=== PATIENT | female | born 1985 | race Caucasian/White ===

== ENCOUNTER 2017-01-10 02:43 | Inpatient (IN) | payer MEDICAID, OTHER ==
[2017-01-10] MEDS ORDERED: ZOFRAN PO ONE (02:59)
[2017-01-10] MEDS ORDERED: ZOFRAN ODT ONE (03:05)
[2017-01-10 03:25] LABS: Hematocrit 37.2 % (30.3-42.9); Mean Corpuscular HGB Conc 35 % (30-34); Mean Corpuscular Hemoglobin 29 pg (28-32); Mean Corpuscular Volume 83 fl (79-97); Platelet Count 305 K/mm3 (140-440); Red Cell Distribution Width 14.3 % (13.2-15.2)
[2017-01-10 03:50] LABS: Alanine Aminotransferase 125 units/L (7-56); Albumin/Globulin Ratio 1.3 %; Alkaline Phosphatase 143 units/L (35-129); Anion Gap 19 mmol/L; BUN/Creatinine Ratio 12; Blood Urea Nitrogen 11 mg/dL (7-17); Calcium 10.3 mg/dL (8.4-10.2); Carbon Dioxide 22 mmol/L (22-30); Chloride 100.6 mmol/L (98-107); Glucose 103 mg/dL (65-100); Lipase 30 units/L (13-60); Potassium 3.7 mmol/L (3.6-5.0); Sodium 138 mmol/L (137-145); Total Protein 7.2 g/dL (6.3-8.2)
[2017-01-10] MEDS ORDERED: ZOFRAN ODT PO ONE (04:00)
[2017-01-10 04:18] LABS: Basophils % (Manual) 0 % (0.0-1.8); Blastocytes % (Manual) 0 %; Diff Status Complete; Eosinophils % (Manual) 0 % (0.0-4.3); Platelet Estimate Consistent w Auto
[2017-01-10 06:02] LABS: Bilirubin,Urine NEG (Negative); Blood,Urine SM (Negative); Ketones,Urine NEG (Negative); Leukocyte Esterase,Urine SM (Negative); Nitrite,Urine NEG (Negative); Protein,Urine <15 mg/dL mg/dL (Negative); Urobilinogen,Urine < 2.0 mg/dL (<2.0)
--- NOTE | 2017-01-10 07:44 | Emergency Department Report ---
Addendum entered and electronically signed by LAURA YOUNG PA 01/10/17 14:16 : Blank Doc - Documentation Documentation: Patient with Temp > 101 and pulse 140. Decision to admit. I collaborated with DR. Torres on patient presentation, labs, and changing status. Decision was made to admit via hospitalist and consult [facility]. [facility] called to inform of plans. Addendum entered and electronically signed by LAURA YOUNG PA 01/10/17 14:07 : Blank Doc - Documentation Documentation: Patient Pulse 140 prior to d/c. IVF x 1 liter and observe Original Note: <LAURA YOUNG - Last Filed: 01/10/17 14:12> ED Abdominal Pain HPI - General Chief Complaint: Abdominal Pain Stated Complaint: LOWER ABD PAIN Time Seen by Provider: 01/10/17 07:20 Source: patient, family Mode of arrival: Ambulatory Limitations: No Limitations - History of Present Illness Initial Comments: Patient airport right lower quadrant abdominal pain since 6:00 yesterday. She reports nausea and vomiting denies any fever or chills. Says the pain is crampy and sharp and radiated into her right back. Patient reports pain is at its 10 out of 10 and constant. She reports nausea and vomiting but denies any fever or chills. Denies any urinary burning frequency or urgency. Patient had a history of kidney stone in the past with previous . MD Complaint: abdominal pain -: Last night Location: RLQ Radiation: R flank Migration to: no migration Severity: severe Severity scale (0 -10): 10 Quality: cramping, stabbing Consistency: constant Improves With: nothing Worsens With: nothing Context: other (unknown) Associated Symptoms: nausea, vomiting. denies: diarrhea, fever, chills, constipation, dysuria, hematemesis, hematochezia, melena, hematuria, anorexia, syncope Treatments Prior to Arrival: other (none) - Related Data Allergies Allergy/AdvReac Type Severity Reaction Status Date / Time No Known Allergies Allergy Verified 08/10/14 08:56 ED Review of Systems ROS: Stated complaint: LOWER ABD PAIN Other details as noted in HPI Comment: All other systems reviewed and negative Constitutional: no symptoms reported Respiratory: no symptoms reported Cardiovascular: denies: chest pain, palpitations, edema, syncope Gastrointestinal: abdominal pain, nausea, vomiting. denies: diarrhea, constipation, hematemesis, melena, hematochezia Genitourinary: denies: urgency, dysuria, frequency, hematuria, discharge Musculoskeletal: back pain. denies: joint swelling, arthralgia, myalgia Skin: denies: rash Neurological: denies: headache, weakness, numbness, paresthesias, confusion, abnormal gait, vertigo ED Past Medical Hx - Past Medical History Previous Medical History?: Yes Hx Hypertension: No Hx Congestive Heart Failure: No Hx Diabetes: No Hx Deep Vein Thrombosis: No Hx Renal Disease: No Hx Sickle Cell Disease: No Hx Seizures: No Hx Asthma: No Hx COPD: No Hx HIV: No - Surgical History Past Surgical History?: Yes Hx Cholecystectomy: Yes ("visicula") Additional Surgical History: x2 - Family History Family history: no significant - Social History Smoking Status: Never Smoker Substance Use Type: None ED Physical Exam - General Limitations: No Limitations General appearance: alert, in no apparent distress - Head Head exam: Present: atraumatic, normocephalic, normal inspection - Eye Eye exam: Present: normal appearance, PERRL, EOMI. Absent: scleral icterus, conjunctival injection, nystagmus, periorbital swelling, periorbital tenderness Pupils: Present: normal accommodation - ENT ENT exam: Present: normal exam, normal orophraynx, mucous membranes moist, TM's normal bilaterally, normal external ear exam - Neck Neck exam: Present: normal inspection, full ROM. Absent: tenderness, meningismus, lymphadenopathy - Respiratory Respiratory exam: Present: normal lung sounds bilaterally. Absent: respiratory distress, wheezes, rales, rhonchi, stridor, chest wall tenderness, accessory muscle use, decreased breath sounds, prolonged expiratory - Cardiovascular Cardiovascular Exam: Present: normal rhythm, tachycardia, normal heart sounds. Absent: systolic murmur, diastolic murmur - GI/Abdominal GI/Abdominal exam: Present: soft, tenderness (generalized tenderness), normal bowel sounds. Absent: distended, guarding, rebound, rigid, organomegaly, mass, bruit, pulsatile mass, hernia - Extremities Exam Extremities exam: Present: normal inspection, full ROM, normal capillary refill , other (No clubbing, cyanosis or edema. +2 pulses in all extremities. No neurovascular compromise). Absent: tenderness, pedal edema, joint swelling, calf tenderness - Back Exam Back exam: Present: normal inspection, full ROM, CVA tenderness (R). Absent: tenderness, CVA tenderness (L), muscle spasm, paraspinal tenderness, vertebral tenderness, rash noted - Neurological Exam Neurological exam: Present: alert, oriented X3, normal gait, reflexes normal. Absent: motor sensory deficit - Psychiatric Psychiatric exam: Present: normal affect, normal mood - Skin Skin exam: Present: warm, dry, intact, normal color. Absent: rash ED Course Vital Signs 01/10/17 01/10/17 01/10/17 02:47 02:53 08:05 Temperature 97.8 F 97.8 F 98.9 F Pulse Rate 122 H 100 H Respiratory 18 16 Rate Blood Pressure 113/74 113/74 Blood Pressure [Left] O2 Sat by Pulse 98 98 Oximetry 01/10/17 01/10/17 01/10/17 08:10 08:15 10:34 Temperature Pulse Rate 115 H Respiratory 20 20 18 Rate Blood Pressure 105/69 Blood Pressure [Left] O2 Sat by Pulse 100 98 Oximetry 01/10/17 01/10/17 01/10/17 12:08 12:55 14:07 Temperature 101.8 F H Pulse Rate 140 H 135 H Respiratory 20 20 16 Rate Blood Pressure 109/58 Blood Pressure 105/57 [Left] O2 Sat by Pulse 94 100 Oximetry - Reevaluation(s) Reevaluation #1: 01/10/17 08:30 Patient given morphine 4 mg IV and Zofran 4 mg IV 2 doses.. she was given 1 L for IV fluids and she is awaiting CT scan with IV contrast. Reevaluation #2: 01/10/17 10:38 reevaluation, patient still with abdominal pain and no change in assessment. Patient's CT scan showed that she has 4 millimeter calculus to the distal ureter , 4 cm proximal to UVJ, with hydronephrosis proximally with perirenal stranding. Patient has no gallbladder due to cholecystectomy. Normal appendix. No evidence of diverticulitis. No bowel distention. Stool in colon. Normal liver, spleen, pancreas. Common bile duct diameter 1.1 cm. No intrahepatic bile rotation. I called [facility] and awaiting call back. She was given additional pain medication. She is given Dilaudid 1 mg IV with Reglan 10 mg IV and to receive ceftriaxone 1 g IV. Reevaluation #3: 01/10/17 12:05 Patient and orally challenged in progress. I spoke with urologist who will see patient in his office tomorrow at 8 AM 01/10/17 12:07 Reevaluation #4: 01/10/17 13:40 I communicated with patient via cobbler apprentice regarding diagnosis, treatment plan and follow-up. I also gave her discharge instruction and Armenian and also information from up-to-date about kidney stones and Armenian. ED Medical Decision Making - Lab Data Result diagrams: 01/10/17 03:11 01/10/17 03:11 Lab Results 01/10/17 01/10/17 01/10/17 Range/Units 03:11 03:11 05:00 WBC 7.0 (4.5-11.0) K/mm3 RBC 4.50 (3.65-5.03) M/mm3 Hgb 13.0 (10.1-14.3) gm/dl Hct 37.2 (30.3-42.9) % MCV 83 (79-97) fl MCH 29 (28-32) pg MCHC 35 H (30-34) % RDW 14.3 (13.2-15.2) % Plt Count 305 (140-440) K/mm3 Add Manual Diff Complete Total Counted 100 Seg Neutrophils % Senior Drafter Seg Neuts % (Manual) 75.0 H (40.0-70.0) % Band Neutrophils % 18.0 % Lymphocytes % (Manual) 5.0 L (13.4-35.0) % Reactive Lymphs % (Man) 0 % Monocytes % (Manual) 1.0 (0.0-7.3) % Eosinophils % (Manual) 0 (0.0-4.3) % Basophils % (Manual) 0 (0.0-1.8) % Metamyelocytes % 0 % Myelocytes % 1.0 % Promyelocytes % 0 % Blast Cells % 0 % Nucleated RBC % Not Reportable Seg Neutrophils # Man 5.3 (1.8-7.7) K/mm3 Band Neutrophils # 1.3 K/mm3 Lymphocytes # (Manual) 0.4 L (1.2-5.4) K/mm3 Abs React Lymphs (Man) 0.0 K/mm3 Monocytes # (Manual) 0.1 (0.0-0.8) K/mm3 Eosinophils # (Manual) 0.0 (0.0-0.4) K/mm3 Basophils # (Manual) 0.0 (0.0-0.1) K/mm3 Metamyelocytes # 0.0 K/mm3 Myelocytes # 0.1 K/mm3 Promyelocytes # 0.0 K/mm3 Blast Cells # 0.0 K/mm3 WBC Morphology Not Reportable Hypersegmented Neuts Not Reportable Hyposegmented Neuts Not Reportable Hypogranular Neuts Not Reportable Smudge Cells Not Reportable Toxic Granulation Not Reportable Toxic Vacuolation Not Reportable Dohle Bodies Not Reportable Pelger-Huet Anomaly Not Reportable Shavon Rods Not Reportable Platelet Estimate Consistent w auto Clumped Platelets Not Reportable Plt Clumps, EDTA Not Reportable Large Platelets Not Reportable Giant Platelets Not Reportable Platelet Satelliting Not Reportable Plt Morphology Comment Not Reportable RBC Morphology Not Reportable Dimorphic RBCs Not Reportable Polychromasia Not Reportable Hypochromasia Not Reportable Poikilocytosis Not Reportable Anisocytosis Not Reportable Microcytosis Not Reportable Macrocytosis Not Reportable Spherocytes Not Reportable Pappenheimer Bodies Not Reportable Sickle Cells Not Reportable Target Cells Not Reportable Tear Drop Cells Not Reportable Ovalocytes Not Reportable Helmet Cells Not Reportable Miller-Kendrick Bodies Not Reportable [place] Rings Not Reportable [place] Cells Not Reportable Bite Cells Not Reportable Crenated Cell Not Reportable Elliptocytes Not Reportable Acanthocytes (Spur) Not Reportable Rouleaux Not Reportable Hemoglobin C Crystals Not Reportable Schistocytes Not Reportable Malaria parasites Not Reportable Donald Bodies Not Reportable Hem Pathologist Commnt No Sodium 138 (137-145) mmol/L Potassium 3.7 (3.6-5.0) mmol/L Chloride 100.6 (98-107) mmol/L Carbon Dioxide 22 (22-30) mmol/L Anion Gap 19 mmol/L BUN 11 (7-17) mg/dL Creatinine 0.9 (0.7-1.2) mg/dL Estimated GFR > 60 ml/min BUN/Creatinine Ratio 12 % Glucose 103 H (65-100) mg/dL Calcium 10.3 H (8.4-10.2) mg/dL Total Bilirubin 0.80 (0.1-1.2) mg/dL AST 161 H (5-40) units/L ALT 125 H (7-56) units/L Alkaline Phosphatase 143 H (35-129) units/L Total Protein 7.2 (6.3-8.2) g/dL Albumin 4.0 (3.9-5) g/dL Albumin/Globulin Ratio 1.3 % Lipase 30 (13-60) units/L Urine Color Yellow (Yellow) Urine Turbidity Clear (Clear) Urine pH 7.0 (5.0-7.0) Ur Specific [place] 1.015 (1.003-1.030) Urine Protein <15 mg/dl (Negative) mg/dL Urine Glucose (UA) Neg (Negative) mg/dL Urine Ketones Neg (Negative) mg/dL Urine Blood Sm (Negative) Urine Nitrite Neg (Negative) Urine Bilirubin Neg (Negative) Urine Urobilinogen < 2.0 (<2.0) mg/dL Ur Leukocyte Esterase Sm (Negative) Urine WBC (Auto) 81.0 H (0.0-6.0) /HPF Urine RBC (Auto) 7.0 (0.0-6.0) /HPF U Epithel Cells (Auto) 2.0 (0-13.0) /HPF Urine HCG, Qual (Negative) 01/10/17 Range/Units 05:00 WBC (4.5-11.0) K/mm3 RBC (3.65-5.03) M/mm3 Hgb (10.1-14.3) gm/dl Hct (30.3-42.9) % MCV (79-97) fl MCH (28-32) pg MCHC (30-34) % RDW (13.2-15.2) % Plt Count (140-440) K/mm3 Add Manual Diff Total Counted Seg Neutrophils % Seg Neuts % (Manual) (40.0-70.0) % Band Neutrophils % % Lymphocytes % (Manual) (13.4-35.0) % Reactive Lymphs % (Man) % Monocytes % (Manual) (0.0-7.3) % Eosinophils % (Manual) (0.0-4.3) % Basophils % (Manual) (0.0-1.8) % Metamyelocytes % % Myelocytes % % Promyelocytes % % Blast Cells % % Nucleated RBC % Seg Neutrophils # Man (1.8-7.7) K/mm3 Band Neutrophils # K/mm3 Lymphocytes # (Manual) (1.2-5.4) K/mm3 Abs React Lymphs (Man) K/mm3 Monocytes # (Manual) (0.0-0.8) K/mm3 Eosinophils # (Manual) (0.0-0.4) K/mm3 Basophils # (Manual) (0.0-0.1) K/mm3 Metamyelocytes # K/mm3 Myelocytes # K/mm3 Promyelocytes # K/mm3 Blast Cells # K/mm3 WBC Morphology Hypersegmented Neuts Hyposegmented Neuts Hypogranular Neuts Smudge Cells Toxic Granulation Toxic Vacuolation Dohle Bodies Pelger-Huet Anomaly Shavon Rods Platelet Estimate Clumped Platelets Plt Clumps, EDTA Large Platelets Giant Platelets Platelet Satelliting Plt Morphology Comment RBC Morphology Dimorphic RBCs Polychromasia Hypochromasia Poikilocytosis Anisocytosis Microcytosis Macrocytosis Spherocytes Pappenheimer Bodies Sickle Cells Target Cells Tear Drop Cells Ovalocytes Helmet Cells Miller-Kendrick Bodies [place] Rings Jamia Cells Bite Cells Crenated Cell Elliptocytes Acanthocytes (Spur) Rouleaux Hemoglobin C Crystals Schistocytes Malaria parasites Donald Bodies Hem Pathologist Commnt Sodium (137-145) mmol/L Potassium (3.6-5.0) mmol/L Chloride (98-107) mmol/L Carbon Dioxide (22-30) mmol/L Anion Gap mmol/L BUN (7-17) mg/dL Creatinine (0.7-1.2) mg/dL Estimated GFR ml/min BUN/Creatinine Ratio % Glucose (65-100) mg/dL Calcium (8.4-10.2) mg/dL Total Bilirubin (0.1-1.2) mg/dL AST (5-40) units/L ALT (7-56) units/L Alkaline Phosphatase (35-129) units/L Total Protein (6.3-8.2) g/dL Albumin (3.9-5) g/dL Albumin/Globulin Ratio % Lipase (13-60) units/L Urine Color (Yellow) Urine Turbidity (Clear) Urine pH (5.0-7.0) Ur Specific [place] (1.003-1.030) Urine Protein (Negative) mg/dL Urine Glucose (UA) (Negative) mg/dL Urine Ketones (Negative) mg/dL Urine Blood (Negative) Urine Nitrite (Negative) Urine Bilirubin (Negative) Urine Urobilinogen (<2.0) mg/dL Ur Leukocyte Esterase (Negative) Urine WBC (Auto) (0.0-6.0) /HPF Urine RBC (Auto) (0.0-6.0) /HPF U Epithel Cells (Auto) (0-13.0) /HPF Urine HCG, Qual Negative (Negative) Urine culture pending - Radiology Data Radiology results: report reviewed CT scan of the abdomen and pelvis with contrast revealed patient with 4 mm kidney stone and right ureter, distally. Stone is 4 cm proximal to UVJ with hydronephrosis and perirenal stranding. Negative for appendicitis, diverticulitis or bowel distention. No abnormality noted in liver, spleen, pancreas. Patient had gallbladder removed in the past. - Medical Decision Making ED course: Patient and presented to the emergency room with her family complaining of right lower quadrant abdominal pain radiating to her right flank. CBC shows she has normal white count without any significant abnormality. CMP reveals patient with mild elevation in calcium normal total bilirubin AST and ALT elevated alkaline phosphate elevated. Urinalysis revealed patient with white blood cell in her urine small amount of leukocyte Estrace is small amount of blood. Urine culture sent and pending. I discussed results with patient via cobbler apprentice. Her family is present. She voiced understanding of discharge instructions and treatment plan and need to follow up tomorrow at [facility] for 8 AM appointment. She was given discharge instruction on kidney stone in Armenian and also given an up-to-date patient education on kidney stone in Armenian. Patient received normal saline 1 L in the emergency room and she was given Zofran 8 mg in 4 mg increments. She was also given morphine 4 mg IV which did not help her pain so she was given Dilaudid 1 mg IV along with Reglan 10 mg IV and she says she has very little pain at present. Patient was orally challenged she is able tolerate fluids without any difficulties. Patient was also given Rocephin 1 g IV in the emergency room without any adverse reaction Patient vital signs remained stable in emergency room. She was discharged home in stable condition with her family with prescription for Percocet, Phenergan and Levaquin. Critical care attestation.: If time is entered above; I have spent that time in minutes in the direct care of this critically ill patient, excluding procedure time. ED Disposition Disposition: [id number] OP ADMIT IP TO THIS HOSP Is pt being admited?: No Does the pt Need Aspirin: No Condition: Stable Additional Instructions: Please follow-up with urology office in the morning at 8 AM These drink 2-3 L of water per day Please read discharge instruction on kidney stone and causes of kidney stone today includes food that causes kidney stones. Take Percocet for pain and Phenergan for nausea but please do not drive or operate heavy machinery while taking these medications as they cause drowsiness Take Levaquin for urinary tract infection. If you developed, increased nausea and vomiting in, increase in pain, fever or chills please return to the emergency room FINA Print Language: BURKINAN <ROSA TORRES - Last Filed: 01/10/17 16:17> ED Medical Decision Making - Lab Data Result diagrams: 01/10/17 03:11 01/10/17 03:11 - Medical Decision Making I have seen and examined this patient myself. I agree with the PA or SEAPORT PLANNING MANAGER plan as discussed. Sky Torres
[2017-01-10] MEDS ORDERED: NACL 0.9% 1000 ML 1,000 ML IV ONE ×2 (07:50→14:11)
[2017-01-10] MEDS ORDERED: MORPHINE IV ONE (07:51)
[2017-01-10] MEDS ORDERED: NACL ONE (08:05)
[2017-01-10] MEDS ORDERED: MORPHINE ONE (08:09)
--- NOTE | 2017-01-10 08:52 | Cat Scan Report ---
CT scan of abdomen and pelvis with IV contrast: History: Abdominal pain. Findings: Normal lung bases. No pleural or pericardial effusion. Normal liver spleen pancreas. Gallbladder not visualized. Common bile duct diameter 1.1 cm. No intrahepatic duct dilatation. Normal adrenals. 5mm calculus distal right ureter with hydronephrosis proximally. Normal bladder. Normal left kidney and collecting system. Normal appendix. No evidence of diverticulitis. No bowel distention. Stool in colon. Impression: Calculus distal right ureter, 4 cm proximal to uv junction, with hydronephrosis proximally with perirenal stranding.
[2017-01-10] MEDS ORDERED: ROCEPHIN/NS 1 GM/50 ML 1 GM/50 ML BAG IV ONE (11:18)
[2017-01-10] MEDS ORDERED: REGLAN IV ONE (11:18)
[2017-01-10] MEDS ORDERED: DILAUDID IM ONE (11:18)
[2017-01-10] MEDS ORDERED: ROCEPHIN ONE (11:20)
[2017-01-10] MEDS ORDERED: MOTRIN PO ONE (14:11)
[2017-01-10] MEDS ORDERED: NACL 0.9% 1000 ML 1,000 ML ONE (14:11)
[2017-01-10] MEDS ORDERED: MOTRIN ONE (14:14)
[2017-01-10] MEDS ORDERED: ZOFRAN IV PRN ×2 (14:29→16:44)
[2017-01-10] MEDS ORDERED: DULCOLAX PR PRN (14:29)
[2017-01-10] MEDS ORDERED: NACL 0.9% 1000 ML IV ONE (14:29)
[2017-01-10] MEDS ORDERED: DILAUDID IV PRN ×2 (14:29→16:44)
[2017-01-10] MEDS ORDERED: PROVENTIL IH PRN ×2 (14:29→20:00)
[2017-01-10] MEDS ORDERED: MILK OF MAGNESIA PO PRN (14:29)
[2017-01-10] MEDS ORDERED: VANCOMYCIN VIAL IV ONE (14:29)
[2017-01-10] MEDS ORDERED: PERCOCET 5/325 PO PRN ×2 (14:29→16:44)
--- NOTE | 2017-01-10 14:34 | History and Physical Report ---
Medications and Allergies Allergies Allergy/AdvReac Type Severity Reaction Status Date / Time No Known Allergies Allergy Verified 08/10/14 08:56 Active Meds: Active Medications Sodium Chloride (Nacl 0.9% 1000 Ml) 1,000 mls @ 999 mls/hr IV BOLUS ONE Stop: 01/10/17 15:11 Last Admin: 01/10/17 14:21 Dose: 999 mls/hr Exam - Constitutional Vitals: Temp Pulse Resp BP Pulse Ox 101.8 F H 135 H 16 105/57 100 01/10/17 14:07 01/10/17 14:07 01/10/17 14:07 01/10/17 14:07 01/10/17 14:07 Results - Labs CBC & Chem 7: 01/10/17 03:11 01/10/17 03:11 Labs: Abnormal lab results 01/10/17 01/10/17 01/10/17 Range/Units 03:11 03:11 05:00 MCHC 35 H (30-34) % Seg Neuts % (Manual) 75.0 H (40.0-70.0) % Lymphocytes % (Manual) 5.0 L (13.4-35.0) % Lymphocytes # (Manual) 0.4 L (1.2-5.4) K/mm3 Glucose 103 H (65-100) mg/dL Calcium 10.3 H (8.4-10.2) mg/dL AST 161 H (5-40) units/L ALT 125 H (7-56) units/L Alkaline Phosphatase 143 H (35-129) units/L Urine WBC (Auto) 81.0 H (0.0-6.0) /HPF
[2017-01-10] MEDS ORDERED: VANCOMYCIN 1,500 MG in NACL 0.9% 500 ML 500 ML IV NR (15:00)
[2017-01-10] MEDS ORDERED: VANCOMYCIN PHARMACY TO DOSE IV SCH (15:00)
[2017-01-10] MEDS ORDERED: NEO SYNEPHRINE/NS Syringe(OR USE) IV ONE (16:00)
[2017-01-10] MEDS ORDERED: AMIDATE IV ONE (16:00)
[2017-01-10] MEDS ORDERED: QUELICIN ONE (16:00)
[2017-01-10] MEDS ORDERED: SUBLIMAZE ONE (16:23)
[2017-01-10] MEDS ORDERED: DIPRIVAN 10 MG/ML IV ONE (16:23)
[2017-01-10] MEDS ORDERED: XYLOCAINE MPF 2% ONE (16:23)
--- NOTE | 2017-01-10 16:39 | Anesthesia Consultation ---
Anesthesia Consult and Med Hx Date of service: 01/10/17 - Airway Anesthetic Teeth Evaluation: Good ROM Head & Neck: Adequate Mental/Hyoid Distance: Adequate Mallampati Class: Class II Intubation Access Assessment: Probably Good - Pulmonary Exam CTA: Yes - Cardiac Exam Cardiac Exam: RRR - Pre-Operative Health Status ASA Pre-Surgery Classification: ASA2 Proposed Anesthetic Plan: General - Pulmonary Hx Asthma: No COPD: No Hx Pneumonia: No - Cardiovascular System Hx Hypertension: No - Central Nervous System Hx Seizures: No Hx Psychiatric Problems: No - Endocrine Hx Renal Disease: No Hx End Stage Renal Disease: No Hx Hypothyroidism: No Hx Hyperthyroidism: No - Hematic Hx Anemia: No Hx Sickle Cell Disease: No - Other Systems Hx Alcohol Use: Yes
--- NOTE | 2017-01-10 16:40 | Anesthesia Day of Surgery ---
Anesthesia Day of Surgery - Day of Surgery Patient Examined: Yes Patient H&P Reviewed: Yes Patient is NPO: No (small amount of water)
[2017-01-10] MEDS ORDERED: PEPCID IV NR (17:00)
[2017-01-10] MEDS ORDERED: ZOSYN/NS 4.5GM/100ML 4.5 GM/100 ML VIAL IV ONE (17:08)
[2017-01-10] MEDS: LACTATED RINGERS 1,000 ML IV SCH (17:10)
[2017-01-10] MEDS ORDERED: OMNIPAQUE 300 MG/50 ML (CATH LAB) IV ONE (17:45)
--- NOTE | 2017-01-10 17:52 | Post Operative Note ---
Date of procedure: 01/10/17 Pre-op diagnosis: urosepsis ureteral stone Post-op diagnosis: same Findings: sever obs pus in ureter Procedure: cysto rpg stent Anesthesia: GETA Surgeon: DERICK ESTEBAN Estimated blood loss: none Pathology: list (culture) Specimen disposition: to lab Condition: stable Disposition: PACU
[2017-01-10] MEDS ORDERED: DECADRON ONE (18:24)
[2017-01-10] MEDS ORDERED: ZOFRAN ONE (18:24)
--- NOTE | 2017-01-10 18:50 | Post Anesthesia Evaluation ---
- Post Anesthesia Evaluation Patient Participated: Yes Airway Patent: Yes Stable Respiratory Function: Yes Temp > 96.8F: Yes Pain Manageable: Yes Adequeate Hydration: Yes Anesthesia Complications: No
[2017-01-10] MEDS ORDERED: ePHEDrine SULFATE IM ONE (18:52)
--- NOTE | 2017-01-10 18:57 | Operative Report ---
PREOPERATIVE DIAGNOSES: Severe right ureteral obstruction, urosepsis, fever and chills. POSTOPERATIVE DIAGNOSES: Severe right ureteral obstruction, urosepsis, fever and chills. PROCEDURE: Cystoscopy, right retrograde with minimal injection, right double-J stent. SURGEON: Felipe Garcia M.D. ANESTHESIA: General. FINDINGS: This is a woman with severe right flank pain, fevers and chills. She was going to go home. She spiked a temperature. White count was 7000. She now presents for treatment. DESCRIPTION OF PROCEDURE: The patient was brought to the operating room and placed on the operating table. Following induction of anesthesia, placed in lithotomy position, prepped and draped in usual sterile fashion. Cystourethroscopy was carried out and showed minimal edema around the right orifice. Cultures were taken. A Glidewire coiled in the kidney and cultures of the bladder, urine and purulent material was obtained. At this point, a double J 26/24 was coiled in the lower pole. The patient tolerated the procedure well. Minimal injection was done in the ureter, approximately 2 mL just to better opacify the kidney. She was brought to recovery in stable condition. JOB# [id number] ASUNCION/WILLEM
--- NOTE | 2017-01-10 19:35 | History and Physical Report ---
History of Present Illness Chief complaint: My stomach hurts History of present illness: 31 YO Female with Nephrolithiasis presents to ED for evaluation. Pt states that she has experienced pain in her lower abdomen for the past 1 day, with worsening symptoms since that time. Pain is 10/10, Radiates to her back, constant, crampy, worse with movement, and relived slightly with non movement. Pt also acknowledges nausea and vomiting and inability to tolerate oral intake , but denies fever or chills. Pt seen and evaluated in ED and underwent CT abdomen which revealed an obstructing Right UPJ stone with hydronephrosis. Pt also found to have Sepsis secondary to cystitis. Pt initiated on sepsis protocol. Urology consulted in ED and the patient was taken urgently to the OR for intervention. Past History Past Medical History: other (Nephrolithiasis) Past Surgical History: cholecystectomy, Social history: single. denies: smoking, alcohol abuse, prescription drug abuse Family history: no significant family history (reviewed) Medications and Allergies Allergies Allergy/AdvReac Type Severity Reaction Status Date / Time No Known Allergies Allergy Verified 08/10/14 08:56 Active Meds: Active Medications Famotidine (Pepcid) 20 mg IV PREOP NR Stop: 01/10/17 23:59 Last Admin: 01/10/17 17:11 Dose: 20 mg Hydromorphone HCl (Dilaudid) 0.5 mg IV Q10MIN PRN PRN Reason: Severe Pain Stop: 01/13/17 16:45 Lactated Ringer's (Lactated Ringers) 1,000 mls @ 100 mls/hr IV DIRECT PHANI Last Admin: 01/10/17 17:10 Dose: 100 mls/hr Review of Systems Constitutional: no weight loss, no weight gain, no fever, no chills Ears, nose, mouth and throat: no ear pain, no ear discharge, no tinnitis, no decreased hearing, no nose pain, no nasal congestion, no nasal discharge Breasts: no change in shape, no swelling, no mass Cardiovascular: no chest pain, no orthopnea, no palpitations, no rapid/ irregular heart beat, no edema, no syncope Respiratory: no cough, no cough with sputum, no excessive sputum, no hemoptysis , no shortness of breath Gastrointestinal: abdominal pain, nausea, vomiting, no diarrhea, no constipation , no change in bowel habits, no hematemesis, no BRBPR Genitourinary Female: flank pain, no pelvic pain, no menorrhagia Rectal: no pain, no incontinence, no bleeding Musculoskeletal: no neck stiffness, no neck pain, no shooting arm pain, no arm numbness/tingling, no low back pain Integumentary: no rash, no pruritis, no redness, no sores, no wounds, no jaundice Neurological: no head injury, no transient paralysis, no paralysis, no weakness , no parathesias, no numbness, no tingling, no seizures Psychiatric: no anxiety, no memory loss, no change in sleep habits, no sleep disturbances, no insomnia, no hypersomnia, no change in appetite Endocrine: no cold intolerance, no heat intolerance, no polyphagia, no excessive thirst, no polydipsia, no polyuria, no nocturia Hematologic/Lymphatic: no easy bruising, no easy bleeding Allergic/Immunologic: no urticaria, no allergic rhinitis, no wheezing Exam - Constitutional Vitals: Temp Pulse Resp BP Pulse Ox 100.8 F H 128 H 26 H 101/60 96 01/10/17 17:15 01/10/17 17:15 01/10/17 17:15 01/10/17 17:15 01/10/17 17:15 General appearance: Present: severe distress - EENT Eyes: Present: PERRL ENT: hearing intact, clear oral mucosa - Neck Neck: Present: supple, normal ROM - Respiratory Respiratory effort: normal Respiratory: bilateral: CTA - Cardiovascular Heart Sounds: Present: S1 & S2. Absent: rub, click - Extremities Extremities: pulses symmetrical, No edema Peripheral Pulses: within normal limits - Abdominal General gastrointestinal: Present: soft, tender Female genitourinary: Present: normal - Integumentary Integumentary: Present: clear, warm, dry - Musculoskeletal Musculoskeletal: gait normal, strength equal bilaterally - Psychiatric Psychiatric: appropriate mood/affect, intact judgment & insight - Neurologic Neurologic: CNII-XII intact, moves all extremities Results - Labs CBC & Chem 7: 01/10/17 03:11 01/10/17 03:11 Labs: Abnormal lab results 01/10/17 01/10/17 01/10/17 Range/Units 03:11 03:11 05:00 MCHC 35 H (30-34) % Seg Neuts % (Manual) 75.0 H (40.0-70.0) % Lymphocytes % (Manual) 5.0 L (13.4-35.0) % Lymphocytes # (Manual) 0.4 L (1.2-5.4) K/mm3 Glucose 103 H (65-100) mg/dL Lactic Acid (0.7-2.0) mmol/L Calcium 10.3 H (8.4-10.2) mg/dL AST 161 H (5-40) units/L ALT 125 H (7-56) units/L Alkaline Phosphatase 143 H (35-129) units/L Urine WBC (Auto) 81.0 H (0.0-6.0) /HPF 01/10/ Range/Units 15:00 MCHC (30-34) % Seg Neuts % (Manual) (40.0-70.0) % Lymphocytes % (Manual) (13.4-35.0) % Lymphocytes # (Manual) (1.2-5.4) K/mm3 Glucose (65-100) mg/dL Lactic Acid 2.90 H* (0.7-2.0) mmol/L Calcium (8.4-10.2) mg/dL AST (5-40) units/L ALT (7-56) units/L Alkaline Phosphatase (35-129) units/L Urine WBC (Auto) (0.0-6.0) /HPF Assessment and Plan - Patient Problems (1) Sepsis Current Visit: Yes Status: Acute Qualifiers: Sepsis type: S Plan to address problem: IV abx, IVF, monitor uop q shift, blood cultures, urinalysis and culture, serial lactic acid, am BMP. 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 (5) Nausea & vomiting Current Visit: Yes Status: Acute Qualifiers: Vomiting type: unspecified Vomiting Intractability: non-intractable Qualified Code(s): R11.2 - Nausea with vomiting, unspecified Plan to address problem: Anti emetic therapy, IVF resuscitation, supportive care. (6) Nephrolithiasis Current Visit: Yes Status: Acute Plan to address problem: Urology consulted, IVF, supportive care, Pain control. (7) DVT prophylaxis Current Visit: Yes Status: Acute
[2017-01-10] MEDS ORDERED: TYLENOL PO PRN (19:36)
[2017-01-10] MEDS ORDERED: ZOSYN/NS 4.5GM/100ML 4.5 GM/100 ML VIAL IV SCH (22:00)
[2017-01-11] MEDS: LACTATED RINGERS 1,000 ML IV SCH (01:27)
[2017-01-11] MEDS: PERCOCET 5/325 PO PRN ×3 (01:40→18:14)
--- NOTE | 2017-01-11 02:30 | Consultation ---
HISTORY OF PRESENT ILLNESS: The patient is a 31-year-old woman who presented to the Emergency Room with unremitting right flank pain and nausea. She was about to be discharged. She spiked a temperature to 102. Her white count is 7000, but she has shaking chills. She has a distal ureteral stone and she now presents for stenting. All risks and complications were discussed. She was supposed to see me tomorrow, but the pain became severe and she spiked a temperature. PAST MEDICAL HISTORY: Gallstones. PAST SURGICAL HISTORY: Cholecystectomy. ALLERGIES: Negative. MEDICATIONS: None regularly. SOCIAL HISTORY: Negative. FAMILY HISTORY: Noncontributory. REVIEW OF SYSTEMS: Severe pain, fevers and chills. PHYSICAL EXAMINATION: GENERAL: She is awake, alert. She looks sick. She is in moderate discomfort. She is tachycardic. HEENT: Normocephalic, nontraumatic. NECK: Supple. RESPIRATORY: Respirations unlabored. ABDOMEN: Soft, nondistended. Moderate right CVA tenderness. IMPRESSION: Right distal ureteral stone. I explained that we will not go after the stone. We will drain the kidney with stent. She may need percutaneous nephrostomy if the stent is not successful. We will go after the stone at a later date after the infection is treated. Thank you very much. JOB# [id number] ASUNCION/WILLEM
[2017-01-11] MEDS ORDERED: NACL 0.9% IV ONE (09:25)
[2017-01-11] MEDS ORDERED: NACL 0.9% 500 ML 500 ML ONE (09:49)
[2017-01-11] MEDS ORDERED: FLOMAX PO SCH (10:00)
--- NOTE | 2017-01-11 10:06 | Fluoroscopy Report ---
Right retrograde pyelogram. Findings: There is a prominent stone in the distal right ureter with mild to moderate dilatation of the ureter proximal to this point and mild hydronephrosis. On the final image, a double-J ureteral stent is demonstrated in satisfactory position. The stone is unchanged in position. Impression: Distal right ureteral stone with mild obstructive uropathy.
[2017-01-11] MEDS ORDERED: NACL 0.9% 500 ML 500 ML IV SCH (10:30)
[2017-01-11] MEDS: ROCEPHIN/NS 2 GM/100 ML 2 GM/100 ML BAG IV SCH (12:03)
[2017-01-11] MEDS: ZOFRAN IV PRN (14:00)
--- NOTE | 2017-01-11 16:29 | Progress Note ---
Assessment and Plan post stent r ureteral stone iv abs for sepsis cultures pending needs f/u stone extraction Subjective Date of service: 01/11/17 Principal diagnosis: urosepsis Objective - Constitutional Vitals: Vital Signs - 12hr 01/11/17 01/11/17 01/11/17 05:23 05:26 08:15 Temperature 97.5 F L 98.0 F Pulse Rate 99 H 107 H Respiratory 16 18 Rate Blood Pressure 87/58 96/62 O2 Sat by Pulse 100 93 100 Oximetry 01/11/17 01/11/17 01/11/17 09:39 09:40 11:42 Temperature 99.7 F H Pulse Rate 118 H Respiratory 18 Rate Blood Pressure 111/76 O2 Sat by Pulse 93 98 100 Oximetry 01/11/17 11:52 Temperature 98.1 F Pulse Rate 68 Respiratory 18 Rate Blood Pressure 117/75 O2 Sat by Pulse 97 Oximetry General appearance: Present: no acute distress - Neck Neck: supple - Respiratory Respiratory effort: normal - Labs CBC & Chem 7: 01/10/17 03:11 01/10/17 03:11 Labs: Abnormal lab results 01/10/17 01/11/17 Range/Units 23:59 01:15 Lactic Acid 2.50 H* 2.60 H* (0.7-2.0) mmol/L
--- NOTE | 2017-01-11 17:47 | Progress Note ---
Assessment and Plan Assessment and plan: 31 years old obese female presented for severe right flank pain associated with fever and chills; found to have nephrolithiasis (stone in right distal ureter with obstructive uropathy) and underwent cystography and right retrograde pyelogram with stent placement 1. Sepsis Secondary to UTI/pyelonephritis Elevated lactic acid Cultures obtained Started on IV antibiotics, IV fluids 2. Nephrolithiasis Right distal ureter stone with obstructive uropathy Urology consulted and underwent cystoscopy/RPG with stent placement Pain control medications, IV hydration, antibiotics 3. Nausea and vomiting Secondary to #1, 2 Antiemetics, IV fluids 4. Hyperglycemia Likely stress reaction Accu-Cheks and SSI 5. Elevated LFTs Trending down 6. DVT prophylaxis History Interval history: Nauseated, throwing up, c/o abd pain Multiple family members present, translating Hospitalist Physical - Constitutional Vitals: Temp Pulse Resp BP Pulse Ox 99.9 F H 114 H 18 107/70 100 01/11/17 17:08 01/11/17 17:08 01/11/17 17:08 01/11/17 17:08 01/11/17 17:08 General appearance: Present: no acute distress, obese - EENT Eyes: Present: PERRL, EOM intact. Absent: scleral icterus, conjunctival injection - Neck Neck: Present: supple. Absent: enlarged thyroid, masses or JVD - Respiratory Respiratory effort: normal Respiratory: bilateral: diminished (bibasilar), negative: rhonchi, wheezing - Cardiovascular Rhythm: other (tachycardia) Heart Sounds: Present: S1 & S2. Absent: systolic murmur - Extremities Extremities: no ischemia - Abdominal General gastrointestinal: soft, tender, non-distended, normal bowel sounds - Integumentary Integumentary: Present: warm, dry. Absent: jaundice, rash - Psychiatric Psychiatric: cooperative - Neurologic Neurologic: CNII-XII intact, no focal deficits Results - Labs CBC & Chem 7: 01/12/17 09:59 01/12/17 09:59 Labs: Laboratory Last Values WBC 7.0 K/mm3 (4.5-11.0) 01/10/17 03:11 RBC 4.50 M/mm3 (3.65-5.03) 01/10/17 03:11 Hgb 13.0 gm/dl (10.1-14.3) 01/10/17 03:11 Hct 37.2 % (30.3-42.9) 01/10/17 03:11 MCV 83 fl (79-97) 01/10/17 03:11 MCH 29 pg (28-32) 01/10/17 03:11 MCHC 35 % (30-34) H 01/10/17 03:11 RDW 14.3 % (13.2-15.2) 01/10/17 03:11 Plt Count 305 K/mm3 (140-440) 01/10/17 03:11 Add Manual Diff Complete 01/10/17 03:11 Total Counted 100 01/10/17 03:11 Seg Neutrophils % Drop Forger 01/10/17 03:11 Seg Neuts % (Manual) 75.0 % (40.0-70.0) H 01/10/17 03:11 Band Neutrophils % 18.0 % 01/10/17 03:11 Lymphocytes % (Manual) 5.0 % (13.4-35.0) L 01/10/17 03:11 Reactive Lymphs % (Man) 0 % 01/10/17 03:11 Monocytes % (Manual) 1.0 % (0.0-7.3) 01/10/17 03:11 Eosinophils % (Manual) 0 % (0.0-4.3) 01/10/17 03:11 Basophils % (Manual) 0 % (0.0-1.8) 01/10/17 03:11 Metamyelocytes % 0 % 01/10/17 03:11 Myelocytes % 1.0 % 01/10/17 03:11 Promyelocytes % 0 % 01/10/17 03:11 Blast Cells % 0 % 01/10/17 03:11 Nucleated RBC % Not Reportable 01/10/17 03:11 Seg Neutrophils # Man 5.3 K/mm3 (1.8-7.7) 01/10/17 03:11 Band Neutrophils # 1.3 K/mm3 01/10/17 03:11 Lymphocytes # (Manual) 0.4 K/mm3 (1.2-5.4) L 01/10/17 03:11 Abs React Lymphs (Man) 0.0 K/mm3 01/10/17 03:11 Monocytes # (Manual) 0.1 K/mm3 (0.0-0.8) 01/10/17 03:11 Eosinophils # (Manual) 0.0 K/mm3 (0.0-0.4) 01/10/17 03:11 Basophils # (Manual) 0.0 K/mm3 (0.0-0.1) 01/10/17 03:11 Metamyelocytes # 0.0 K/mm3 01/10/17 03:11 Myelocytes # 0.1 K/mm3 01/10/17 03:11 Promyelocytes # 0.0 K/mm3 01/10/17 03:11 Blast Cells # 0.0 K/mm3 01/10/17 03:11 WBC Morphology Not Reportable 01/10/17 03:11 Hypersegmented Neuts Not Reportable 01/10/17 03:11 Hyposegmented Neuts Not Reportable 01/10/17 03:11 Hypogranular Neuts Not Reportable 01/10/17 03:11 Smudge Cells Not Reportable 01/10/17 03:11 Toxic Granulation Not Reportable 01/10/17 03:11 Toxic Vacuolation Not Reportable 01/10/17 03:11 Dohle Bodies Not Reportable 01/10/17 03:11 Pelger-Huet Anomaly Not Reportable 01/10/17 03:11 Shavon Rods Not Reportable 01/10/17 03:11 Platelet Estimate Consistent w auto 01/10/17 03:11 Clumped Platelets Not Reportable 01/10/17 03:11 Plt Clumps, EDTA Not Reportable 01/10/17 03:11 Large Platelets Not Reportable 01/10/17 03:11 Giant Platelets Not Reportable 01/10/17 03:11 Platelet Satelliting Not Reportable 01/10/17 03:11 Plt Morphology Comment Not Reportable 01/10/17 03:11 RBC Morphology Not Reportable 01/10/17 03:11 Dimorphic RBCs Not Reportable 01/10/17 03:11 Polychromasia Not Reportable 01/10/17 03:11 Hypochromasia Not Reportable 01/10/17 03:11 Poikilocytosis Not Reportable 01/10/17 03:11 Anisocytosis Not Reportable 01/10/17 03:11 Microcytosis Not Reportable 01/10/17 03:11 Macrocytosis Not Reportable 01/10/17 03:11 Spherocytes Not Reportable 01/10/17 03:11 Pappenheimer Bodies Not Reportable 01/10/17 03:11 Sickle Cells Not Reportable 01/10/17 03:11 Target Cells Not Reportable 01/10/17 03:11 Tear Drop Cells Not Reportable 01/10/17 03:11 Ovalocytes Not Reportable 01/10/17 03:11 Helmet Cells Not Reportable 01/10/17 03:11 Miller-Laplace Bodies Not Reportable 01/10/17 03:11 Weiner Rings Not Reportable 01/10/17 03:11 Monroe Cells Not Reportable 01/10/17 03:11 Bite Cells Not Reportable 01/10/17 03:11 Crenated Cell Not Reportable 01/10/17 03:11 Elliptocytes Not Reportable 01/10/17 03:11 Acanthocytes (Spur) Not Reportable 01/10/17 03:11 Rouleaux Not Reportable 01/10/17 03:11 Hemoglobin C Crystals Not Reportable 01/10/17 03:11 Schistocytes Not Reportable 01/10/17 03:11 Malaria parasites Not Reportable 01/10/17 03:11 Donald Bodies Not Reportable 01/10/17 03:11 Hem Pathologist Commnt No 01/10/17 03:11 Sodium 138 mmol/L (137-145) 01/10/17 03:11 Potassium 3.7 mmol/L (3.6-5.0) 01/10/17 03:11 Chloride 100.6 mmol/L (98-107) 01/10/17 03:11 Carbon Dioxide 22 mmol/L (22-30) 01/10/17 03:11 Anion Gap 19 mmol/L 01/10/17 03:11 BUN 11 mg/dL (7-17) 01/10/17 03:11 Creatinine 0.9 mg/dL (0.7-1.2) 01/10/17 03:11 Estimated GFR > 60 ml/min 01/10/17 03:11 BUN/Creatinine Ratio 12 % 01/10/17 03:11 Glucose 103 mg/dL (65-100) H 01/10/17 03:11 POC Glucose 97 (70-105) 01/10/17 08:17 Lactic Acid 2.60 mmol/L (0.7-2.0) H* 01/11/17 01:15 Calcium 10.3 mg/dL (8.4-10.2) H 01/10/17 03:11 Total Bilirubin 0.80 mg/dL (0.1-1.2) 01/10/17 03:11 AST 161 units/L (5-40) H 01/10/17 03:11 ALT 125 units/L (7-56) H 01/10/17 03:11 Alkaline Phosphatase 143 units/L (35-129) H 01/10/17 03:11 Total Protein 7.2 g/dL (6.3-8.2) 01/10/17 03:11 Albumin 4.0 g/dL (3.9-5) 01/10/17 03:11 Albumin/Globulin Ratio 1.3 % 01/10/17 03:11 Lipase 30 units/L (13-60) 01/10/17 03:11 Urine Color Yellow (Yellow) 01/10/17 05:00 Urine Turbidity Clear (Clear) 01/10/17 05:00 Urine pH 7.0 (5.0-7.0) 01/10/17 05:00 Ur Specific [place] 1.015 (1.003-1.030) 01/10/17 05:00 Urine Protein <15 mg/dl mg/dL (Negative) 01/10/17 05:00 Urine Glucose (UA) Neg mg/dL (Negative) 01/10/17 05:00 Urine Ketones Neg mg/dL (Negative) 01/10/17 05:00 Urine Blood Sm (Negative) 01/10/17 05:00 Urine Nitrite Neg (Negative) 01/10/17 05:00 Urine Bilirubin Neg (Negative) 01/10/17 05:00 Urine Urobilinogen < 2.0 mg/dL (<2.0) 01/10/17 05:00 Ur Leukocyte Esterase Sm (Negative) 01/10/17 05:00 Urine WBC (Auto) 81.0 /HPF (0.0-6.0) H 01/10/17 05:00 Urine RBC (Auto) 7.0 /HPF (0.0-6.0) 01/10/17 05:00 U Epithel Cells (Auto) 2.0 /HPF (0-13.0) 01/10/17 05:00 Urine HCG, Qual Negative (Negative) 01/10/17 05:00
[2017-01-12] MEDS: PERCOCET 5/325 PO PRN ×5 (00:15→21:59)
[2017-01-12] MEDS: LACTATED RINGERS 1,000 ML IV SCH ×3 (00:30→21:59)
[2017-01-12 10:35] LABS: Hematocrit 34.3 % (30.3-42.9); Hemoglobin 11.4 gm/dl (10.1-14.3); Mean Corpuscular HGB Conc 33 % (30-34); Mean Corpuscular Hemoglobin 28 pg (28-32); Mean Corpuscular Volume 85 fl (79-97); Red Blood Count 4.05 M/mm3 (3.65-5.03); Red Cell Distribution Width 15.3 % (13.2-15.2); White Blood Count 12.4 K/mm3 (4.5-11.0)
[2017-01-12 10:45] LABS: Platelet Count 91 K/mm3 (140-440)
[2017-01-12] MEDS: ROCEPHIN/NS 2 GM/100 ML 2 GM/100 ML BAG IV SCH (11:01)
[2017-01-12 11:18] LABS: Alanine Aminotransferase 143 units/L (7-56); Albumin 2.4 g/dL (3.9-5); Albumin/Globulin Ratio 0.7 %; Alkaline Phosphatase 136 units/L (35-129); Anion Gap 17 mmol/L; BUN/Creatinine Ratio 20; Blood Urea Nitrogen 14 mg/dL (7-17); Calcium 10.2 mg/dL (8.4-10.2); Carbon Dioxide 20 mmol/L (22-30); Chloride 105.7 mmol/L (98-107); Glucose 115 mg/dL (65-100); Sodium 139 mmol/L (137-145)
[2017-01-12 11:33] LABS: Anisocytosis 1+; Basophils % (Manual) 0 % (0.0-1.8); Blastocytes % (Manual) 0 %; Dohle Bodies 1+; Eosinophils % (Manual) 0 % (0.0-4.3); Total Cells Counted Percent 0
[2017-01-12 11:35] LABS: Diff Status Complete; Platelet Estimate Consistent w Auto
--- NOTE | 2017-01-12 15:51 | Progress Note ---
Assessment and Plan still c/o pain ok to discharge on percocet and po antibiotics if ok with med and pain improved if no will do cysto and removed stone as in patient or place a perc Subjective Date of service: 01/12/17 Principal diagnosis: urosepsis Objective - Constitutional Vitals: Vital Signs - 12hr 01/12/17 01/12/17 01/12/17 05:00 05:16 07:14 Temperature 99.0 F 98.8 F Pulse Rate 104 H 106 H Respiratory 26 H 18 Rate Blood Pressure 131/86 119/71 O2 Sat by Pulse 93 Oximetry 01/12/17 01/12/17 01/12/17 09:21 11:14 15:04 Temperature 98.8 F 99.7 F H Pulse Rate 113 H 118 H Respiratory 18 18 Rate Blood Pressure 112/82 123/81 O2 Sat by Pulse 92 90 90 Oximetry General appearance: Present: mild distress - Neck Neck: supple - Respiratory Respiratory effort: normal Extremities: no ischemia - Gastrointestinal General gastrointestinal: Present: tender - Labs CBC & Chem 7: 01/12/17 09:59 01/12/17 09:59 Labs: Abnormal lab results 01/12/17 01/12/17 Range/Units 09:59 09:59 WBC 12.4 H (4.5-11.0) K/mm3 RDW 15.3 H (13.2-15.2) % Plt Count 91 L (140-440) K/mm3 Seg Neuts % (Manual) 88.0 H (40.0-70.0) % Lymphocytes % (Manual) 1.0 L (13.4-35.0) % Seg Neutrophils # Man 10.9 H (1.8-7.7) K/mm3 Lymphocytes # (Manual) 0.1 L (1.2-5.4) K/mm3 Carbon Dioxide 20 L (22-30) mmol/L Glucose 115 H (65-100) mg/dL AST 83 H (5-40) units/L ALT 143 H (7-56) units/L Alkaline Phosphatase 136 H (35-129) units/L Total Protein 6.0 L (6.3-8.2) g/dL Albumin 2.4 L (3.9-5) g/dL
--- NOTE | 2017-01-12 20:08 | Progress Note ---
Assessment and Plan Assessment and plan: 31 years old obese female presented for severe right flank pain associated with fever and chills; found to have nephrolithiasis (stone in right distal ureter with obstructive uropathy) and underwent cystography and right retrograde pyelogram with stent placement 1. Sepsis Secondary to UTI/pyelonephritis Elevated lactic acid Cultures obtained Continue IV antibiotics, IV fluids 2. Nephrolithiasis Right distal ureter stone with obstructive uropathy Urology consulted and underwent cystoscopy/RPG with stent placement; plan for possible cystoscopy with stone removal versus percutaneous nephrostomy Continue pain control medications, IV hydration, antibiotics 3. Nausea and vomiting Secondary to #1, 2 Antiemetics, IV fluids 4. Hyperglycemia Likely stress reaction Accu-Cheks and SSI 5. Elevated LFTs Trending down 6. Obesity 7. DVT prophylaxis History Interval history: Still complaining of significant pain; continues to be nauseated Hospitalist Physical - Constitutional Vitals: Temp Pulse Resp BP Pulse Ox 99.7 F H 118 H 18 123/81 90 01/12/17 15:04 01/12/17 15:04 01/12/17 15:04 01/12/17 15:04 01/12/17 15:04 General appearance: Present: no acute distress, obese - EENT Eyes: Present: PERRL, EOM intact - Neck Neck: Present: supple, normal ROM. Absent: masses or JVD - Respiratory Respiratory effort: normal Respiratory: bilateral: CTA, negative: rhonchi, wheezing - Cardiovascular Rhythm: other (tachycardic) Heart Sounds: Present: S1 & S2. Absent: systolic murmur - Extremities Extremities: no ischemia - Abdominal General gastrointestinal: soft, tender, non-distended, normal bowel sounds - Neurologic Neurologic: CNII-XII intact, no focal deficits Results - Labs CBC & Chem 7: 01/12/17 09:59 01/12/17 09:59 Labs: Laboratory Last Values WBC 12.4 K/mm3 (4.5-11.0) H 01/12/17 09:59 RBC 4.05 M/mm3 (3.65-5.03) 01/12/17 09:59 Hgb 11.4 gm/dl (10.1-14.3) 01/12/17 09:59 Hct 34.3 % (30.3-42.9) 01/12/17 09:59 MCV 85 fl (79-97) 01/12/17 09:59 MCH 28 pg (28-32) 01/12/17 09:59 MCHC 33 % (30-34) 01/12/17 09:59 RDW 15.3 % (13.2-15.2) H 01/12/17 09:59 Plt Count 91 K/mm3 (140-440) L 01/12/17 09:59 Add Manual Diff Complete 01/12/17 09:59 Total Counted 100 01/12/17 09:59 Seg Neutrophils % Medical Assistant Ob Gyn 01/10/17 03:11 Seg Neuts % (Manual) 88.0 % (40.0-70.0) H 01/12/17 09:59 Band Neutrophils % 11.0 % 01/12/17 09:59 Lymphocytes % (Manual) 1.0 % (13.4-35.0) L 01/12/17 09:59 Reactive Lymphs % (Man) 0 % 01/12/17 09:59 Monocytes % (Manual) 0 % (0.0-7.3) 01/12/17 09:59 Eosinophils % (Manual) 0 % (0.0-4.3) 01/12/17 09:59 Basophils % (Manual) 0 % (0.0-1.8) 01/12/17 09:59 Metamyelocytes % 0 % 01/12/17 09:59 Myelocytes % 0 % 01/12/17 09:59 Promyelocytes % 0 % 01/12/17 09:59 Blast Cells % 0 % 01/12/17 09:59 Nucleated RBC % Not Reportable 01/12/17 09:59 Seg Neutrophils # Man 10.9 K/mm3 (1.8-7.7) H 01/12/17 09:59 Band Neutrophils # 1.4 K/mm3 01/12/17 09:59 Lymphocytes # (Manual) 0.1 K/mm3 (1.2-5.4) L 01/12/17 09:59 Abs React Lymphs (Man) 0.0 K/mm3 01/12/17 09:59 Monocytes # (Manual) 0.0 K/mm3 (0.0-0.8) 01/12/17 09:59 Eosinophils # (Manual) 0.0 K/mm3 (0.0-0.4) 01/12/17 09:59 Basophils # (Manual) 0.0 K/mm3 (0.0-0.1) 01/12/17 09:59 Metamyelocytes # 0.0 K/mm3 01/12/17 09:59 Myelocytes # 0.0 K/mm3 01/12/17 09:59 Promyelocytes # 0.0 K/mm3 01/12/17 09:59 Blast Cells # 0.0 K/mm3 01/12/17 09:59 WBC Morphology Not Reportable 01/12/17 09:59 Hypersegmented Neuts Not Reportable 01/12/17 09:59 Hyposegmented Neuts Not Reportable 01/12/17 09:59 Hypogranular Neuts Not Reportable 01/12/17 09:59 Smudge Cells Not Reportable 01/12/17 09:59 Toxic Granulation Not Reportable 01/12/17 09:59 Toxic Vacuolation Not Reportable 01/12/17 09:59 Dohle Bodies 1+ 01/12/17 09:59 Pelger-Huet Anomaly Not Reportable 01/12/17 09:59 Shavon Rods Not Reportable 01/12/17 09:59 Platelet Estimate Consistent w auto 01/12/17 09:59 Clumped Platelets Not Reportable 01/12/17 09:59 Plt Clumps, EDTA Not Reportable 01/12/17 09:59 Large Platelets Not Reportable 01/12/17 09:59 Giant Platelets Not Reportable 01/12/17 09:59 Platelet Satelliting Not Reportable 01/12/17 09:59 Plt Morphology Comment Not Reportable 01/12/17 09:59 RBC Morphology Not Reportable 01/12/17 09:59 Dimorphic RBCs Not Reportable 01/12/17 09:59 Polychromasia Not Reportable 01/12/17 09:59 Hypochromasia Not Reportable 01/12/17 09:59 Poikilocytosis Not Reportable 01/12/17 09:59 Anisocytosis 1+ 01/12/17 09:59 Microcytosis Not Reportable 01/12/17 09:59 Macrocytosis Not Reportable 01/12/17 09:59 Spherocytes Not Reportable 01/12/17 09:59 Pappenheimer Bodies Not Reportable 01/12/17 09:59 Sickle Cells Not Reportable 01/12/17 09:59 Target Cells Not Reportable 01/12/17 09:59 Tear Drop Cells Not Reportable 01/12/17 09:59 Ovalocytes Not Reportable 01/12/17 09:59 Helmet Cells Not Reportable 01/12/17 09:59 [place] Bodies Not Reportable 01/12/17 09:59 [place] Rings Not Reportable 01/12/17 09:59 Jamia Cells Not Reportable 01/12/17 09:59 Bite Cells Not Reportable 01/12/17 09:59 Crenated Cell Not Reportable 01/12/17 09:59 Elliptocytes Not Reportable 01/12/17 09:59 Acanthocytes (Spur) Not Reportable 01/12/17 09:59 Rouleaux Not Reportable 01/12/17 09:59 Hemoglobin C Crystals Not Reportable 01/12/17 09:59 Schistocytes Not Reportable 01/12/17 09:59 Malaria parasites Not Reportable 01/12/17 09:59 Donald Bodies Not Reportable 01/12/17 09:59 Hem Pathologist Commnt No 01/12/17 09:59 Sodium 139 mmol/L (137-145) 01/12/17 09:59 Potassium 4.0 mmol/L (3.6-5.0) 01/12/17 09:59 Chloride 105.7 mmol/L (98-107) 01/12/17 09:59 Carbon Dioxide 20 mmol/L (22-30) L 01/12/17 09:59 Anion Gap 17 mmol/L 01/12/17 09:59 BUN 14 mg/dL (7-17) 01/12/17 09:59 Creatinine 0.7 mg/dL (0.7-1.2) 01/12/17 09:59 Estimated GFR > 60 ml/min 01/12/17 09:59 BUN/Creatinine Ratio 20 % 01/12/17 09:59 Glucose 115 mg/dL (65-100) H 01/12/17 09:59 POC Glucose 97 (70-105) 01/10/17 08:17 Lactic Acid 2.60 mmol/L (0.7-2.0) H* 01/11/17 01:15 Calcium 10.2 mg/dL (8.4-10.2) 01/12/17 09:59 Magnesium 1.80 mg/dL (1.7-2.3) 01/12/17 09:59 Total Bilirubin 0.70 mg/dL (0.1-1.2) 01/12/17 09:59 AST 83 units/L (5-40) H 01/12/17 09:59 ALT 143 units/L (7-56) H 01/12/17 09:59 Alkaline Phosphatase 136 units/L (35-129) H 01/12/17 09:59 Total Protein 6.0 g/dL (6.3-8.2) L 01/12/17 09:59 Albumin 2.4 g/dL (3.9-5) L 01/12/17 09:59 Albumin/Globulin Ratio 0.7 % 01/12/17 09:59 Lipase 30 units/L (13-60) 01/10/17 03:11 Urine Color Yellow (Yellow) 01/10/17 05:00 Urine Turbidity Clear (Clear) 01/10/17 05:00 Urine pH 7.0 (5.0-7.0) 01/10/17 05:00 Ur Specific [place] 1.015 (1.003-1.030) 01/10/17 05:00 Urine Protein <15 mg/dl mg/dL (Negative) 01/10/17 05:00 Urine Glucose (UA) Neg mg/dL (Negative) 01/10/17 05:00 Urine Ketones Neg mg/dL (Negative) 01/10/17 05:00 Urine Blood Sm (Negative) 01/10/17 05:00 Urine Nitrite Neg (Negative) 01/10/17 05:00 Urine Bilirubin Neg (Negative) 01/10/17 05:00 Urine Urobilinogen < 2.0 mg/dL (<2.0) 01/10/17 05:00 Ur Leukocyte Esterase Sm (Negative) 01/10/17 05:00 Urine WBC (Auto) 81.0 /HPF (0.0-6.0) H 01/10/17 05:00 Urine RBC (Auto) 7.0 /HPF (0.0-6.0) 01/10/17 05:00 U Epithel Cells (Auto) 2.0 /HPF (0-13.0) 01/10/17 05:00 Urine HCG, Qual Negative (Negative) 01/10/17 05:00
[2017-01-12] MEDS: ZOFRAN IV PRN (21:58)
[2017-01-13] MEDS: PERCOCET 5/325 PO PRN ×2 (01:59→21:39)
[2017-01-13] MEDS: LACTATED RINGERS 1,000 ML IV SCH (08:32)
[2017-01-13] MEDS: ZOFRAN IV PRN (09:15)
[2017-01-13] MEDS: ROCEPHIN/NS 2 GM/100 ML 2 GM/100 ML BAG IV SCH (11:24)
--- NOTE | 2017-01-13 13:46 | Progress Note ---
Assessment and Plan low gradetemp still with temp colic will plan on removing stone sunday npo p mid sunday Subjective Date of service: 01/13/17 Principal diagnosis: urosepsis Objective - Constitutional Vitals: Vital Signs - 12hr 01/13/17 01/13/17 01/13/17 04:50 07:20 07:28 Temperature 99.2 F 100.2 F H Pulse Rate 99 H 111 H 112 H Respiratory 18 22 Rate Blood Pressure 110/68 Blood Pressure 130/85 [Left] O2 Sat by Pulse 89 90 91 Oximetry 01/13/17 01/13/17 08:38 10:00 Temperature 99.3 F Pulse Rate Respiratory Rate Blood Pressure Blood Pressure [Left] O2 Sat by Pulse 95 Oximetry General appearance: Present: mild distress - Respiratory Respiratory effort: normal Extremities: no ischemia - Labs CBC & Chem 7: 01/12/17 09:59 01/12/17 09:59
--- NOTE | 2017-01-13 21:26 | Progress Note ---
Assessment and Plan Assessment and plan: 31 years old obese female presented for severe right flank pain associated with fever and chills; found to have nephrolithiasis (stone in right distal ureter with obstructive uropathy) and underwent cystography and right retrograde pyelogram with stent placement 1. Sepsis Secondary to UTI/pyelonephritis Elevated lactic acid Cultures obtained Continue IV antibiotics, IV fluids 2. Nephrolithiasis Right distal ureter stone with obstructive uropathy Urology consulted and underwent cystoscopy/RPG with stent placement Plan for stone removal on Sunday Continue pain control medications, IV hydration, antibiotics 3. Nausea and vomiting Secondary to #1, 2 Antiemetics, IV fluids 4. Hyperglycemia Likely stress reaction Accu-Cheks and SSI 5. Elevated LFTs Trending down 6. Obesity 7. DVT prophylaxis History Interval history: Still complaining of significant pain; continues to be nauseated; running low- grade fever Hospitalist Physical - Constitutional Vitals: Temp Pulse Resp BP Pulse Ox 100.2 F H 98 H 20 133/83 96 01/13/17 16:28 01/13/17 16:28 01/13/17 16:28 01/13/17 16:28 01/13/17 20:59 General appearance: Present: mild distress, obese - EENT Eyes: Present: PERRL, EOM intact. Absent: scleral icterus, conjunctival injection - Neck Neck: Present: supple, normal ROM. Absent: masses or JVD - Respiratory Respiratory effort: normal Respiratory: bilateral: diminished (bibasilar), negative: rhonchi, wheezing - Cardiovascular Rhythm: other (tachycardic) Heart Sounds: Present: S1 & S2. Absent: systolic murmur - Extremities Extremities: no ischemia - Abdominal General gastrointestinal: soft, tender, distended, normal bowel sounds - Psychiatric Psychiatric: cooperative - Neurologic Neurologic: CNII-XII intact, no focal deficits Results - Labs CBC & Chem 7: 01/12/17 09:59 01/12/17 09:59 Labs: Laboratory Last Values WBC 12.4 K/mm3 (4.5-11.0) H 01/12/17 09:59 RBC 4.05 M/mm3 (3.65-5.03) 01/12/17 09:59 Hgb 11.4 gm/dl (10.1-14.3) 01/12/17 09:59 Hct 34.3 % (30.3-42.9) 01/12/17 09:59 MCV 85 fl (79-97) 01/12/17 09:59 MCH 28 pg (28-32) 01/12/17 09:59 MCHC 33 % (30-34) 01/12/17 09:59 RDW 15.3 % (13.2-15.2) H 01/12/17 09:59 Plt Count 91 K/mm3 (140-440) L 01/12/17 09:59 Add Manual Diff Complete 01/12/17 09:59 Total Counted 100 01/12/17 09:59 Seg Neutrophils % Community Relations Officer 01/10/17 03:11 Seg Neuts % (Manual) 88.0 % (40.0-70.0) H 01/12/17 09:59 Band Neutrophils % 11.0 % 01/12/17 09:59 Lymphocytes % (Manual) 1.0 % (13.4-35.0) L 01/12/17 09:59 Reactive Lymphs % (Man) 0 % 01/12/17 09:59 Monocytes % (Manual) 0 % (0.0-7.3) 01/12/17 09:59 Eosinophils % (Manual) 0 % (0.0-4.3) 01/12/17 09:59 Basophils % (Manual) 0 % (0.0-1.8) 01/12/17 09:59 Metamyelocytes % 0 % 01/12/17 09:59 Myelocytes % 0 % 01/12/17 09:59 Promyelocytes % 0 % 01/12/17 09:59 Blast Cells % 0 % 01/12/17 09:59 Nucleated RBC % Not Reportable 01/12/17 09:59 Seg Neutrophils # Man 10.9 K/mm3 (1.8-7.7) H 01/12/17 09:59 Band Neutrophils # 1.4 K/mm3 01/12/17 09:59 Lymphocytes # (Manual) 0.1 K/mm3 (1.2-5.4) L 01/12/17 09:59 Abs React Lymphs (Man) 0.0 K/mm3 01/12/17 09:59 Monocytes # (Manual) 0.0 K/mm3 (0.0-0.8) 01/12/17 09:59 Eosinophils # (Manual) 0.0 K/mm3 (0.0-0.4) 01/12/17 09:59 Basophils # (Manual) 0.0 K/mm3 (0.0-0.1) 01/12/17 09:59 Metamyelocytes # 0.0 K/mm3 01/12/17 09:59 Myelocytes # 0.0 K/mm3 01/12/17 09:59 Promyelocytes # 0.0 K/mm3 01/12/17 09:59 Blast Cells # 0.0 K/mm3 01/12/17 09:59 WBC Morphology Not Reportable 01/12/17 09:59 Hypersegmented Neuts Not Reportable 01/12/17 09:59 Hyposegmented Neuts Not Reportable 01/12/17 09:59 Hypogranular Neuts Not Reportable 01/12/17 09:59 Smudge Cells Not Reportable 01/12/17 09:59 Toxic Granulation Not Reportable 01/12/17 09:59 Toxic Vacuolation Not Reportable 01/12/17 09:59 Dohle Bodies 1+ 01/12/17 09:59 Pelger-Huet Anomaly Not Reportable 01/12/17 09:59 Shavon Rods Not Reportable 01/12/17 09:59 Platelet Estimate Consistent w auto 01/12/17 09:59 Clumped Platelets Not Reportable 01/12/17 09:59 Plt Clumps, EDTA Not Reportable 01/12/17 09:59 Large Platelets Not Reportable 01/12/17 09:59 Giant Platelets Not Reportable 01/12/17 09:59 Platelet Satelliting Not Reportable 01/12/17 09:59 Plt Morphology Comment Not Reportable 01/12/17 09:59 RBC Morphology Not Reportable 01/12/17 09:59 Dimorphic RBCs Not Reportable 01/12/17 09:59 Polychromasia Not Reportable 01/12/17 09:59 Hypochromasia Not Reportable 01/12/17 09:59 Poikilocytosis Not Reportable 01/12/17 09:59 Anisocytosis 1+ 01/12/17 09:59 Microcytosis Not Reportable 01/12/17 09:59 Macrocytosis Not Reportable 01/12/17 09:59 Spherocytes Not Reportable 01/12/17 09:59 Pappenheimer Bodies Not Reportable 01/12/17 09:59 Sickle Cells Not Reportable 01/12/17 09:59 Target Cells Not Reportable 01/12/17 09:59 Tear Drop Cells Not Reportable 01/12/17 09:59 Ovalocytes Not Reportable 01/12/17 09:59 Helmet Cells Not Reportable 01/12/17 09:59 [place] Bodies Not Reportable 01/12/17 09:59 [place] Rings Not Reportable 01/12/17 09:59 [place] Cells Not Reportable 01/12/17 09:59 Bite Cells Not Reportable 01/12/17 09:59 Crenated Cell Not Reportable 01/12/17 09:59 Elliptocytes Not Reportable 01/12/17 09:59 Acanthocytes (Spur) Not Reportable 01/12/17 09:59 Rouleaux Not Reportable 01/12/17 09:59 Hemoglobin C Crystals Not Reportable 01/12/17 09:59 Schistocytes Not Reportable 01/12/17 09:59 Malaria parasites Not Reportable 01/12/17 09:59 Donald Bodies Not Reportable 01/12/17 09:59 Hem Pathologist Commnt No 01/12/17 09:59 Sodium 139 mmol/L (137-145) 01/12/17 09:59 Potassium 4.0 mmol/L (3.6-5.0) 01/12/17 09:59 Chloride 105.7 mmol/L (98-107) 01/12/17 09:59 Carbon Dioxide 20 mmol/L (22-30) L 01/12/17 09:59 Anion Gap 17 mmol/L 01/12/17 09:59 BUN 14 mg/dL (7-17) 01/12/17 09:59 Creatinine 0.7 mg/dL (0.7-1.2) 01/12/17 09:59 Estimated GFR > 60 ml/min 01/12/17 09:59 BUN/Creatinine Ratio 20 % 01/12/17 09:59 Glucose 115 mg/dL (65-100) H 01/12/17 09:59 POC Glucose 97 (70-105) 01/10/17 08:17 Lactic Acid 2.60 mmol/L (0.7-2.0) H* 01/11/17 01:15 Calcium 10.2 mg/dL (8.4-10.2) 01/12/17 09:59 Magnesium 1.80 mg/dL (1.7-2.3) 01/12/17 09:59 Total Bilirubin 0.70 mg/dL (0.1-1.2) 01/12/17 09:59 AST 83 units/L (5-40) H 01/12/17 09:59 ALT 143 units/L (7-56) H 01/12/17 09:59 Alkaline Phosphatase 136 units/L (35-129) H 01/12/17 09:59 Total Protein 6.0 g/dL (6.3-8.2) L 01/12/17 09:59 Albumin 2.4 g/dL (3.9-5) L 01/12/17 09:59 Albumin/Globulin Ratio 0.7 % 01/12/17 09:59 Lipase 30 units/L (13-60) 01/10/17 03:11 Urine Color Yellow (Yellow) 01/10/17 05:00 Urine Turbidity Clear (Clear) 01/10/17 05:00 Urine pH 7.0 (5.0-7.0) 01/10/17 05:00 Ur Specific [place] 1.015 (1.003-1.030) 01/10/17 05:00 Urine Protein <15 mg/dl mg/dL (Negative) 01/10/17 05:00 Urine Glucose (UA) Neg mg/dL (Negative) 01/10/17 05:00 Urine Ketones Neg mg/dL (Negative) 01/10/17 05:00 Urine Blood Sm (Negative) 01/10/17 05:00 Urine Nitrite Neg (Negative) 01/10/17 05:00 Urine Bilirubin Neg (Negative) 01/10/17 05:00 Urine Urobilinogen < 2.0 mg/dL (<2.0) 01/10/17 05:00 Ur Leukocyte Esterase Sm (Negative) 01/10/17 05:00 Urine WBC (Auto) 81.0 /HPF (0.0-6.0) H 01/10/17 05:00 Urine RBC (Auto) 7.0 /HPF (0.0-6.0) 01/10/17 05:00 U Epithel Cells (Auto) 2.0 /HPF (0-13.0) 01/10/17 05:00 Urine HCG, Qual Negative (Negative) 01/10/17 05:00
[2017-01-14 05:12] LABS: Hematocrit 33.2 % (30.3-42.9); Hemoglobin 10.9 gm/dl (10.1-14.3); Mean Corpuscular HGB Conc 33 % (30-34); Mean Corpuscular Hemoglobin 28 pg (28-32); Mean Corpuscular Volume 84 fl (79-97); Platelet Count 124 K/mm3 (140-440); Red Blood Count 3.96 M/mm3 (3.65-5.03); Red Cell Distribution Width 15.3 % (13.2-15.2); White Blood Count 12.5 K/mm3 (4.5-11.0)
[2017-01-14 05:22] LABS: INR 1.07 (0.87-1.13)
[2017-01-14 05:34] LABS: Alanine Aminotransferase 182 units/L (7-56); Albumin 2.7 g/dL (3.9-5); Albumin/Globulin Ratio 0.9 %; Alkaline Phosphatase 169 units/L (35-129); Anion Gap 16 mmol/L; BUN/Creatinine Ratio 22; Blood Urea Nitrogen 11 mg/dL (7-17); Calcium 9.8 mg/dL (8.4-10.2); Carbon Dioxide 21 mmol/L (22-30); Chloride 100.3 mmol/L (98-107); Glucose 110 mg/dL (65-100); Potassium 3.3 mmol/L (3.6-5.0); Sodium 134 mmol/L (137-145); Total Protein 5.6 g/dL (6.3-8.2)
[2017-01-14 05:58] LABS: Basophils % (Manual) 0 % (0.0-1.8); Blastocytes % (Manual) 0 %
[2017-01-14 05:59] LABS: Anisocytosis 1+; Diff Status Complete; Platelet Estimate Consistent w Auto
--- NOTE | 2017-01-14 10:27 | Progress Note ---
Assessment and Plan Assessment and plan: 31 years old obese female presented for severe right flank pain associated with fever and chills; found to have nephrolithiasis (stone in right distal ureter with obstructive uropathy) and underwent cystography and right retrograde pyelogram with stent placement 1. Sepsis Secondary to UTI/pyelonephritis Elevated lactic acid Cultures obtained - blood cultures negative, urine cultures likely contaminated Still febrile, white count still elevated Continue IV antibiotics, IV fluids 2. Nephrolithiasis Right distal ureter stone with obstructive uropathy Urology consulted and underwent cystoscopy/RPG with stent placement Plan for stone removal on Sunday Continue pain control medications, IV hydration, antibiotics 3. Nausea and vomiting Secondary to #1, 2 Antiemetics, IV fluids 4. Hypokalemia Replete and recheck 5. Hyperglycemia Likely stress reaction Accu-Cheks and SSI 6. Elevated LFTs Slightly trended up Monitor 7. Obesity 8. DVT prophylaxis History Interval history: still c/o abd pain and nausea; low grade fever Hospitalist Physical - Constitutional Vitals: Temp Pulse Resp BP Pulse Ox 98.4 F 89 16 139/91 96 01/14/17 07:00 01/14/17 06:00 01/14/17 06:51 01/14/17 06:00 01/13/17 22:00 General appearance: Present: mild distress, obese - EENT Eyes: Present: PERRL, EOM intact - Neck Neck: Present: supple, normal ROM. Absent: masses or JVD - Respiratory Respiratory effort: normal Respiratory: bilateral: diminished, negative: rhonchi, wheezing - Cardiovascular Rhythm: regular Heart Sounds: Present: S1 & S2. Absent: systolic murmur - Extremities Extremities: no ischemia - Abdominal General gastrointestinal: soft, tender, distended, normal bowel sounds - Psychiatric Psychiatric: cooperative - Neurologic Neurologic: CNII-XII intact, no focal deficits Results - Labs CBC & Chem 7: 01/14/17 04:50 01/14/17 04:50 Labs: Laboratory Last Values WBC 12.5 K/mm3 (4.5-11.0) H 01/14/17 04:50 RBC 3.96 M/mm3 (3.65-5.03) 01/14/17 04:50 Hgb 10.9 gm/dl (10.1-14.3) 01/14/17 04:50 Hct 33.2 % (30.3-42.9) 01/14/17 04:50 MCV 84 fl (79-97) 01/14/17 04:50 MCH 28 pg (28-32) 01/14/17 04:50 MCHC 33 % (30-34) 01/14/17 04:50 RDW 15.3 % (13.2-15.2) H 01/14/17 04:50 Plt Count 124 K/mm3 (140-440) L 01/14/17 04:50 [place] % (Auto) Rope Cutter 01/14/17 04:50 Add Manual Diff Complete 01/14/17 04:50 Total Counted 100 01/14/17 04:50 Seg Neutrophils % Rope Cutter 01/10/17 03:11 Seg Neuts % (Manual) 49.0 % (40.0-70.0) 01/14/17 04:50 Band Neutrophils % 33.0 % 01/14/17 04:50 Lymphocytes % (Manual) 7.0 % (13.4-35.0) L 01/14/17 04:50 Reactive Lymphs % (Man) 0 % 01/14/17 04:50 Monocytes % (Manual) 10.0 % (0.0-7.3) H 01/14/17 04:50 Eosinophils % (Manual) 1.0 % (0.0-4.3) 01/14/17 04:50 Basophils % (Manual) 0 % (0.0-1.8) 01/14/17 04:50 Metamyelocytes % 0 % 01/14/17 04:50 Myelocytes % 0 % 01/14/17 04:50 Promyelocytes % 0 % 01/14/17 04:50 Blast Cells % 0 % 01/14/17 04:50 Nucleated RBC % Not Reportable 01/14/17 04:50 Seg Neutrophils # Man 6.1 K/mm3 (1.8-7.7) 01/14/17 04:50 Band Neutrophils # 4.1 K/mm3 01/14/17 04:50 Lymphocytes # (Manual) 0.9 K/mm3 (1.2-5.4) L 01/14/17 04:50 Abs React Lymphs (Man) 0.0 K/mm3 01/14/17 04:50 Monocytes # (Manual) 1.3 K/mm3 (0.0-0.8) H 01/14/17 04:50 Eosinophils # (Manual) 0.1 K/mm3 (0.0-0.4) 01/14/17 04:50 Basophils # (Manual) 0.0 K/mm3 (0.0-0.1) 01/14/17 04:50 Metamyelocytes # 0.0 K/mm3 01/14/17 04:50 Myelocytes # 0.0 K/mm3 01/14/17 04:50 Promyelocytes # 0.0 K/mm3 01/14/17 04:50 Blast Cells # 0.0 K/mm3 01/14/17 04:50 WBC Morphology Not Reportable 01/14/17 04:50 Hypersegmented Neuts Not Reportable 01/14/17 04:50 Hyposegmented Neuts Not Reportable 01/14/17 04:50 Hypogranular Neuts Not Reportable 01/14/17 04:50 Smudge Cells Not Reportable 01/14/17 04:50 Toxic Granulation Not Reportable 01/14/17 04:50 Toxic Vacuolation Not Reportable 01/14/17 04:50 Dohle Bodies Not Reportable 01/14/17 04:50 Pelger-Huet Anomaly Not Reportable 01/14/17 04:50 Shavon Rods Not Reportable 01/14/17 04:50 Platelet Estimate Consistent w auto 01/14/17 04:50 Clumped Platelets Not Reportable 01/14/17 04:50 Plt Clumps, EDTA Not Reportable 01/14/17 04:50 Large Platelets Not Reportable 01/14/17 04:50 Giant Platelets Not Reportable 01/14/17 04:50 Platelet Satelliting Not Reportable 01/14/17 04:50 Plt Morphology Comment Not Reportable 01/14/17 04:50 RBC Morphology Not Reportable 01/14/17 04:50 Dimorphic RBCs Not Reportable 01/14/17 04:50 Polychromasia Not Reportable 01/14/17 04:50 Hypochromasia Not Reportable 01/14/17 04:50 Poikilocytosis Not Reportable 01/14/17 04:50 Anisocytosis 1+ 01/14/17 04:50 Microcytosis Not Reportable 01/14/17 04:50 Macrocytosis Not Reportable 01/14/17 04:50 Spherocytes Not Reportable 01/14/17 04:50 Pappenheimer Bodies Not Reportable 01/14/17 04:50 Sickle Cells Not Reportable 01/14/17 04:50 Target Cells Not Reportable 01/14/17 04:50 Tear Drop Cells Not Reportable 01/14/17 04:50 Ovalocytes Not Reportable 01/14/17 04:50 Helmet Cells Not Reportable 01/14/17 04:50 Miller-[place] Bodies Not Reportable 01/14/17 04:50 [place] Rings Not Reportable 01/14/17 04:50 Jamia Cells Not Reportable 01/14/17 04:50 Bite Cells Not Reportable 01/14/17 04:50 Crenated Cell Not Reportable 01/14/17 04:50 Elliptocytes Not Reportable 01/14/17 04:50 Acanthocytes (Spur) Not Reportable 01/14/17 04:50 Rouleaux Not Reportable 01/14/17 04:50 Hemoglobin C Crystals Not Reportable 01/14/17 04:50 Schistocytes Not Reportable 01/14/17 04:50 Malaria parasites Not Reportable 01/14/17 04:50 Donald Bodies Not Reportable 01/14/17 04:50 Hem Pathologist Commnt No 01/14/17 04:50 PT 14.4 Sec. (12.2-14.9) 01/14/17 04:50 INR 1.07 (0.87-1.13) 01/14/17 04:50 Sodium 134 mmol/L (137-145) L 01/14/17 04:50 Potassium 3.3 mmol/L (3.6-5.0) L 01/14/17 04:50 Chloride 100.3 mmol/L (98-107) 01/14/17 04:50 Carbon Dioxide 21 mmol/L (22-30) L 01/14/17 04:50 Anion Gap 16 mmol/L 01/14/17 04:50 BUN 11 mg/dL (7-17) 01/14/17 04:50 Creatinine 0.5 mg/dL (0.7-1.2) L 01/14/17 04:50 Estimated GFR > 60 ml/min 01/14/17 04:50 BUN/Creatinine Ratio 22 % 01/14/17 04:50 Glucose 110 mg/dL (65-100) H 01/14/17 04:50 POC Glucose 97 (70-105) 01/10/17 08:17 Lactic Acid 2.60 mmol/L (0.7-2.0) H* 01/11/17 01:15 Calcium 9.8 mg/dL (8.4-10.2) 01/14/17 04:50 Magnesium 1.80 mg/dL (1.7-2.3) 01/12/17 09:59 Total Bilirubin 1.10 mg/dL (0.1-1.2) 01/14/17 04:50 AST 87 units/L (5-40) H 01/14/17 04:50 ALT 182 units/L (7-56) H 01/14/17 04:50 Alkaline Phosphatase 169 units/L (35-129) H 01/14/17 04:50 Total Protein 5.6 g/dL (6.3-8.2) L 01/14/17 04:50 Albumin 2.7 g/dL (3.9-5) L 01/14/17 04:50 Albumin/Globulin Ratio 0.9 % 01/14/17 04:50 Lipase 30 units/L (13-60) 01/10/17 03:11 Urine Color Yellow (Yellow) 01/10/17 05:00 Urine Turbidity Clear (Clear) 01/10/17 05:00 Urine pH 7.0 (5.0-7.0) 01/10/17 05:00 Ur Specific Millen 1.015 (1.003-1.030) 01/10/17 05:00 Urine Protein <15 mg/dl mg/dL (Negative) 01/10/17 05:00 Urine Glucose (UA) Neg mg/dL (Negative) 01/10/17 05:00 Urine Ketones Neg mg/dL (Negative) 01/10/17 05:00 Urine Blood Sm (Negative) 01/10/17 05:00 Urine Nitrite Neg (Negative) 01/10/17 05:00 Urine Bilirubin Neg (Negative) 01/10/17 05:00 Urine Urobilinogen < 2.0 mg/dL (<2.0) 01/10/17 05:00 Ur Leukocyte Esterase Sm (Negative) 01/10/17 05:00 Urine WBC (Auto) 81.0 /HPF (0.0-6.0) H 01/10/17 05:00 Urine RBC (Auto) 7.0 /HPF (0.0-6.0) 01/10/17 05:00 U Epithel Cells (Auto) 2.0 /HPF (0-13.0) 01/10/17 05:00 Urine HCG, Qual Negative (Negative) 01/10/17 05:00
[2017-01-14] MEDS: ROCEPHIN/NS 2 GM/100 ML 2 GM/100 ML BAG IV SCH (12:01)
[2017-01-14] MEDS: ZOFRAN IV PRN (23:30)
[2017-01-15] MEDS: LACTATED RINGERS 1,000 ML IV SCH ×3 (03:21→17:44)
[2017-01-15 04:57] LABS: Hematocrit 31.3 % (30.3-42.9); Hemoglobin 10.6 gm/dl (10.1-14.3); Mean Corpuscular HGB Conc 34 % (30-34); Mean Corpuscular Hemoglobin 28 pg (28-32); Mean Corpuscular Volume 84 fl (79-97); Platelet Count 173 K/mm3 (140-440); Red Blood Count 3.75 M/mm3 (3.65-5.03); Red Cell Distribution Width 15.5 % (13.2-15.2); White Blood Count 15.9 K/mm3 (4.5-11.0)
[2017-01-15 05:07] LABS: INR 1.12 (0.87-1.13)
[2017-01-15 05:19] LABS: Alanine Aminotransferase 127 units/L (7-56); Albumin 2.6 g/dL (3.9-5); Albumin/Globulin Ratio 0.9 %; Alkaline Phosphatase 157 units/L (35-129); Anion Gap 15 mmol/L; BUN/Creatinine Ratio 22; Blood Urea Nitrogen 11 mg/dL (7-17); Carbon Dioxide 23 mmol/L (22-30); Chloride 98.7 mmol/L (98-107); Glucose 98 mg/dL (65-100); Potassium 3.5 mmol/L (3.6-5.0); Sodium 133 mmol/L (137-145); Total Protein 5.6 g/dL (6.3-8.2)
[2017-01-15 05:41] LABS: Basophils % (Manual) 0 % (0.0-1.8); Blastocytes % (Manual) 0 %; Eosinophils % (Manual) 0 % (0.0-4.3)
[2017-01-15 05:42] LABS: Diff Status Complete; Platelet Estimate Consistent w Auto
--- NOTE | 2017-01-15 08:26 | Progress Note ---
Assessment and Plan still with sig pain to remove stone stent exchange Subjective Date of service: 01/15/17 Principal diagnosis: urosepsis Objective - Constitutional Vitals: Vital Signs - 12hr 01/14/17 01/14/17 01/15/17 21:53 21:54 00:15 Temperature 99.1 F Pulse Rate 99 H 102 H 98 H Respiratory 17 Rate Blood Pressure 123/75 Blood Pressure [Right] O2 Sat by Pulse 95 94 92 Oximetry 01/15/17 01/15/17 01/15/17 00:42 04:23 04:27 Temperature 99.2 F 99.0 F 99.0 F Pulse Rate 76 100 H 89 Respiratory 20 17 17 Rate Blood Pressure 120/70 Blood Pressure 115/63 120/70 [Right] O2 Sat by Pulse 94 95 Oximetry 01/15/17 07:32 Temperature 100.5 F H Pulse Rate 99 H Respiratory 16 Rate Blood Pressure Blood Pressure 123/76 [Right] O2 Sat by Pulse 94 Oximetry General appearance: Present: mild distress - Labs CBC & Chem 7: 01/15/17 04:29 01/15/17 04:29 Labs: Abnormal lab results 01/15/17 01/15/17 01/15/17 Range/Units 04:29 04:29 04:29 WBC 15.9 H (4.5-11.0) K/mm3 RDW 15.5 H (13.2-15.2) % Seg Neuts % (Manual) 72.0 H (40.0-70.0) % Lymphocytes % (Manual) 12.0 L (13.4-35.0) % Monocytes % (Manual) 12.0 H (0.0-7.3) % Seg Neutrophils # Man 11.4 H (1.8-7.7) K/mm3 Monocytes # (Manual) 1.9 H (0.0-0.8) K/mm3 PT 15.0 H (12.2-14.9) Sec. Sodium 133 L (137-145) mmol/L Potassium 3.5 L (3.6-5.0) mmol/L Creatinine 0.5 L (0.7-1.2) mg/dL ALT 127 H (7-56) units/L Alkaline Phosphatase 157 H (35-129) units/L Total Protein 5.6 L (6.3-8.2) g/dL Albumin 2.6 L (3.9-5) g/dL
--- NOTE | 2017-01-15 09:17 | Anesthesia Consultation ---
Anesthesia Consult and Med Hx Date of service: 01/15/17 - Airway Anesthetic Teeth Evaluation: Good ROM Head & Neck: Adequate Mental/Hyoid Distance: Adequate Mallampati Class: Class II Intubation Access Assessment: Probably Good - Pre-Operative Health Status ASA Pre-Surgery Classification: ASA2 Proposed Anesthetic Plan: General - Pulmonary Hx Asthma: No Hx Respiratory Symptoms: Yes (coughing) COPD: No Hx Pneumonia: No - Cardiovascular System Hx Hypertension: No - Central Nervous System Hx Seizures: No Hx Psychiatric Problems: No - Endocrine Hx Renal Disease: No Hx End Stage Renal Disease: No Hx Hypothyroidism: No Hx Hyperthyroidism: No - Hematic Hx Anemia: No Hx Sickle Cell Disease: No - Other Systems Hx Alcohol Use: Yes
--- NOTE | 2017-01-15 09:17 | Anesthesia Day of Surgery ---
Anesthesia Day of Surgery - Day of Surgery Patient Examined: Yes Patient H&P Reviewed: Yes Patient is NPO: Yes
[2017-01-15] MEDS: ROCEPHIN/NS 2 GM/100 ML 2 GM/100 ML BAG IV SCH (09:43)
[2017-01-15] MEDS ORDERED: PEPCID IV NR (10:00)
[2017-01-15] MEDS ORDERED: VERSED IV NR (10:00)
[2017-01-15] MEDS ORDERED: DILAUDID IV ONE (10:53)
[2017-01-15] MEDS ORDERED: XYLOCAINE MPF 2% ONE (11:00)
[2017-01-15] MEDS ORDERED: SUBLIMAZE ONE (11:10)
[2017-01-15] MEDS ORDERED: DIPRIVAN 10 MG/ML IV ONE (11:10)
[2017-01-15] MEDS ORDERED: ROBINUL ONE (11:13)
[2017-01-15] MEDS ORDERED: ZOFRAN ONE (11:13)
[2017-01-15] MEDS ORDERED: DECADRON ONE (11:13)
[2017-01-15] MEDS ORDERED: DILAUDID ONE (13:07)
[2017-01-15] MEDS ORDERED: LASIX ONE (13:21)
[2017-01-15] MEDS ORDERED: ZOFRAN IV PRN (13:36)
[2017-01-15] MEDS ORDERED: TORADOL IV PRN (13:36)
[2017-01-15] MEDS ORDERED: DILAUDID IV PRN (13:36)
--- NOTE | 2017-01-15 13:37 | Post Operative Note ---
Date of procedure: 01/15/17 Pre-op diagnosis: r ureteral stone Post-op diagnosis: same Findings: as above Procedure: cysto r ureteroscopy no stent Anesthesia: GETA Surgeon: DERICK ESTEBAN Estimated blood loss: none Pathology: list (stone) Specimen disposition: given to patient/family Condition: stable Disposition: PACU
--- NOTE | 2017-01-15 14:13 | Fluoroscopy Report ---
FLUOROSCOPY RETROGRADE UROGRAPHY History: Right ureteral stone. Findings: Fluoroscopy was provided by radiology during retrograde urography by urology. 7 fluoroscopic images were captured. The images demonstrate removal of a right ureteral stent and removal of a right ureteral stone. The right renal collecting system is not dilated on the final image. The left pyelogram was not performed. Please correlate with the procedural report by Dr. Garcia. Impression: Right ureteral stent removal and right ureteral stone removal.
--- NOTE | 2017-01-15 14:26 | Operative Report ---
PREOPERATIVE DIAGNOSES: Previous urosepsis, severe stent pain, and severe colicky pain. POSTOPERATIVE DIAGNOSES: Previous urosepsis, severe stent pain, and severe colicky pain. PROCEDURE: Staged ureteroscopy, post-sepsis for stone extraction. SURGEON: Felipe Garcia MD ANESTHESIA: General. FINDINGS: This is a woman, who had high spiking fever. A stent was placed last week. She could not go home. She had severe stent colic. Once her temperature is down and she felt somewhat better, although she still had severe pain. She would not go home. She now presents for ureteroscopy. She did not want a stent back in. DESCRIPTION OF PROCEDURE: The patient was brought to the operating room and placed on the operating table. Following induction of anesthesia, placed in lithotomy position, prepped and draped in usual sterile fashion. The stent was extracted and a wire coiled in the kidney. At this point, ureteroscopy showed the stone it was very low, just above the intramural ureter easily extracted with a 5-Macedonian grasper. It was then extracted intact with 1 chance and there was no edema. We injected dye, drained. We took the wire out, it drained under fluoroscopic guidance. The patient tolerated the procedure well. She did not want a stent. It was a simple procedure. We did not leave the stent, brought to recovery in stable condition. Family notified and given the stone. JOB# [id number] ASUNCION/WILLEM
--- NOTE | 2017-01-15 15:53 | Discharge Summary ---
Providers - Providers Date of Admission: 01/10/17 19:36 Date of discharge: 01/16/17 Attending physician: MARK TAYLOR Primary care physician: [facility] NURSE Hospitalization Condition: Stable Pertinent studies: Abdomen and pelvis CT on 1022217 showed calculus in the distal right ureter, 4 cm proximal to UV junction with proximal hydronephrosis and perianal stranding. Retrograde pyelogram on 01/10/2017 with right ureteric stent placement. Retrograde pyelogram on 01/15/2017 with stone and stent removal. Hospital course: 31 years old obese female presented for severe right flank pain associated with fever and chills; found to have nephrolithiasis (stone in right distal ureter with obstructive uropathy) and underwent cystography and right retrograde pyelogram with stent placement. Following the stent placement patient continue to have severe right flank pain and persistently spiking fever. She had repeat retrograde pyelogram with the stent and stone removal. Patient seemed to improve significantly following the final procedure. She remained afebrile and pain was resolved. She also maintained good urine output. She was then discharged home in stable condition. She'll follow up with the urologist in next 2 weeks, office number were given to the patient to make appointment. Discharge diagnosis and management: /Sepsis Secondary to UTI/pyelonephritis with Elevated lactic acid Cultures obtained - blood cultures negative, urine cultures likely contaminated Continued IV antibiotics, IV fluids as patient remained febrile with elevated white count Patient was afebrile at least 24 hours for discharge /Nephrolithiasis Right distal ureter stone with obstructive uropathy Urology was consulted and underwent cystoscopy/RPG with stent placement followed by stone and stent removal on 01/15/17 as patient was continued to have symptoms / Nausea and vomiting Secondary to #1, 2 Managed with Antiemetics, IV fluids /Hypokalemia cont to Replete and recheck / Hyperglycemia Likely stress reaction cont Accu-Cheks and SSI / Elevated LFTs Slightly trended up Need repeat lab in the next 2 weeks /Obesity nutrition recommendation provided /DVt Px Patient was on lovenox Microbiology 01/10/17 15:00 Peripheral/Venous Blood Culture - Final NO GROWTH AFTER 5 DAYS 01/10/17 15:00 Peripheral/Venous Blood Culture - Final NO GROWTH AFTER 5 DAYS 01/10/17 05:00 Urine,Clean Catch Urine Culture - Final Disposition: DC-01 TO HOME OR SELFCARE Time spent for discharge: 32 minutes Core Measure Documentation - Palliative Care Palliative Care/ Comfort Measures: Not Applicable - Core Measures Any of the following diagnoses?: none Exam - Physical Exam Narrative exam: GENERAL: well-developed and well-nourished lying on bed appeared to be in no discomfort. HEENT: Normocephalic. Atraumatic. No conjunctival congestion or icterus. Patient has moist mucous membranes. NECK: Supple. Trachea midline. CHEST/LUNGS: Clear to auscultated bilaterally, breathing nonlabored. No wheezes crackles or rhonchi. HEART/CARDIOVASCULAR: Regular in rate and rhythm. S1 and S2 positive. ABDOMEN: Abdomen is soft, nontender. Patient has normal bowel sounds. SKIN: There is no rash. Warm and dry. NEURO: No focal motor deficit. Follows command. MUSCULOSKELETAL: No joint effusion or tenderness. EXTRIMITY: No edema, no cyanosis or clubbing. PSYCH: Cooperative. - Constitutional Vitals: Temp Pulse Resp BP Pulse Ox 97.8 F 78 16 112/62 97 01/15/17 14:30 01/15/17 14:30 01/15/17 14:30 01/15/17 14:30 01/15/17 14:30 Plan Activity: advance as tolerated Weight Bearing Status: Non-Weight Bearing Diet: low fat, low salt Follow up with: PRIMARY CARE, [Primary Care Provider] - 3-5 Days Prescriptions: Ciprofloxacin HCl [Ciprofloxacin TAB] 500 mg PO Q12H #7 tab oxyCODONE /ACETAMINOPHEN [Percocet 5/325 mg] 1 tab PO Q6H PRN #20 tablet PRN Reason: Pain, Moderate (4-6)
[2017-01-16] MEDS: LACTATED RINGERS 1,000 ML IV SCH (05:15)
[2017-01-16] MEDS: PERCOCET 5/325 PO PRN (05:16)
--- NOTE | 2017-01-16 07:12 | Progress Note ---
Assessment and Plan /Sepsis Secondary to UTI/pyelonephritis with Elevated lactic acid Cultures obtained - blood cultures negative, urine cultures likely contaminated Still febrile, white count still elevated Continue IV antibiotics, IV fluids /Nephrolithiasis Right distal ureter stone with obstructive uropathy Urology consulted and underwent cystoscopy/RPG with stent placement on 01/10/17 s/p stone removal today as she was having persistent pain Continue pain control medications, IV hydration, antibiotics / Nausea and vomiting Secondary to #1, 2 Antiemetics, IV fluids /Hypokalemia cont to Replete and recheck / Hyperglycemia Likely stress reaction cont Accu-Cheks and SSI / Elevated LFTs Slightly trended up cont to Monitor /Obesity nutrition recommendation /DVt Px resume lovenox Disposition: Refused to go home today, eventhough she was cleared by urologist for discharge. She is nervous that she will develop pain again. Brief history: 31 years old obese female presented for severe right flank pain associated with fever and chills; found to have nephrolithiasis ( stone in right distal ureter with obstructive uropathy) and underwent cystography and right retrograde pyelogram with stent placement. Subjective Date of service: 01/15/17 Principal diagnosis: urosepsis Interval history: Pt seen and examined denies any pain S/p retrograde pylogram today with stent and stone removal wants to eat, tolerated the procedure Objective - Exam Narrative Exam: GENERAL: well-developed obese female lying on bed appeared to be in no discomfort. HEENT: Normocephalic. Atraumatic. No conjunctival congestion or icterus. Patient has moist mucous membranes. NECK: Supple. Trachea midline. CHEST/LUNGS: Clear to auscultated bilaterally, breathing nonlabored. No wheezes crackles or rhonchi. HEART/CARDIOVASCULAR: Regular in rate and rhythm. S1 and S2 positive. ABDOMEN: Abdomen is soft, nontender. Patient has normal bowel sounds. SKIN: There is no rash. Warm and dry. NEURO: No focal motor deficit. Follows command. MUSCULOSKELETAL: No joint effusion or tenderness. EXTRIMITY: No edema, no cyanosis or clubbing. PSYCH: Cooperative. - Constitutional Vitals: Vital Signs - 12hr 01/15/17 01/16/17 01/16/17 19:38 00:14 04:37 Temperature 97.9 F 97.4 F L 98.0 F Pulse Rate 75 68 65 Respiratory 16 16 20 Rate Blood Pressure 125/76 152/84 130/86 O2 Sat by Pulse 95 95 97 Oximetry - Labs CBC & Chem 7: 01/15/17 04:29 01/15/17 04:29
[2017-01-16] MEDS: ROCEPHIN/NS 2 GM/100 ML 2 GM/100 ML BAG IV SCH (10:43)
[2017-01-16 16:13] VITALS: BP 124/90
== END 2017-01-16 18:55 | disposition home or self-care (01) | DRG 854 ==
LOC: ED 02:43 → OR 16:28 → 3B-SURG 19:36
PROVIDERS: ADMIT Internal Medicine; ATTEND Internal Medicine
PROC: 0T768DZ Dilation of Right Ureter with Intraluminal Device, Via Natural or Artificial Opening Endoscopic (ICD-10-PCS; 2017-01-10)
PROC: 0TC68ZZ Extirpation of Matter from Right Ureter, Via Natural or Artificial Opening Endoscopic (ICD-10-PCS; principal; 2017-01-15)
DX: A41.9 Sepsis, unspecified organism (principal); N30.01 Acute cystitis with hematuria; N13.30 Unspecified hydronephrosis; E66.9 Obesity, unspecified; E11.65 Type 2 diabetes mellitus with hyperglycemia; E87.6 Hypokalemia
CPT/HCPCS: 36415; 74177; 74420; 80053; 81001; 81025; 82140; 82962; 83690; 83735; 85007; 85025; 85610; 87040; 87086; 94760; 96361; 96372; 96374; 96375; 99285; C1758; C1769; C2617; J0330; J0696; J1100; J1170; J1885; J1940; J2250; J2270; J2370; J2405; J2543; J2704; J2765; J3010; J3370; J7030; J7040; J7120; Q0162; Q9967

== ENCOUNTER 2017-04-24 20:41 | Emergency (ER) | payer SELFPAY ==
[2017-04-24 20:55] VITALS: BP 118/77
[2017-04-24 21:40] LABS: Basophils # (Auto) 0.1 K/mm3 (0.0-0.1); Basophils % (Auto) 0.4 % (0.0-1.8); Eosinophils # (Auto) 0.4 K/mm3 (0.0-0.4); Eosinophils % (Auto) 2.8 % (0.0-4.3); Hematocrit 38.3 % (30.3-42.9); Hemoglobin 12.6 gm/dl (10.1-14.3); Lymphocytes # (Auto) 2.4 K/mm3 (1.2-5.4); Lymphocytes % (Auto) 18.4 % (13.4-35.0); Mean Corpuscular HGB Conc 33 % (30-34); Mean Corpuscular Hemoglobin 28 pg (28-32); Mean Corpuscular Volume 85 fl (79-97); Monocytes # (Auto) 0.8 K/mm3 (0.0-0.8); Monocytes % (Auto) 5.8 % (0.0-7.3); Platelet Count 332 K/mm3 (140-440); Red Blood Count 4.53 M/mm3 (3.65-5.03); Red Cell Distribution Width 14.3 % (13.2-15.2)
[2017-04-24 22:00] LABS: Alanine Aminotransferase 33 units/L (7-56); Albumin 3.8 g/dL (3.9-5); BUN/Creatinine Ratio 24; Blood Urea Nitrogen 12 mg/dL (7-17); Calcium 10.3 mg/dL (8.4-10.2); Hemolysis Index 17
[2017-04-24 23:17] LABS: Bacteria,Urine 1+ /HPF (Negative); Bilirubin,Urine NEG (Negative); Blood,Urine NEG (Negative); Color,Urine Yellow (Yellow); Mucus,Urine FEW /HPF; Nitrite,Urine NEG (Negative); Protein,Urine <15 mg/dL mg/dL (Negative); Urobilinogen,Urine < 2.0 mg/dL (<2.0)
[2017-04-24 23:18] LABS: RBC,Urine < 1.0 /HPF (0.0-6.0)
== END 2017-04-25 02:30 | disposition left against medical advice (07) ==
LOC: ED 20:41
DX: R10.9 Unspecified abdominal pain (principal); Z53.21 Procedure and treatment not carried out due to patient leaving prior to being seen by health care provider
CPT/HCPCS: 36415; 80053; 81001; 81025; 85025

== ENCOUNTER 2018-03-29 16:27 | Emergency (ER) | payer OTHER, SELFPAY ==
[2018-03-29 16:54] VITALS: BP 103/70
[2018-03-29 17:42] LABS: HCG Qualitative,Urine Negative (Negative)
[2018-03-29 17:44] LABS: Bilirubin,Urine NEG (Negative); Blood,Urine LG (Negative); Color,Urine Red (Yellow); Mucus,Urine FEW /HPF; Urobilinogen,Urine < 2.0 mg/dL (<2.0)
[2018-03-29 17:47] LABS: RBC,Urine > 182.0 /HPF (0.0-6.0); WBC,Urine > 182.0 /HPF (0.0-6.0)
--- NOTE | 2018-03-29 21:30 | Emergency Department Report ---
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 Patient denies any flank pain. MD Complaint: dysuria Severity: moderate Quality: burning Consistency: constant Improves with: none Worsens with: urination Are you Now?: No Last Menstrual Period: 02/17/18 EDC: 11/24/18 Associated Symptoms: dysuria, hematuria - Related Data Sexually active: Yes Previous Rx's Medication Instructions Recorded Last Taken Type oxyCODONE /ACETAMINOPHEN [Percocet 1 tab PO Q6H PRN #20 tablet 01/15/17 Unknown Rx 5/325 mg] Ciprofloxacin HCl [Ciprofloxacin 500 mg PO Q12H #7 tab 01/16/17 Unknown Rx TAB] Nitrofurantoin Monohyd/M-Cryst 100 mg PO BID #20 capsule 03/29/18 Unknown Rx [Macrobid 100 mg Capsule] Phenazopyridine [Pyridium] 100 mg PO TID #6 tab 03/29/18 Unknown Rx Allergies Allergy/AdvReac Type Severity Reaction Status Date / Time No Known Allergies Allergy Verified 03/29/18 16:51 ED Review of Systems ROS: Stated complaint: POSS UTI Other details as noted in HPI Comment: All other systems reviewed and negative Genitourinary: dysuria, frequency, hematuria ED Past Medical Hx - Past Medical History Hx Hypertension: No Hx Congestive Heart Failure: No Hx Diabetes: No Hx Deep Vein Thrombosis: No Hx Renal Disease: No Hx Sickle Cell Disease: No Hx Seizures: No Hx Kidney Stones: Yes Hx Asthma: No Hx COPD: No Hx HIV: No - Surgical History Hx Cholecystectomy: Yes Additional Surgical History: x2, kidney stone removed - Social History Smoking Status: Never Smoker Substance Use Type: None - Medications Home Medications: Home Medications Medication Instructions Recorded Confirmed Last Taken Type oxyCODONE /ACETAMINOPHEN [Percocet 1 tab PO Q6H PRN #20 tablet 01/15/17 Unknown Rx 5/325 mg] Ciprofloxacin HCl [Ciprofloxacin 500 mg PO Q12H #7 tab 01/16/17 Unknown Rx TAB] Nitrofurantoin Monohyd/M-Cryst 100 mg PO BID #20 capsule 03/29/18 Unknown Rx [Macrobid 100 mg Capsule] Phenazopyridine [Pyridium] 100 mg PO TID #6 tab 03/29/18 Unknown Rx ED Physical Exam - General Limitations: Language Barrier General appearance: alert, in no apparent distress - Head Head exam: Present: atraumatic, normocephalic - Eye Eye exam: Present: EOMI - ENT ENT exam: Present: mucous membranes moist - Respiratory Respiratory exam: Present: normal lung sounds bilaterally. Absent: respiratory distress - Cardiovascular Cardiovascular Exam: Present: regular rate, normal rhythm. Absent: systolic murmur, diastolic murmur, rubs, gallop - GI/Abdominal GI/Abdominal exam: Present: soft, normal bowel sounds - Neurological Exam Neurological exam: Present: alert, oriented X3 - Psychiatric Psychiatric exam: Present: normal affect, normal mood - Skin Skin exam: Present: warm, dry, intact, normal color. Absent: rash ED Course Vital Signs 03/29/18 16:51 Temperature 97.7 F Pulse Rate 90 Respiratory 18 Rate Blood Pressure 103/70 O2 Sat by Pulse 99 Oximetry ED Medical Decision Making - Medical Decision Making Patient has been evaluated by this provider in fast track. Patient's urinalysis shows that she has a bladder infection with hematuria. Please patient on Macrobid 100 mg by mouth twice a day and Pyridium 100 mg 3 times a day 2 days. Discussed the patient to increase her water intake. Patient reports that she has an appointment with her php web developer on 04/01/2018. Critical care attestation.: If time is entered above; I have spent that time in minutes in the direct care of this critically ill patient, excluding procedure time. ED Disposition Clinical Impression: Acute cystitis with hematuria Disposition: - TO HOME OR SELFCARE Is pt being admited?: No Does the pt Need Aspirin: No Condition: Stable Instructions: Urinary Tract Infection in Women (ED) Additional Instructions: Please complete antibiotics as prescribed. Take Pyridium as needed for pain with urination. Please increase her fluid intake of water by 3 L a day. Follow up with her primary care provider or here kidney specialist if symptoms persist or gets worse. Por favor complete los antibiticos segn lo prescrito. [place] Pyridium segn sea necesario para el dolor con la miccin. Por favor, aumente samayoa consumo de lquidos de agua en 3 litros al da. Clara un seguimiento con samayoa proveedor de atencin primaria o aqu con un especialista en riones si los sntomas persisten o empeoran. Prescriptions: Nitrofurantoin Monohyd/M-Cryst [Macrobid 100 mg Capsule] 100 mg PO BID #20 capsule Phenazopyridine [Pyridium] 100 mg PO TID #6 tab Referrals: DERICK ESTEBAN MD [Staff Physician] - 3-5 Days Forms: Work/School Release Form(ED)
== END 2018-03-29 22:14 | disposition home or self-care (01) ==
LOC: ED 16:27
DX: N30.01 Acute cystitis with hematuria (principal); Z87.442 Personal history of urinary calculi; Z90.49 Acquired absence of other specified parts of digestive tract
CPT/HCPCS: 81001; 81025; 87086; 99283

== ENCOUNTER 2018-10-01 11:18 | Emergency (ER) | payer SELFPAY ==
[2018-10-01 11:31] VITALS: BP 109/70
--- NOTE | 2018-10-01 11:31 | Event Note ---
ED Screening Note ED Screening Note: co abd pain- bilateral sides; not midline no vag bleed or dc pos vomiting no dysuria no cig/etoh/drugs lmp 08/04 4csec This initial assessment/diagnostic orders/clinical plan/treatment(s) is/are subject to change based on patients health status, clinical progression and re- assessment by fellow clinical providers in the ED. Further treatment and workup at subsequent clinical providers discretion. Patient/guardian urged not to elope from the ED as their condition may be serious if not clinically assessed and managed. Initial orders include: ro urine/blood
[2018-10-01 12:11] LABS: Bacteria,Urine 1+ /HPF (Negative); Bilirubin,Urine NEG (Negative); Blood,Urine MOD (Negative); Color,Urine Straw (Yellow); Mucus,Urine FEW /HPF; Protein,Urine <15 mg/dL mg/dL (Negative); Urobilinogen,Urine < 2.0 mg/dL (<2.0)
[2018-10-01 12:14] LABS: HCG Qualitative,Urine Negative (Negative)
[2018-10-01 12:34] LABS: Hematocrit 38.4 % (30.3-42.9); Hemoglobin 13.1 gm/dl (10.1-14.3); Mean Corpuscular HGB Conc 34 % (30-34); Mean Corpuscular Volume 85 fl (79-97); Platelet Count 347 K/mm3 (140-440); Red Blood Count 4.54 M/mm3 (3.65-5.03); Red Cell Distribution Width 14.2 % (13.2-15.2)
[2018-10-01 12:49] LABS: BUN/Creatinine Ratio 16; Blood Urea Nitrogen 11 mg/dL (7-17); Calcium 11.6 mg/dL (8.4-10.2); Hemolysis Index 9
--- NOTE | 2018-10-01 14:30 | Emergency Department Report ---
ED Abdominal Pain HPI - General Chief Complaint: Abdominal Pain Stated Complaint: ABD PAIN/VOMITTING Time Seen by Provider: 10/01/18 11:29 Source: patient Mode of arrival: Wheelchair Limitations: Language Barrier - History of Present Illness Initial Comments: 33-year-old female presents to ED with lower abdominal pain since this morning. Patient states pain is located in his suprapubic region, nonradiating. He reports associated nausea and vomiting. Patient denies fever, dysuria, hematuria, vaginal bleeding or discharge. Patient reported last menstrual period was 2 months ago. Took a home test which was negative. Patient reports history of irregular menstrual periods. MD Complaint: abdominal pain -: This morning Location: suprapubic Radiation: none Migration to: no migration Severity: moderate Quality: cramping Consistency: constant Improves With: nothing Worsens With: nothing Associated Symptoms: nausea, vomiting. denies: fever, dysuria, hematuria - Related Data Previous Rx's Medication Instructions Recorded Last Taken Type oxyCODONE /ACETAMINOPHEN [Percocet 1 tab PO Q6H PRN #20 tablet 01/15/17 04/09/18 Rx 5/325 mg] Phenazopyridine [Pyridium] 200 mg PO TID #6 tab 10/01/18 Unknown Rx Sulfamethoxazole/Trimethoprim 1 each PO BID #6 tablet 10/01/18 Unknown Rx [Bactrim DS TAB] Allergies Allergy/AdvReac Type Severity Reaction Status Date / Time No Known Allergies Allergy Verified 10/01/18 11:19 ED Review of Systems ROS: Stated complaint: ABD PAIN/VOMITTING Other details as noted in HPI Comment: All other systems reviewed and negative Constitutional: denies: chills, fever Gastrointestinal: abdominal pain, nausea, vomiting. denies: diarrhea Genitourinary: abnormal menses. denies: dysuria, frequency, hematuria, discharge ED Past Medical Hx - Past Medical History Hx Hypertension: No Hx Congestive Heart Failure: No Hx Diabetes: No Hx Deep Vein Thrombosis: No Hx Renal Disease: No Hx Sickle Cell Disease: No Hx Seizures: No Hx Kidney Stones: Yes Hx Asthma: No Hx COPD: No Hx HIV: No - Surgical History Hx Cholecystectomy: Yes Additional Surgical History: x2, kidney stone removed - Social History Smoking Status: Never Smoker Substance Use Type: None - Medications Home Medications: Home Medications Medication Instructions Recorded Confirmed Last Taken Type oxyCODONE /ACETAMINOPHEN [Percocet 1 tab PO Q6H PRN #20 tablet 01/15/17 04/11/18 04/09/18 Rx 5/325 mg] Phenazopyridine [Pyridium] 200 mg PO TID #6 tab 10/01/18 Unknown Rx Sulfamethoxazole/Trimethoprim 1 each PO BID #6 tablet 10/01/18 Unknown Rx [Bactrim DS TAB] ED Physical Exam - General Limitations: Language Barrier General appearance: alert, in no apparent distress - Head Head exam: Present: atraumatic, normocephalic - Eye Eye exam: Present: normal appearance - ENT ENT exam: Present: mucous membranes moist - Neck Neck exam: Present: normal inspection - Respiratory Respiratory exam: Present: normal lung sounds bilaterally. Absent: respiratory distress - Cardiovascular Cardiovascular Exam: Present: regular rate, normal rhythm - GI/Abdominal GI/Abdominal exam: Present: soft, tenderness (suprapubic). Absent: distended - Extremities Exam Extremities exam: Present: normal inspection - Neurological Exam Neurological exam: Present: alert, oriented X3 - Psychiatric Psychiatric exam: Present: normal affect, normal mood - Skin Skin exam: Present: warm, dry, intact, normal color ED Course Vital Signs 10/01/18 11:29 Temperature 98.5 F Pulse Rate 79 Respiratory 19 Rate Blood Pressure 109/70 [Left] O2 Sat by Pulse 99 Oximetry ED Medical Decision Making - Lab Data Result diagrams: 10/01/18 12:18 10/01/18 12:18 Critical care attestation.: If time is entered above; I have spent that time in minutes in the direct care of this critically ill patient, excluding procedure time. ED Disposition Clinical Impression: UTI (urinary tract infection) Disposition: - TO HOME OR SELFCARE Is pt being admited?: No Condition: Stable Instructions: Urinary Tract Infection in Women (ED) Prescriptions: Sulfamethoxazole/Trimethoprim [Bactrim DS TAB] 1 each PO BID #6 tablet Phenazopyridine [Pyridium] 200 mg PO TID #6 tab Referrals: BRADLEY GARCIA MD [Primary Care Provider] - 3-5 Days Time of Disposition: 14:30 Print Language: CROATIAN
== END 2018-10-01 14:55 | disposition home or self-care (01) ==
LOC: ED 11:18
DX: N39.0 Urinary tract infection, site not specified (principal)
CPT/HCPCS: 36415; 80048; 81001; 81025; 84702; 85027; 87086

== ENCOUNTER 2018-12-14 20:39 | Observation (INO) | payer SELFPAY ==
[2018-12-14] MEDS ORDERED: ONDANSETRON 4 MG ODT TAB PO ONE (21:08)
--- NOTE | 2018-12-14 21:09 | Event Note ---
ED Screening Note Date of service: 12/14/18 Time: 21:06 ED Screening Note: This is a 33 y.o. F. that presents to the ER with N/V and lower abdominal pain that started at 1900 tonight. LMP 11/18/2018 This initial assessment/diagnostic orders/clinical plan/treatment(s) is/are subject to change based on patients health status, clinical progression and re- assessment by fellow clinical providers in the ED. Further treatment and workup at subsequent clinical providers discretion. Patient/guardian urged not to elope from the ED as their condition may be serious if not clinically assessed and managed. Initial orders include: Labs and CT of abdomen
[2018-12-14] MEDS ORDERED: ONDANSETRON 4 MG ODT TAB ONE (21:11)
[2018-12-14 21:53] LABS: Bacteria,Urine 1+ /HPF (Negative); Bilirubin,Urine NEG (Negative); Blood,Urine MOD (Negative); Color,Urine Amber (Yellow); Mucus,Urine FEW /HPF; Urobilinogen,Urine < 2.0 mg/dL (<2.0)
[2018-12-14 22:01] LABS: Basophils # (Auto) 0.1 K/mm3 (0.0-0.1); Basophils % (Auto) 0.5 % (0.0-1.8); Eosinophils # (Auto) 0.3 K/mm3 (0.0-0.4); Eosinophils % (Auto) 2.1 % (0.0-4.3); Hematocrit 38.7 % (30.3-42.9); Hemoglobin 12.7 gm/dl (10.1-14.3); Lymphocytes % (Auto) 18.4 % (13.4-35.0); Mean Corpuscular HGB Conc 33 % (30-34); Mean Corpuscular Volume 85 fl (79-97); Monocytes # (Auto) 1.1 K/mm3 (0.0-0.8); Monocytes % (Auto) 6.8 % (0.0-7.3); Platelet Count 390 K/mm3 (140-440); Red Blood Count 4.56 M/mm3 (3.65-5.03); Red Cell Distribution Width 13.9 % (13.2-15.2)
[2018-12-14 22:32] LABS: Alanine Aminotransferase 30 units/L (7-56); Albumin 4.3 g/dL (3.9-5); BUN/Creatinine Ratio 20; Blood Urea Nitrogen 14 mg/dL (7-17); Hemolysis Index 2
[2018-12-14] MEDS ORDERED: SODIUM CHLORIDE 0.9% 1000 ML 1,000 ML IV ONE (23:12)
[2018-12-14 23:24] LABS: Bacteria,Urine 4+ /HPF (Negative); Bilirubin,Urine NEG (Negative); Blood,Urine MOD (Negative); Color,Urine Yellow (Yellow); Mucus,Urine FEW /HPF; Urobilinogen,Urine < 2.0 mg/dL (<2.0)
[2018-12-14 23:28] LABS: WBC,Urine > 182.0 /HPF (0.0-6.0)
[2018-12-14 23:29] LABS: HCG Qualitative,Urine Negative (Negative)
--- NOTE | 2018-12-15 00:27 | Cat Scan Report ---
CT ABDOMEN AND PELVIS WITH CONTRAST INDICATION / CLINICAL INFORMATION: lower abdominal pain. TECHNIQUE: Axial CT images were obtained through the abdomen and pelvis after IV contrast. All CT scans at this location are performed using CT dose reduction for ALARA by means of automated exposure control. COMPARISON: CT dated 01/10/17 FINDINGS: LOWER CHEST: No significant abnormality. LIVER: Liver is enlarged and hypodense characteristic of fatty infiltration. No change. GALLBLADDER: Surgically absent. BILE DUCTS: No significant abnormality. PANCREAS: No significant abnormality. SPLEEN: No significant abnormality. ADRENALS: No significant abnormality. RIGHT KIDNEY and URETER: Mild right renal scarring has developed since the prior study. No acute find ings. LEFT KIDNEY and URETER: 4 mm stone in the mid to distal left ureter as seen on axial series 2 image 1 58. Mild/moderate left hydroureteronephrosis with mild ureteral wall thickening and enhancement. Slig ht decreased enhancement of the left kidney indicating mild obstructive uropathy. STOMACH and SMALL BOWEL: No significant abnormality. COLON: No significant abnormality. APPENDIX: No significant abnormality. PERITONEUM: Trace free fluid in the pelvis. No free air. No fluid collection. LYMPH NODES: No significant adenopathy. AORTA and ARTERIES: No significant abnormality. IVC and VEINS: No significant abnormality. URINARY BLADDER: No significant abnormality. REPRODUCTIVE ORGANS: Small cyst in the right ovary. ADDITIONAL FINDINGS: None. SKELETAL SYSTEM: No significant abnormality. IMPRESSION: 1. 4 mm stone in the mid to distal left ureter with mild to moderate left hydroureteronephrosis. 2. Small right ovarian cyst with trace free fluid in the pelvis. Signer Name: Stephen Coker MD Signed: 12/15/2018 12:23 AM Workstation Name: [id number]
[2018-12-15] MEDS ORDERED: KETOROLAC 30 MG/1 ML INJ IV ONE (00:48)
[2018-12-15] MEDS ORDERED: SODIUM CHLORIDE 0.9% 1000 ML 1,000 ML IV ONE (00:48)
--- NOTE | 2018-12-15 00:56 | Emergency Department Report ---
ED Abdominal Pain HPI - General Chief Complaint: Abdominal Pain Stated Complaint: EMESIS Time Seen by Provider: 12/14/18 21:05 Source: patient, family Mode of arrival: Ambulatory Limitations: Language Barrier - History of Present Illness Initial Comments: 33-year-old female presents to the emergency room complaining of nausea and right side flank pain and suprapubic pain. She reported started today. Her last menstrual period was 11/18/2018. She is 4 para 4. Patient denies he fevers or chills. She reports her pain is a 10 out of 10. She currently takes no medications on a daily basis she is allergic to morphine as it makes he r blood pressure elevate and she starts to shake. Patient reports she's been sweating and having difficulty in breathing. MD Complaint: abdominal pain, flank pain Location: R flank Radiation: suprapubic Severity: severe Severity scale (0 -10): 10 Quality: stabbing, sharp Improves With: nothing Worsens With: movement Associated Symptoms: nausea, vomiting. denies: diarrhea, fever - Related Data LMP Date: 11/18/18 Home Medications Medication Instructions Recorded Confirmed Last Taken No Known Home Medications [No 12/15/18 12/15/18 Unknown Reported Home Medications] Allergies Allergy/AdvReac Type Severity Reaction Status Date / Time morphine Allergy Severe Anaphylaxis Verified 12/15/18 01:02 ED Review of Systems ROS: Stated complaint: EMESIS Other details as noted in HPI ED Past Medical Hx - Past Medical History Previous Medical History?: Yes Hx Hypertension: No Hx Congestive Heart Failure: No Hx Diabetes: No Hx Deep Vein Thrombosis: No Hx Renal Disease: No Hx Sickle Cell Disease: No Hx Seizures: No Hx Kidney Stones: Yes Hx Asthma: No Hx COPD: No Hx HIV: No - Surgical History Past Surgical History?: Yes Hx Cholecystectomy: Yes Additional Surgical History: x2, kidney stone removed - Social History Smoking Status: Never Smoker Substance Use Type: None - Medications Home Medications: Home Medications Medication Instructions Recorded Confirmed Last Taken Type No Known Home Medications [No 12/15/18 12/15/18 Unknown History Reported Home Medications] ED Physical Exam - General Limitations: Language Barrier General appearance: alert, in no apparent distress - Head Head exam: Present: atraumatic, normocephalic - Eye Eye exam: Present: normal appearance - ENT ENT exam: Present: mucous membranes moist - Neck Neck exam: Present: normal inspection - Respiratory Respiratory exam: Present: normal lung sounds bilaterally. Absent: respiratory distress - Cardiovascular Cardiovascular Exam: Present: regular rate, normal rhythm. Absent: systolic murmur, diastolic murmur, rubs, gallop - GI/Abdominal GI/Abdominal exam: Present: soft, tenderness (suprapubic). Absent: distended - Extremities Exam Extremities exam: Present: normal inspection - Back Exam Back exam: Present: normal inspection, full ROM. Absent: CVA tenderness (R), CVA tenderness (L) - Neurological Exam Neurological exam: Present: alert, oriented X3 - Psychiatric Psychiatric exam: Present: normal affect, normal mood - Skin Skin exam: Present: warm, dry, intact, normal color. Absent: rash ED Course Vital Signs 12/14/18 12/15/18 12/15/18 20:43 01:02 01:51 Temperature 97.9 F 98.1 F Pulse Rate 90 66 Respiratory 18 16 17 Rate Blood Pressure 124/85 Blood Pressure 116/60 [Left] O2 Sat by Pulse 98 98 Oximetry 12/15/18 03:00 Temperature 98.1 F Pulse Rate 69 Respiratory 18 Rate Blood Pressure Blood Pressure 119/62 [Left] O2 Sat by Pulse 99 Oximetry ED Medical Decision Making - Lab Data Result diagrams: 12/14/18 21:18 12/14/18 21:18 Critical care attestation.: If time is entered above; I have spent that time in minutes in the direct care of this critically ill patient, excluding procedure time. ED Disposition Clinical Impression: Right ureteral calculus Abdominal pain Qualifiers: Abdominal location: right lower quadrant Qualified Code(s): R10.31 - Right lower quadrant pain Disposition: - OP ADMIT IP TO THIS HOSP Is pt being admited?: Yes Does the pt Need Aspirin: Yes Condition: Stable
[2018-12-15] MEDS ORDERED: METOCLOPRAMIDE 10 MG/2 ML INJ IV PRN (01:19)
[2018-12-15] MEDS ORDERED: HYDROcodone/ACETAMINOPHEN 5-325 MG TAB PO PRN (01:19)
[2018-12-15] MEDS ORDERED: ACETAMINOPHEN 325 MG TAB PO PRN (01:19)
[2018-12-15] MEDS ORDERED: HYDROmorphone 1 MG/1 ML INJ IV PRN (01:19)
[2018-12-15] MEDS ORDERED: ONDANSETRON 4 MG/2 ML INJ IV PRN (01:19)
--- NOTE | 2018-12-15 01:29 | History and Physical Report ---
<KELVIN LLOYD - Last Filed: 12/15/18 02:29> History of Present Illness Date of examination: 12/15/18 Date of admission: 12/15/2018 Chief complaint: Nausea, right side flank pain, and suprapubic pain History of present illness: 33-year-old female with history of kidney stone and urinary tract infection who presents [facility] ED with complaints of nausea, vomiting, suprapubic pain and right sided flank pain. States that earlier today she began having nausea fol followed by emesis, as the day she developed suprapubic pain and right-sided flank pain. The pain is constant and described as sharp. She rates her pain 10/10. The pain is relieved with pain meds. Additionally she complains of shortness of breath related to her pain. Review of medical records shows patient was seen ED on 10/01/18 and treated for UTI with Bactrim and Pyridium. She states that she completed full course of antibiotics. Denies: fever, dysuria, or hematuria Past History Past Medical History: other (UTI 10/01/18, kidney stone) Past Surgical History: (x2, kidney stone removed) Social history: lives with family Family history: no significant family history Medications and Allergies Allergies Allergy/AdvReac Type Severity Reaction Status Date / Time morphine Allergy Severe Anaphylaxis Verified 12/15/18 01:02 Home Medications Medication Instructions Recorded Confirmed Last Taken Type No Known Home Medications [No 12/15/18 12/15/18 Unknown History Reported Home Medications] Active Meds: Active Medications Sodium Chloride (Nacl 0.9% 1000 Ml) 1,000 mls @ 999 mls/hr IV BOLUS ONE Stop: 12/15/18 01:48 Last Admin: 12/15/18 01:18 Dose: 999 mls/hr Documented by: Review of Systems All systems: negative Gastrointestinal: nausea, vomiting Genitourinary Female: pelvic pain, flank pain Exam - Physical Exam Narrative exam: Physical exam General appearance: Present: No acute distress, alert and oriented 3, well developed, pleasant, adult female - EENT Eyes: Present: PERRL, EOM intact, ENT: hearing intact, normal dentition - Neck Neck: Present: supple, normal ROM - Respiratory Respiratory effort: Non-labored Respiratory: CTA - Cardiovascular Heart rate: 95 (bpm) Rhythm: SR Heart Sounds: Present: S1, S2 - Extremities Extremities: no ischemia, pulses intact - Peripheral Assessment Peripheral Pulses: within normal limits - Abdominal General gastrointestinal: soft, non-tender, normal bowel sounds - Integumentary Integumentary: Present: warm, dry, - Musculoskeletal Musculoskeletal: Able to move all extremities, normal gait -Neurological Neurological: CN II-XII grossly intact - Psychiatric Psychiatric: cooperative - Constitutional Vitals: Temp Pulse Resp BP Pulse Ox 97.9 F 90 16 124/85 98 12/14/18 20:43 12/14/18 20:43 12/15/18 01:02 12/14/18 20:43 12/14/18 20:43 Results - Labs CBC & Chem 7: 12/14/18 21:18 12/14/18 21:18 Labs: Laboratory Last Values WBC 16.1 K/mm3 (4.5-11.0) H 12/14/18 21:18 RBC 4.56 M/mm3 (3.65-5.03) 12/14/18 21:18 Hgb 12.7 gm/dl (10.1-14.3) 12/14/18 21:18 Hct 38.7 % (30.3-42.9) 12/14/18 21:18 MCV 85 fl (79-97) 12/14/18 21:18 MCH 28 pg (28-32) 12/14/18 21:18 MCHC 33 % (30-34) 12/14/18 21:18 RDW 13.9 % (13.2-15.2) 12/14/18 21:18 Plt Count 390 K/mm3 (140-440) 12/14/18 21:18 Lymph % (Auto) 18.4 % (13.4-35.0) 12/14/18 21:18 [place] % (Auto) 6.8 % (0.0-7.3) 12/14/18 21:18 Eos % (Auto) 2.1 % (0.0-4.3) 12/14/18 21:18 Baso % (Auto) 0.5 % (0.0-1.8) 12/14/18 21:18 Lymph # 3.0 K/mm3 (1.2-5.4) 12/14/18 21:18 [place] # 1.1 K/mm3 (0.0-0.8) H 12/14/18 21:18 Eos # 0.3 K/mm3 (0.0-0.4) 12/14/18 21:18 Baso # 0.1 K/mm3 (0.0-0.1) 12/14/18 21:18 Seg Neutrophils % 72.2 % (40.0-70.0) H 12/14/18 21:18 Seg Neutrophils # 11.6 K/mm3 (1.8-7.7) H 12/14/18 21:18 Sodium 134 mmol/L (137-145) L 12/14/18 21:18 Potassium 4.0 mmol/L (3.6-5.0) 12/14/18 21:18 Chloride 97.6 mmol/L (98-107) L 12/14/18 21:18 Carbon Dioxide 23 mmol/L (22-30) 12/14/18 21:18 17 mmol/L 12/14/18 21:18 BUN 14 mg/dL (7-17) 12/14/18 21:18 0.7 mg/dL (0.7-1.2) 12/14/18 21:18 Estimated GFR > 60 ml/min 12/14/18 21:18 20 % 12/14/18 21:18 Glucose 97 mg/dL (65-100) 12/14/18 21:18 Calcium 12.0 mg/dL (8.4-10.2) H 12/14/18 21:18 < 0.20 mg/dL (0.1-1.2) 12/14/18 21:18 AST 21 units/L (5-40) 12/14/18 21:18 ALT 30 units/L (7-56) 12/14/18 21:18 130 units/L (35-129) H 12/14/18 21:18 8.4 g/dL (6.3-8.2) H 12/14/18 21:18 4.3 g/dL (3.9-5) 12/14/18 21:18 1.0 % 12/14/18 21:18 49 units/L (13-60) 12/14/18 21:18 HCG, Qual Negative (Negative) 12/14/18 21:18 PTH Intact 167.2 pg/mL (15-65) H 12/14/18 23:37 Denisse (Yellow) 12/14/18 Unknown Yellow (Yellow) 12/14/18 Unknown Cloudy (Clear) 12/14/18 Unknown Slightly-cloudy (Clear) 12/14/18 Unknown 5.0 (5.0-7.0) 12/14/18 Unknown 5.0 (5.0-7.0) 12/14/18 Unknown Ur Specific [place] 1.014 (1.003-1.030) 12/14/18 Unknown Ur Specific [place] 1.024 (1.003-1.030) 12/14/18 Unknown 30 mg/dl mg/dL (Negative) 12/14/18 Unknown 100 mg/dl mg/dL (Negative) 12/14/18 Unknown 50 mg/dL (Negative) 12/14/18 Unknown Neg mg/dL (Negative) 12/14/18 Unknown Neg mg/dL (Negative) 12/14/18 Unknown Neg mg/dL (Negative) 12/14/18 Unknown Mod (Negative) 12/14/18 Unknown Mod (Negative) 12/14/18 Unknown Neg (Negative) 12/14/18 Unknown Neg (Negative) 12/14/18 Unknown Neg (Negative) 12/14/18 Unknown Neg (Negative) 12/14/18 Unknown < 2.0 mg/dL (<2.0) 12/14/18 Unknown < 2.0 mg/dL (<2.0) 12/14/18 Unknown Ur Leukocyte Esterase Lg (Negative) 12/14/18 Unknown Ur Leukocyte Esterase Neg (Negative) 12/14/18 Unknown 3.0 /HPF (0.0-6.0) 12/14/18 Unknown > 182.0 /HPF (0.0-6.0) H 12/14/18 Unknown 21.0 /HPF (0.0-6.0) 12/14/18 Unknown 75.0 /HPF (0.0-6.0) 12/14/18 Unknown U Epithel Cells (Auto) 2.0 /HPF (0-13.0) 12/14/18 Unknown U Epithel Cells (Auto) < 1.0 /HPF (0-13.0) 12/14/18 Unknown 1+ /HPF (Negative) 12/14/18 Unknown 4+ /HPF (Negative) 12/14/18 Unknown Few /HPF 12/14/18 Unknown Few /HPF 12/14/18 Unknown Urine HCG, Qual Negative (Negative) 12/14/18 Unknown - Imaging and Cardiology Imaging and Cardiology: CT Abd/Pelvis: FINDINGS: LOWER CHEST: No significant abnormality. LIVER: Liver is enlarged and hypodense characteristic of fatty infiltration. No change. GALLBLADDER: Surgically absent. BILE DUCTS: No significant abnormality. PANCREAS: No significant abnormality. SPLEEN: No significant abnormality. ADRENALS: No significant abnormality. RIGHT KIDNEY and URETER: Mild right renal scarring has developed since the prior study. No acute findings. LEFT KIDNEY and URETER: 4 mm stone in the mid to distal left ureter as seen on axial series 2 [id number]. Mild/moderate left hydroureteronephrosis with mild ureteral wall thickening and enhancement. Slight decreased enhancement of the left kidney indicating mild obstructive uropathy. STOMACH and SMALL BOWEL: No significant abnormality. COLON: No significant abnormality. APPENDIX: No significant abnormality. PERITONEUM: Trace free fluid in the pelvis. No free air. No fluid collection. LYMPH NODES: No significant adenopathy. AORTA and ARTERIES: No significant abnormality. IVC and VEINS: No significant abnormality. URINARY BLADDER: No significant abnormality. REPRODUCTIVE ORGANS: Small cyst in the right ovary. ADDITIONAL FINDINGS: None. SKELETAL SYSTEM: No significant abnormality. IMPRESSION: 1. 4 mm stone in the mid to distal left ureter with mild to moderate left hydroureteronephrosis. 2. Small right ovarian cyst with trace free fluid in the pelvis. Assessment and Plan Assessment and plan: 33-year-old female with history of kidney stone and urinary tract infection who presents [facility] ED with complaints of nausea, vomiting, suprapubic pain and right sided flank pain. UTI -Previously diagnosed and treated with by mouth antibiotics for UTI on 10/01/18 -Urine WBC >182 -Urine culture pending -Start on IV Abx Left ureteral stone -CT abdomen and pelvis revealed 4 mm left ureter stone with mild to moderate left hydroureteronephrosis -Hydrate with IVF -Continue supportive care Acute abdominal pain -Likely multifactorial to UTI and left ureter stone -Continue supportive care -Receiving IVF -Clear diet Right ovarian cyst -CT abdomen pelvis revealed incidental finding of Small right ovarian cyst with trace free fluid in the pelvis -Will require outpatient follow up with CAREER INFORMATION SPECIALIST Hypercalcemia -PTH elevated at 167.2 -Outpatient follow-up with assistant coach DVT PPX -on Lovenox Advance Directives: No VTE prophylaxis?: Chemical Plan of care discussed with patient/family: Yes <SHERINEHAILEE CUEVA - Last Filed: 12/15/18 22:26> History of Present Illness Date of admission: 12/15/18 01:19 Medications and Allergies Active Meds: Active Medications Acetaminophen (Tylenol) 650 mg PO Q4H PRN PRN Reason: Pain MILD(1-3)/Fever >100.5/POTTS Acetaminophen/Hydrocodone Bitart ([place] 5/325) 2 each PO Q6H PRN PRN Reason: Pain, Moderate (4-6) Docusate Sodium (Colace) 100 mg PO BID [facility] Last Admin: 12/15/18 21:16 Dose: 100 mg Documented by: Enoxaparin Sodium (Lovenox) 40 mg SUB-Q QDAY [facility] Last Admin: 12/15/18 09:58 Dose: 40 mg Documented by: Hydromorphone HCl (Dilaudid) 0.5 mg IV Q3H PRN PRN Reason: Pain , Severe (7-10) Sodium Chloride (Nacl 0.9% 1000 Ml) 1,000 mls @ 125 mls/hr IV DIRECT [facility] Last Admin: 12/15/18 21:16 Dose: 125 mls/hr Documented by: Ceftriaxone Sodium (Rocephin/Ns 1 Gm/50 Ml) 1 gm in 50 mls @ 100 mls/hr IV Q24 HR [facility]; Protocol Last Admin: 12/15/18 09:58 Dose: 100 mls/hr Documented by: Metoclopramide HCl (Reglan) 10 mg IV Q6H PRN PRN Reason: Nausea And Vomiting Ondansetron HCl (Zofran) 4 mg IV Q4H PRN PRN Reason: Nausea And Vomiting Sodium Chloride (Sodium Chloride Flush Syringe 10 Ml) 10 ml IV BID [facility] Last Admin: 12/15/18 21:17 Dose: 10 ml Documented by: Sodium Chloride (Sodium Chloride Flush Syringe 10 Ml) 10 ml IV PRN PRN PRN Reason: LINE FLUSH Exam - Constitutional Vitals: Temp Pulse Resp BP Pulse Ox 98.6 F 79 18 123/70 98 12/15/18 17:53 12/15/18 17:53 12/15/18 17:53 12/15/18 17:53 12/15/18 17:53 Results - Labs CBC & Chem 7: 12/15/18 12:51 12/15/18 12:51 Labs: Laboratory Last Values WBC 9.8 K/mm3 (4.5-11.0) 12/15/18 12:51 RBC 4.15 M/mm3 (3.65-5.03) 12/15/18 12:51 Hgb 11.8 gm/dl (10.1-14.3) 12/15/18 12:51 Hct 35.5 % (30.3-42.9) 12/15/18 12:51 MCV 86 fl (79-97) 12/15/18 12:51 MCH 29 pg (28-32) 12/15/18 12:51 MCHC 33 % (30-34) 12/15/18 12:51 RDW 14.4 % (13.2-15.2) 12/15/18 12:51 Plt Count 333 K/mm3 (140-440) 12/15/18 12:51 Lymph % (Auto) 28.5 % (13.4-35.0) 12/15/18 12:51 [place] % (Auto) 7.1 % (0.0-7.3) 12/15/18 12:51 Eos % (Auto) 2.5 % (0.0-4.3) 12/15/18 12:51 Baso % (Auto) 0.9 % (0.0-1.8) 12/15/18 12:51 Lymph # 2.8 K/mm3 (1.2-5.4) 12/15/18 12:51 [place] # 0.7 K/mm3 (0.0-0.8) 12/15/18 12:51 Eos # 0.2 K/mm3 (0.0-0.4) 12/15/18 12:51 Baso # 0.1 K/mm3 (0.0-0.1) 12/15/18 12:51 Seg Neutrophils % 61.0 % (40.0-70.0) 12/15/18 12:51 Seg Neutrophils # 6.0 K/mm3 (1.8-7.7) 12/15/18 12:51 Sodium 139 mmol/L (137-145) 12/15/18 12:51 Potassium 4.1 mmol/L (3.6-5.0) 12/15/18 12:51 Chloride 106.0 mmol/L (98-107) 12/15/18 12:51 Carbon Dioxide 21 mmol/L (22-30) L 12/15/18 12:51 16 mmol/L 12/15/18 12:51 BUN 9 mg/dL (7-17) 12/15/18 12:51 0.7 mg/dL (0.7-1.2) 12/15/18 12:51 Estimated GFR > 60 ml/min 12/15/18 12:51 13 % 12/15/18 12:51 Glucose 79 mg/dL (65-100) 12/15/18 12:51 Calcium 10.6 mg/dL (8.4-10.2) H 12/15/18 12:51 < 0.20 mg/dL (0.1-1.2) 12/14/18 21:18 AST 21 units/L (5-40) 12/14/18 21:18 ALT 30 units/L (7-56) 12/14/18 21:18 130 units/L (35-129) H 12/14/18 21:18 8.4 g/dL (6.3-8.2) H 12/14/18 21:18 4.3 g/dL (3.9-5) 12/14/18 21:18 1.0 % 12/14/18 21:18 49 units/L (13-60) 12/14/18 21:18 HCG, Qual Negative (Negative) 12/14/18 21:18 PTH Intact 167.2 pg/mL (15-65) H 12/14/18 23:37 Denisse (Yellow) 12/14/18 Unknown Yellow (Yellow) 12/14/18 Unknown Cloudy (Clear) 12/14/18 Unknown Slightly-cloudy (Clear) 12/14/18 Unknown 5.0 (5.0-7.0) 12/14/18 Unknown 5.0 (5.0-7.0) 12/14/18 Unknown Ur Specific [place] 1.014 (1.003-1.030) 12/14/18 Unknown Ur Specific [place] 1.024 (1.003-1.030) 12/14/18 Unknown 30 mg/dl mg/dL (Negative) 12/14/18 Unknown 100 mg/dl mg/dL (Negative) 12/14/18 Unknown 50 mg/dL (Negative) 12/14/18 Unknown Neg mg/dL (Negative) 12/14/18 Unknown Neg mg/dL (Negative) 12/14/18 Unknown Neg mg/dL (Negative) 12/14/18 Unknown Mod (Negative) 12/14/18 Unknown Mod (Negative) 12/14/18 Unknown Neg (Negative) 12/14/18 Unknown Neg (Negative) 12/14/18 Unknown Neg (Negative) 12/14/18 Unknown Neg (Negative) 12/14/18 Unknown < 2.0 mg/dL (<2.0) 12/14/18 Unknown < 2.0 mg/dL (<2.0) 12/14/18 Unknown Ur Leukocyte Esterase Lg (Negative) 12/14/18 Unknown Ur Leukocyte Esterase Neg (Negative) 12/14/18 Unknown 3.0 /HPF (0.0-6.0) 12/14/18 Unknown > 182.0 /HPF (0.0-6.0) H 12/14/18 Unknown 21.0 /HPF (0.0-6.0) 12/14/18 Unknown 75.0 /HPF (0.0-6.0) 12/14/18 Unknown U Epithel Cells (Auto) 2.0 /HPF (0-13.0) 12/14/18 Unknown U Epithel Cells (Auto) < 1.0 /HPF (0-13.0) 12/14/18 Unknown 1+ /HPF (Negative) 12/14/18 Unknown 4+ /HPF (Negative) 12/14/18 Unknown Few /HPF 12/14/18 Unknown Few /HPF 12/14/18 Unknown Few /HPF 12/14/18 Unknown Urine HCG, Qual Negative (Negative) 12/14/18 Unknown Assessment and Plan Assessment and plan: I personally discussed the pt with the [employer] PATROL DIRECTOR-C, I agree with the above assessment and plan
[2018-12-15] MEDS: SODIUM CHLORIDE 0.9% 1000 ML 1,000 ML IV SCH ×3 (04:23→21:16)
[2018-12-15] MEDS: cefTRIAXone/NS 1 GM/50 ML 1 GM/50 ML BAG IV SCH (09:58)
[2018-12-15] MEDS: ENOXAPARIN 40 MG/0.4 ML INJ SUB-Q SCH (09:58)
[2018-12-15] MEDS: DOCUSATE SODIUM 100 MG CAP PO SCH ×2 (09:59→21:16)
--- NOTE | 2018-12-15 11:18 | Event Note ---
Date: 12/15/18 Patient admitted earlier this morning for the management of UTI, ureteric stone with mild to moderate hydronephrosis, hyperparathyroidism with hypercalcemia. I have seen and evaluated the patient patient didn't have any pain. Patient is on IV antibiotic and IV fluid. Patient may need follow-up with liquor commissioner for hyperparathyroidism. Continue management as outlined per H&P.
[2018-12-15 13:26] LABS: Basophils # (Auto) 0.1 K/mm3 (0.0-0.1); Basophils % (Auto) 0.9 % (0.0-1.8); Eosinophils # (Auto) 0.2 K/mm3 (0.0-0.4); Eosinophils % (Auto) 2.5 % (0.0-4.3); Hematocrit 35.5 % (30.3-42.9); Hemoglobin 11.8 gm/dl (10.1-14.3); Lymphocytes # (Auto) 2.8 K/mm3 (1.2-5.4); Lymphocytes % (Auto) 28.5 % (13.4-35.0); Mean Corpuscular HGB Conc 33 % (30-34); Mean Corpuscular Volume 86 fl (79-97); Monocytes # (Auto) 0.7 K/mm3 (0.0-0.8); Monocytes % (Auto) 7.1 % (0.0-7.3); Platelet Count 333 K/mm3 (140-440); Red Blood Count 4.15 M/mm3 (3.65-5.03); Red Cell Distribution Width 14.4 % (13.2-15.2)
[2018-12-15 13:37] LABS: BUN/Creatinine Ratio 13; Blood Urea Nitrogen 9 mg/dL (7-17); Calcium 10.6 mg/dL (8.4-10.2); Hemolysis Index 2
[2018-12-16] MEDS: SODIUM CHLORIDE 0.9% 1000 ML 1,000 ML IV SCH ×3 (05:18→23:48)
[2018-12-16 07:29] LABS: Basophils # (Auto) 0.1 K/mm3 (0.0-0.1); Basophils % (Auto) 0.7 % (0.0-1.8); Eosinophils # (Auto) 0.3 K/mm3 (0.0-0.4); Eosinophils % (Auto) 4.1 % (0.0-4.3); Hematocrit 34.6 % (30.3-42.9); Hemoglobin 11.5 gm/dl (10.1-14.3); Lymphocytes # (Auto) 2.4 K/mm3 (1.2-5.4); Mean Corpuscular HGB Conc 33 % (30-34); Mean Corpuscular Volume 85 fl (79-97); Monocytes # (Auto) 0.6 K/mm3 (0.0-0.8); Monocytes % (Auto) 8.6 % (0.0-7.3); Platelet Count 305 K/mm3 (140-440); Red Blood Count 4.08 M/mm3 (3.65-5.03); Red Cell Distribution Width 14.1 % (13.2-15.2)
[2018-12-16 07:41] LABS: BUN/Creatinine Ratio 11; Blood Urea Nitrogen 8 mg/dL (7-17); Calcium 10.5 mg/dL (8.4-10.2); Hemolysis Index 4
--- NOTE | 2018-12-16 11:43 | Progress Note ---
Assessment and Plan Assessment and plan: 33-year-old female with history of kidney stone and urinary tract infection who presents [facility] ED with complaints of nausea, vomiting, suprapubic pain and right sided flank pain. UTI -Previously diagnosed and treated with by mouth antibiotics for UTI on 10/01/18 -Urine WBC >182 -Urine culture pending -Start on IV Abx Left ureteral stone, 1. 4 mm stone in the mid to distal left ureter with mild to moderate left hydroureteronephrosis. Urology consult Acute abdominal pain -Likely multifactorial to UTI and left ureter stone -Continue supportive care -Receiving IVF -Clear diet Right ovarian cyst -CT abdomen pelvis revealed incidental finding of Small right ovarian cyst with trace free fluid in the pelvis -Will require outpatient follow up with BEHAVIORAL MEDICAL DIRECTOR Hypercalcemia -PTH elevated at 167.2 -Outpatient follow-up with pecan huller DVT PPX -on Lovenox History Interval history: Review of systems Constitutional: No fevers, no malaise, no joint pains CVS: No chest pain, no orthopnea, no pedal edema GI: No abdominal pain, no diarrhea, no vomiting, no constipation Respiratory: No shortness of breath, no wheezing, no coughing Hospitalist Physical - Physical exam Narrative exam: General.: Appears well, no distress, nontoxic HEENT: Moist mucous membranes, extraocular muscles intact, no lymphadenopathy Neck: supple Cardiac: S1-S2 heard Lungs: clear to auscultation bilaterally Abdomen: soft , nontender, nondistended, bowel sounds positive Extremities: no edema clubbing or cyanosis Skin: no rash or lesions Neurologic: no gross focal deficits Psych: calm, and cooperative - Constitutional Vitals: Temp Pulse Resp BP Pulse Ox 97.9 F 78 18 122/67 98 12/16/18 03:44 12/16/18 03:44 12/16/18 03:44 12/16/18 03:44 12/16/18 03:44 Results - Labs CBC & Chem 7: 12/16/18 07:04 12/17/18 05:32 Labs: Laboratory Last Values WBC 7.4 K/mm3 (4.5-11.0) 12/16/18 07:04 RBC 4.08 M/mm3 (3.65-5.03) 12/16/18 07:04 Hgb 11.5 gm/dl (10.1-14.3) 12/16/18 07:04 Hct 34.6 % (30.3-42.9) 12/16/18 07:04 MCV 85 fl (79-97) 12/16/18 07:04 MCH 28 pg (28-32) 12/16/18 07:04 MCHC 33 % (30-34) 12/16/18 07:04 RDW 14.1 % (13.2-15.2) 12/16/18 07:04 Plt Count 305 K/mm3 (140-440) 12/16/18 07:04 Lymph % (Auto) 32.0 % (13.4-35.0) 12/16/18 07:04 [place] % (Auto) 8.6 % (0.0-7.3) H 12/16/18 07:04 Eos % (Auto) 4.1 % (0.0-4.3) 12/16/18 07:04 Baso % (Auto) 0.7 % (0.0-1.8) 12/16/18 07:04 Lymph # 2.4 K/mm3 (1.2-5.4) 12/16/18 07:04 [place] # 0.6 K/mm3 (0.0-0.8) 12/16/18 07:04 Eos # 0.3 K/mm3 (0.0-0.4) 12/16/18 07:04 Baso # 0.1 K/mm3 (0.0-0.1) 12/16/18 07:04 Seg Neutrophils % 54.6 % (40.0-70.0) 12/16/18 07:04 Seg Neutrophils # 4.0 K/mm3 (1.8-7.7) 12/16/18 07:04 Sodium 140 mmol/L (137-145) 12/16/18 07:04 Potassium 3.9 mmol/L (3.6-5.0) 12/16/18 07:04 Chloride 106.4 mmol/L (98-107) 12/16/18 07:04 Carbon Dioxide 23 mmol/L (22-30) 12/16/18 07:04 Anion Gap 15 mmol/L 12/16/18 07:04 BUN 8 mg/dL (7-17) 12/16/18 07:04 Creatinine 0.7 mg/dL (0.7-1.2) 12/16/18 07:04 Estimated GFR > 60 ml/min 12/16/18 07:04 BUN/Creatinine Ratio 11 % 12/16/18 07:04 Glucose 118 mg/dL (65-100) H 12/16/18 07:04 Calcium 10.5 mg/dL (8.4-10.2) H 12/16/18 07:04 Total Bilirubin < 0.20 mg/dL (0.1-1.2) 12/14/18 21:18 AST 21 units/L (5-40) 12/14/18 21:18 ALT 30 units/L (7-56) 12/14/18 21:18 Alkaline Phosphatase 130 units/L (35-129) H 12/14/18 21:18 Total Protein 8.4 g/dL (6.3-8.2) H 12/14/18 21:18 Albumin 4.3 g/dL (3.9-5) 12/14/18 21:18 Albumin/Globulin Ratio 1.0 % 12/14/18 21:18 Lipase 49 units/L (13-60) 12/14/18 21:18 HCG, Qual Negative (Negative) 12/14/18 21:18 PTH Intact 167.2 pg/mL (15-65) H 12/14/18 23:37 Urine Color [place]isse (Yellow) 12/14/18 Unknown Urine Color Yellow (Yellow) 12/14/18 Unknown Urine Turbidity Cloudy (Clear) 12/14/18 Unknown Urine Turbidity Slightly-cloudy (Clear) 12/14/18 Unknown Urine pH 5.0 (5.0-7.0) 12/14/18 Unknown Urine pH 5.0 (5.0-7.0) 12/14/18 Unknown Ur Specific [place] 1.014 (1.003-1.030) 12/14/18 Unknown Ur Specific [place] 1.024 (1.003-1.030) 12/14/18 Unknown Urine Protein 30 mg/dl mg/dL (Negative) 12/14/18 Unknown Urine Protein 100 mg/dl mg/dL (Negative) 12/14/18 Unknown Urine Glucose (UA) 50 mg/dL (Negative) 12/14/18 Unknown Urine Glucose (UA) Neg mg/dL (Negative) 12/14/18 Unknown Urine Ketones Neg mg/dL (Negative) 12/14/18 Unknown Urine Ketones Neg mg/dL (Negative) 12/14/18 Unknown Urine Blood Mod (Negative) 12/14/18 Unknown Urine Blood Mod (Negative) 12/14/18 Unknown Urine Nitrite Neg (Negative) 12/14/18 Unknown Urine Nitrite Neg (Negative) 12/14/18 Unknown Urine Bilirubin Neg (Negative) 12/14/18 Unknown Urine Bilirubin Neg (Negative) 12/14/18 Unknown Urine Urobilinogen < 2.0 mg/dL (<2.0) 12/14/18 Unknown Urine Urobilinogen < 2.0 mg/dL (<2.0) 12/14/18 Unknown Ur Leukocyte Esterase Lg (Negative) 12/14/18 Unknown Ur Leukocyte Esterase Neg (Negative) 12/14/18 Unknown Urine WBC (Auto) 3.0 /HPF (0.0-6.0) 12/14/18 Unknown Urine WBC (Auto) > 182.0 /HPF (0.0-6.0) H 12/14/18 Unknown Urine RBC (Auto) 21.0 /HPF (0.0-6.0) 12/14/18 Unknown Urine RBC (Auto) 75.0 /HPF (0.0-6.0) 12/14/18 Unknown U Epithel Cells (Auto) 2.0 /HPF (0-13.0) 12/14/18 Unknown U Epithel Cells (Auto) < 1.0 /HPF (0-13.0) 12/14/18 Unknown Urine Bacteria (Auto) 1+ /HPF (Negative) 12/14/18 Unknown Urine Bacteria (Auto) 4+ /HPF (Negative) 12/14/18 Unknown Urine Mucus Few /HPF 12/14/18 Unknown Urine Mucus Few /HPF 12/14/18 Unknown Urine Yeast (Budding) Few /HPF 12/14/18 Unknown Urine HCG, Qual Negative (Negative) 12/14/18 Unknown Active Medications - Current Medications Current Medications: Generic Name Dose Route Start Last Admin Trade Name Freq PRN Reason Stop Dose Admin Acetaminophen 650 mg 12/15/18 01:19 Tylenol PO Q4H PRN Pain MILD(1-3)/Fever >100.5/POTTS Acetaminophen/Hydrocodone Bitart 2 each 12/15/18 01:19 [place] 5/325 PO Q6H PRN Pain, Moderate (4-6) Docusate Sodium 100 mg 12/15/18 10:00 12/15/18 21:16 Colace PO 100 mg BID PHANI Administration Enoxaparin Sodium 40 mg 12/15/18 10:00 12/15/18 09:58 Lovenox SUB-Q 40 mg QDAY PHANI Administration Hydromorphone HCl 0.5 mg 12/15/18 01:19 Dilaudid IV Q3H PRN Pain , Severe (7-10) Sodium Chloride 1,000 mls @ 125 mls/hr 12/15/18 02:00 12/16/18 05:18 Nacl 0.9% 1000 Ml IV 125 mls/hr DIRECT PHANI Administration Ceftriaxone Sodium 1 gm in 50 mls @ 100 mls/hr 12/15/18 10:00 12/15/18 09:58 Rocephin/Ns 1 Gm/50 Ml IV 100 mls/hr Q24HR PHANI Administration Protocol Metoclopramide HCl 10 mg 12/15/18 01:19 Reglan IV Q6H PRN Nausea And Vomiting Ondansetron HCl 4 mg 12/15/18 01:19 Zofran IV Q4H PRN Nausea And Vomiting Sodium Chloride 10 ml 12/15/18 10:00 12/15/18 21:17 Sodium Chloride Flush Syringe 10 Ml IV 10 ml BID PHANI Administration Sodium Chloride 10 ml 12/15/18 01:19 Sodium Chloride Flush Syringe 10 Ml IV PRN PRN LINE FLUSH
[2018-12-16] MEDS: cefTRIAXone/NS 1 GM/50 ML 1 GM/50 ML BAG IV SCH (12:15)
[2018-12-16] MEDS: DOCUSATE SODIUM 100 MG CAP PO SCH ×2 (12:15→21:47)
[2018-12-16] MEDS: ENOXAPARIN 40 MG/0.4 ML INJ SUB-Q SCH (12:15)
[2018-12-16] MEDS ORDERED: CALCITONIN,SALMON,SYNTHETIC 400 UNIT/2 ML INJ MDV SUB-Q ONE (14:00)
--- NOTE | 2018-12-16 21:15 | Ultrasound Report ---
Bilateral renal ultrasound. 12/16/2018. HISTORY: Kidney stones. Flank pain. COMPARISON: CT abdomen and pelvis 12/10/2018. FINDINGS: Right kidney measures 11.5 cm. Cortical thickness is 1.8 cm. Left kidney measures 12.4 cm. Cortical thickness is 2.1 cm. Prominent hydronephrosis remains. Negative for renal stone or mass. The bladder contains moderate urine. IMPRESSION: Persistent prominent left-sided hydronephrosis. Signer Name: Darci Gomez MD Signed: 12/16/2018 9:11 PM Workstation Name: [id number]
[2018-12-17 06:39] VITALS: BP 90/49
[2018-12-17 07:31] LABS: BUN/Creatinine Ratio 15; Blood Urea Nitrogen 9 mg/dL (7-17); Calcium 10.4 mg/dL (8.4-10.2); Hemolysis Index 0
--- NOTE | 2018-12-17 08:46 | Consultation ---
History of Present Illness - Reason for Consult Consult date: 12/17/18 - History of Present Illness non compliant pt known to our service (hospital consult from the past) 33-year-old female with history of kidney stone and urinary tract infection who presents [facility] ED with complaints of nausea, vomiting, suprapubic pain and right sided flank pain. States that earlier today she began having nausea fol followed by emesis, as the day she developed suprapubic pain and right-sided flank pain. The pain is constant and described as sharp. She rates her pain 10/10. The pain is relieved with pain meds. Additionally she complains of shortness of breath related to her pain. may have endocrine cause of stones cysto stent in past (Dr. Blanco) translation line used (nurse also present) CT Abd/Pelvis:. RIGHT KIDNEY and URETER: Mild right renal scarring has developed since the prior study. No acute findings. LEFT KIDNEY and URETER: 4 mm stone in the mid to distal left ureter as seen on axial series 2 [id number]. Mild/moderate left hydroureteronephrosis with mild ureteral wall thickening and enhancement. Slight decreased enhancement of the left kidney indicating mild obstructive uropathy. abd soft A/P Rt 4 mm ureteral stone with hydro (normal WBC, normal Creatinine, no fever) pt states she feels better & no pain ok to dc home from gu standpoint (if intervention needed, recommend consult intervention radiology for perc tube only) will sign off Past History Past Medical History: other (UTI 10/01/18, kidney stone) Past Surgical History: (x2, kidney stone removed) Social history: lives with family Family history: no significant family history Medications and Allergies Allergies Allergy/AdvReac Type Severity Reaction Status Date / Time morphine Allergy Severe Anaphylaxis Verified 12/15/18 01:02 Home Medications Medication Instructions Recorded Confirmed Last Taken Type No Known Home Medications [No 12/15/18 12/15/18 Unknown History Reported Home Medications] Active Meds: Active Medications Acetaminophen (Tylenol) 650 mg PO Q4H PRN PRN Reason: Pain MILD(1-3)/Fever >100.5/POTTS Acetaminophen/Hydrocodone Bitart ([place] 5/325) 2 each PO Q6H PRN PRN Reason: Pain, Moderate (4-6) Docusate Sodium (Colace) 100 mg PO BID PHANI Last Admin: 12/16/18 21:47 Dose: 100 mg Documented by: Enoxaparin Sodium (Lovenox) 40 mg SUB-Q QDAY [facility] Last Admin: 12/16/18 12:15 Dose: 40 mg Documented by: Hydromorphone HCl (Dilaudid) 0.5 mg IV Q3H PRN PRN Reason: Pain , Severe (7-10) Sodium Chloride (Nacl 0.9% 1000 Ml) 1,000 mls @ 200 mls/hr IV DIRECT PHANI Last Admin: 12/16/18 23:48 Dose: 125 mls/hr Documented by: Ceftriaxone Sodium (Rocephin/Ns 1 Gm/50 Ml) 1 gm in 50 mls @ 100 mls/hr IV Q24HR [facility]; Protocol Last Admin: 12/16/18 12:15 Dose: 100 mls/hr Documented by: Metoclopramide HCl (Reglan) 10 mg IV Q6H PRN PRN Reason: Nausea And Vomiting Ondansetron HCl (Zofran) 4 mg IV Q4H PRN PRN Reason: Nausea And Vomiting Sodium Chloride (Sodium Chloride Flush Syringe 10 Ml) 10 ml IV BID [facility] Last Admin: 12/16/18 21:47 Dose: 10 ml Documented by: Sodium Chloride (Sodium Chloride Flush Syringe 10 Ml) 10 ml IV PRN PRN PRN Reason: LINE FLUSH Exam - Constitutional Vitals: Temp Pulse Resp BP Pulse Ox 98.0 F 74 15 90/49 98 12/17/18 05:34 12/17/18 05:34 12/17/18 05:34 12/17/18 05:34 12/17/18 05:34 Results - Labs CBC & Chem 7: 12/16/18 07:04 12/17/18 05:32 Labs: Abnormal lab results 12/17/18 Range/Units 05:32 Chloride 107.1 H (98-107) mmol/L Carbon Dioxide 20 L (22-30) mmol/L Creatinine 0.6 L (0.7-1.2) mg/dL Calcium 10.4 H (8.4-10.2) mg/dL
[2018-12-17] MEDS: cefTRIAXone/NS 1 GM/50 ML 1 GM/50 ML BAG IV SCH (10:00)
[2018-12-17] MEDS: SODIUM CHLORIDE 0.9% 1000 ML 1,000 ML IV SCH (10:00)
[2018-12-17] MEDS: DOCUSATE SODIUM 100 MG CAP PO SCH (10:01)
[2018-12-17] MEDS: ENOXAPARIN 40 MG/0.4 ML INJ SUB-Q SCH (10:01)
--- NOTE | 2018-12-17 11:55 | Discharge Summary ---
Providers - Providers Date of Admission: 12/15/18 01:19 Attending physician: MAKAYLA NAPOLES MD 12/16/18 14:02 Consult to Physician [CONS] Routine Comment: Consulting Provider: SHASHANK MERA Physician Instructions: Reason For Exam: ureteral stone and hydro Primary care physician: DIRECTOR OF INSTITUTIONAL SALES Hospitalization Condition: Stable Hospital course: 33-year-old Bengali-speaking woman who presented to the hospitalVomiting suprapubic pain right-sided flank pain. She was found to have small stone in the left ureter. She was seen by urology who recommended IV fluids and stated that symptoms were improving until most likely passed on its own. She was found to have hyperparathyroidism and hypercalcemia. She was hydrated, she was advised to see an ENT surgeon for ultimate treatment of her condition. She also advised to stay hydrated and drink 4 to 5 L of water daily. She verbalized understanding. Diagnosis Hyperparathyroidism Hypercalcemia Nephrolithiasis Obstructive uropathy due to left ureteric stone Left hydro-utero nephrosis Disposition: TO HOME OR SELFCARE Time spent for discharge: 33 mins Core Measure Documentation - Palliative Care Palliative Care/ Comfort Measures: Not Applicable - Core Measures Any of the following diagnoses?: none Exam - Constitutional Vitals: Temp Pulse Resp BP Pulse Ox 98.0 F 74 15 90/49 98 12/17/18 05:34 12/17/18 05:34 12/17/18 05:34 12/17/18 05:34 12/17/18 05:34 General appearance: Present: no acute distress, well-nourished - EENT Eyes: Present: PERRL ENT: hearing intact, clear oral mucosa - Neck Neck: Present: supple, normal ROM - Respiratory Respiratory effort: normal Respiratory: bilateral: CTA - Cardiovascular Heart Sounds: Present: S1 & S2. Absent: rub, click - Extremities Extremities: pulses symmetrical, No edema Peripheral Pulses: within normal limits - Abdominal General gastrointestinal: Present: soft, non-tender, non-distended, normal bowel sounds Female genitourinary: Present: normal - Integumentary Integumentary: Present: clear, warm, dry - Musculoskeletal Musculoskeletal: gait normal, strength equal bilaterally - Psychiatric Psychiatric: appropriate mood/affect, intact judgment & insight - Neurologic Neurologic: CNII-XII intact, moves all extremities Plan Additional Instructions: Please stay well hydrated, drink 3- 4 Litres of water daily. You need to follow up with an ENT doctor for hyperparathyroidism. - Options include [facility] Follow up with: PRIMARY CARE,MD [Primary Care Provider] - 3-5 Days Prescriptions: Calcitonin,[place] (Nf) [Miacalcin (Nf)] 1 spray NS DAILY #1 bottle HYDROcodone/APAP 5-325 [[place] 5-325 mg TAB] 2 each PO Q6H PRN #10 tablet PRN Reason: Pain, Moderate (4-6)
== END 2018-12-17 14:40 | disposition home or self-care (01) ==
LOC: ED 20:39 → 3A 12-15 01:19
PROVIDERS: ADMIT Internal Medicine; ATTEND Internal Medicine
DX: N39.0 Urinary tract infection, site not specified (principal); N20.1 Calculus of ureter; N83.201 Unspecified ovarian cyst, right side; R11.2 Nausea with vomiting, unspecified; Z87.442 Personal history of urinary calculi; Z98.891 History of uterine scar from previous surgery
CPT/HCPCS: 36415; 74177; 76770; 80048; 80053; 81001; 81025; 83690; 83970; 84703; 85025; 87086; 93005; 93010; 96361; 96365; 96366; 96372; 96375; 99284; G0378; J0696; J1650; J1885; J7030; Q9967; J0630; Q0162

== ENCOUNTER 2019-09-15 02:01 | Inpatient (IN) | payer SELFPAY ==
[2019-09-15] MEDS ORDERED: ACETAMINOPHEN 500 MG TAB PO ONE (03:03)
--- NOTE | 2019-09-15 03:04 | Emergency Department Report ---
<JAN ROYAL - Last Filed: 09/15/19 06:42> ED General Adult HPI - General Chief complaint: Chest Pain Stated complaint: DIFFICULTY IN BREATHING, NAUSEA PUI?: Yes Time Seen by Provider: 09/15/19 02:54 Source: patient Mode of arrival: Ambulatory Limitations: Language Barrier - History of Present Illness Initial comments: 34-year-old female comes to the emergency room complaining of chest pain body aches nausea vomiting abdominal pain headache difficulty breathing fever nasal congestion sore throat and ear pain since 4 PM today. Patient reports a past medical history of kidney problems. Patient is unaware of any COVID-19 positive contact. He currently takes no medications on a daily basis and does not have any diarrhea. She is allergic to morphine. Onset/Timin -: hour(s) Location: chest, abdomen, upper extremity, lower extremity Radiation: non-radiation Severity scale (0 -10): 8 Quality: aching Consistency: constant Worsens with: none Associated Symptoms: fever/chills, headaches, nausea/vomiting, other (Body aches) - Related Data Previous Rx's Medication Instructions Recorded Last Taken Type Calcitonin,[place] (Nf) [Miacalcin 1 spray NS DAILY #1 bottle 12/17/18 Unknown Rx (Nf)] HYDROcodone/APAP 5-325 [[place] 2 each PO Q6H PRN #10 tablet 12/17/18 Unknown Rx 5-325 mg TAB] Allergies Allergy/AdvReac Type Severity Reaction Status Date / Time morphine Allergy Severe Anaphylaxis Verified 12/15/18 01:02 ED Past Medical Hx - Past Medical History Previous Medical History?: Yes Hx Hypertension: No Hx Congestive Heart Failure: No Hx Diabetes: No Hx Deep Vein Thrombosis: No Hx Renal Disease: No Hx Sickle Cell Disease: No Hx Seizures: No Hx Kidney Stones: Yes Hx Asthma: No Hx COPD: No Hx HIV: No - Surgical History Past Surgical History?: Yes Hx Cholecystectomy: Yes Additional Surgical History: x2, kidney stone removed - Social History Smoking Status: Never Smoker Substance Use Type: None - Medications Home Medications: Home Medications Medication Instructions Recorded Confirmed Last Taken Type Calcitonin,[place] (Nf) [Miacalcin 1 spray NS DAILY #1 bottle 12/17/18 09/15/19 Unknown Rx (Nf)] HYDROcodone/APAP 5-325 [[place] 2 each PO Q6H PRN #10 tablet 12/17/18 09/15/19 Unknown Rx 5-325 mg TAB] ED Physical Exam - General Limitations: Language Barrier General appearance: alert, in no apparent distress - Head Head exam: Present: atraumatic, normocephalic - Eye Eye exam: Present: normal appearance - ENT ENT exam: Present: mucous membranes moist - Neck Neck exam: Present: normal inspection, full ROM - Respiratory Respiratory exam: Present: normal lung sounds bilaterally. Absent: respiratory distress - Cardiovascular Cardiovascular Exam: Present: tachycardia - GI/Abdominal GI/Abdominal exam: Present: soft, tenderness. Absent: distended, guarding, rebound - Expanded Lower Extremity Exam Left Hip exam: Present: tenderness Upper Leg exam: Present: tenderness Knee exam: Present: tenderness Lower Leg exam: Present: tenderness Ankle exam: Present: tenderness Foot/Toe exam: Present: tenderness Right Upper Leg exam: Present: tenderness Knee exam: Present: tenderness Lower Leg exam: Present: tenderness Ankle exam: Present: tenderness Foot/Toe exam: Present: tenderness Neuro vascular tendon exam: Present: no vascular compromise - Back Exam Back exam: Present: normal inspection - Neurological Exam Neurological exam: Present: alert, oriented X3 - Psychiatric Psychiatric exam: Present: normal affect, normal mood - Skin Skin exam: Present: warm, dry, intact, normal color. Absent: rash ED Medical Decision Making - Lab Data Result diagrams: 09/15/19 03:05 09/15/19 03:05 - Medical Decision Making 34-year-old female comes to the emergency room complaining of chest pain body aches nausea vomiting abdominal pain headache difficulty breathing fever nasal congestion sore throat and ear pain since 4 PM today. Patient reports a past medical history of kidney problems. Patient is unaware of any COVID-19 positive contact. She currently takes no medications on a daily basis and does not have any diarrhea. She is allergic to morphine. CBC, CMP, UA and chest x-ray Spoke with attending Dr. Anton he recommends patient to get fluid resuscitation of 3 L and to admit patient for hyper calcemia and fluid resuscitation. Spoke to hospitalist Dr. Mccormick informed him that the patient has a urinary tract infection and he would like me to place patient on Rocephin 1 g IV. ED Disposition Clinical Impression: Tachycardia, Hypercalcemia, Suspected 2019 novel coronavirus infection Leukocytosis Qualifiers: Leukocytosis type: unspecified Qualified Code(s): D72.829 - Elevated white blood cell count, unspecified UTI (urinary tract infection) Qualifiers: Urinary tract infection type: site unspecified Hematuria presence: without hematuria Qualified Code(s): N39.0 - Urinary tract infection, site not specified Disposition: DC-09 OP ADMIT IP TO THIS HOSP Is pt being admited?: Yes Does the pt Need Aspirin: Yes Condition: Stable <SEROTHARLEY CHAMBERS - Last Filed: 09/16/19 05:37> ED Review of Systems ROS: Stated complaint: DIFFICULTY IN BREATHING, NAUSEA Other details as noted in HPI ED Course Vital Signs 09/15/19 09/15/19 09/15/19 02:03 05:12 06:15 Temperature 98.7 F 98 F Pulse Rate 121 H 88 Respiratory 18 16 20 Rate Blood Pressure 119/81 Blood Pressure 112/66 [Left] O2 Sat by Pulse 97 100 99 Oximetry ED Medical Decision Making - Lab Data Result diagrams: 09/16/19 04:23 09/15/19 04:34 Critical care attestation.: If time is entered above; I have spent that time in minutes in the direct care of this critically ill patient, excluding procedure time. ED Disposition Is pt being admited?: Yes Does the pt Need Aspirin: Yes
[2019-09-15 03:26] LABS: Basophils % (Auto) 0.2 % (0.0-1.8); Hematocrit 39.5 % (30.3-42.9); Hemoglobin 13.2 gm/dl (10.1-14.3); Lymphocytes # (Auto) 0.7 K/mm3 (1.2-5.4); Lymphocytes % (Auto) 3.5 % (13.4-35.0); Mean Corpuscular HGB Conc 33 % (30-34); Mean Corpuscular Volume 84 fl (79-97); Monocytes # (Auto) 1.5 K/mm3 (0.0-0.8); Monocytes % (Auto) 7.7 % (0.0-7.3); Platelet Count 289 K/mm3 (140-440); Red Blood Count 4.69 M/mm3 (3.65-5.03); Red Cell Distribution Width 14.4 % (13.2-15.2)
--- NOTE | 2019-09-15 03:50 | XRay Report ---
CHEST PA AND LATERAL VIEWS INDICATION: Chest pain and difficulty breathing. COMPARISON: None. FINDINGS: Support devices: None. Heart: Within normal limits. Lungs/Pleura: No acute pulmonary or pleural findings. IMPRESSION: 1. No acute findings. Signer Name: Ricky Leigh MD Signed: 09/15/2019 3:46 AM Workstation Name: [id number]
[2019-09-15 04:08] LABS: Alanine Aminotransferase 59 units/L (7-56); Albumin 4.3 g/dL (3.9-5); BUN/Creatinine Ratio 13; Blood Urea Nitrogen 12 mg/dL (7-17)
[2019-09-15 04:09] LABS: Calcium 12.4 mg/dL (8.4-10.2); Hemolysis Index 6
[2019-09-15] MEDS ORDERED: SODIUM CHLORIDE 0.9% 1000 ML 1,000 ML IV ONE (04:16)
[2019-09-15] MEDS ORDERED: SODIUM CHLORIDE 0.9% 1000 ML 2,000 ML IV ONE (04:20)
--- NOTE | 2019-09-15 04:24 | Event Note ---
Date: 09/15/19 34-year-old female with constitutional symptoms, found to be tachycardic with a leukocytosis, placed on isolation, markedly hypercalcemic. Additional laboratory studies ordered. Patient meets systemic inflammatory response syndrome criteria. Suspicious for viral infection, COVID rule out. Vital Signs 09/15/19 02:03 Temperature 98.7 F Pulse Rate 121 H Respiratory 18 Rate Blood Pressure 119/81 O2 Sat by Pulse 97 Oximetry Lab Results 09/15/19 09/15/19 Range/Units 03:05 03:05 WBC 19.7 H (4.5-11.0) K/mm3 RBC 4.69 (3.65-5.03) M/mm3 Hgb 13.2 (10.1-14.3) gm/dl Hct 39.5 (30.3-42.9) % MCV 84 (79-97) fl MCH 28 (28-32) pg MCHC 33 (30-34) % RDW 14.4 (13.2-15.2) % Plt Count 289 (140-440) K/mm3 Lymph % (Auto) 3.5 L (13.4-35.0) % [place] % (Auto) 7.7 H (0.0-7.3) % Eos % (Auto) 0.0 (0.0-4.3) % Baso % (Auto) 0.2 (0.0-1.8) % Lymph # 0.7 L (1.2-5.4) K/mm3 [place] # 1.5 H (0.0-0.8) K/mm3 Eos # 0.0 (0.0-0.4) K/mm3 Baso # 0.0 (0.0-0.1) K/mm3 Seg Neutrophils % 88.6 H (40.0-70.0) % Seg Neutrophils # 17.4 H (1.8-7.7) K/mm3 Sodium 137 (137-145) mmol/L Potassium 3.9 (3.6-5.0) mmol/L Chloride 101.9 (98-107) mmol/L Carbon Dioxide 22 (22-30) mmol/L Anion Gap 17 mmol/L BUN 12 (7-17) mg/dL Creatinine 0.9 (0.7-1.2) mg/dL Estimated GFR > 60 ml/min BUN/Creatinine Ratio 13 % Glucose 133 H (65-100) mg/dL Calcium 12.4 H* (8.4-10.2) mg/dL Total Bilirubin 0.50 (0.1-1.2) mg/dL AST 33 (5-40) units/L ALT 59 H (7-56) units/L Alkaline Phosphatase 96 (35-129) units/L Total Protein 8.0 (6.3-8.2) g/dL Albumin 4.3 (3.9-5) g/dL Albumin/Globulin Ratio 1.2 %
[2019-09-15] MEDS: SODIUM CHLORIDE 0.9% 1000 ML 2,000 ML IV ONE ×2 (04:30→05:04)
[2019-09-15 04:33] LABS: Bacteria,Urine 1+ /HPF (Negative); Bilirubin,Urine NEG (Negative); Blood,Urine SM (Negative); Color,Urine Yellow (Yellow); Mucus,Urine FEW /HPF; Protein,Urine <15 mg/dL mg/dL (Negative); Urobilinogen,Urine < 2.0 mg/dL (<2.0)
[2019-09-15] MEDS ORDERED: cefTRIAXone/NS 1 GM/50 ML 1 GM/50 ML BAG IV ONE (05:11)
[2019-09-15 05:51] LABS: C-Reactive Protein 9.8 mg/dL (0.00-1.30)
[2019-09-15] MEDS ORDERED: MAGNESIUM HYDROXIDE (MOM) ORAL LIQD UDC PO PRN (06:16)
[2019-09-15] MEDS ORDERED: HYDROmorphone 1 MG/1 ML INJ IV PRN (06:16)
[2019-09-15] MEDS ORDERED: ACETAMINOPHEN 325 MG TAB PO PRN (06:16)
[2019-09-15] MEDS ORDERED: ONDANSETRON 4 MG/2 ML INJ IV PRN (06:16)
--- NOTE | 2019-09-15 06:29 | History and Physical Report ---
History of Present Illness Date of examination: 09/15/19 Date of admission: 09/15/2019 Chief complaint: Generalized body aches and pain Nausea and vomiting History of present illness: 34-year-old female presenting to the emergency room today complaining of generalized body aches and pain, nausea and vomiting with associated abdominal pain. She also admits that she has had some cough which is nonproductive, sore throat, nasal congestion fever and some difficulty breathing prior to reporting to the emergency room. Symptoms were said to have started earlier today. Patient denies any recent travel and no sick contacts. She denies contact with anyone with COVID-19. Upon arrival in the emergency room she was tachycardic. Her work-up was significant for leukocytosis, hypercalcemia of about 12.4 and a UTI. Chest x-ray was unremarkable. Past History Past Medical History: other (Hypercalcemia) Past Surgical History: (X4) Social history: no significant social history Family history: no significant family history Medications and Allergies Allergies Allergy/AdvReac Type Severity Reaction Status Date / Time morphine Allergy Severe Anaphylaxis Verified 12/15/18 01:02 Home Medications Medication Instructions Recorded Confirmed Last Taken Type Calcitonin,[place] (Nf) [Miacalcin 1 spray NS DAILY #1 bottle 12/17/18 Unknown Rx (Nf)] HYDROcodone/APAP 5-325 [[place] 2 each PO Q6H PRN #10 tablet 12/17/18 Unknown Rx 5-325 mg TAB] Active Meds: Active Medications Acetaminophen (Tylenol) 650 mg PO Q4H PRN PRN Reason: Pain MILD(1-3)/Fever >100.5/POTTS Enoxaparin Sodium (Enoxaparin) 40 mg SUB-Q QDAY@2200 PHANI Hydromorphone HCl (Dilaudid) 0.5 mg IV Q3H PRN PRN Reason: Pain , Severe (7-10) Sodium Chloride (Nacl 0.9% 1000 Ml) 1,000 mls @ 150 mls/hr IV DIRECT PHANI Magnesium Hydroxide (Milk Of Magnesia) 30 ml PO Q4H PRN PRN Reason: Constipation Ondansetron HCl (Zofran) 4 mg IV Q8H PRN PRN Reason: Nausea And Vomiting Sodium Chloride (Sodium Chloride Flush Syringe 10 Ml) 10 ml IV BID PHANI Sodium Chloride (Sodium Chloride Flush Syringe 10 Ml) 10 ml IV PRN PRN PRN Reason: LINE FLUSH Review of Systems Constitutional: fever, malaise, no chills Ears, nose, mouth and throat: no nasal congestion, no sore throat Cardiovascular: no chest pain, no palpitations Respiratory: cough, no shortness of breath Gastrointestinal: abdominal pain, nausea, vomiting, no hematemesis, no coffee ground emesis Genitourinary Female: no flank pain, no dysuria, no hematuria Musculoskeletal: no neck pain, no low back pain Integumentary: no rash, no pruritis Neurological: no headaches, no confusion Psychiatric: no anxiety, no depression Exam - Constitutional Vitals: Temp Pulse Resp BP Pulse Ox 98 F 88 20 112/66 99 09/15/19 06:15 09/15/19 06:15 09/15/19 06:15 09/15/19 06:15 09/15/19 06:15 General appearance: Present: no acute distress, well-nourished - EENT Eyes: Present: PERRL, EOM intact. Absent: scleral icterus ENT: hearing intact, clear oral mucosa, dentition normal - Neck Neck: Present: supple, normal ROM - Respiratory Respiratory effort: normal Respiratory: bilateral: CTA - Cardiovascular Rhythm: regular Heart Sounds: Present: S1 & S2. Absent: gallop, systolic murmur, diastolic murmur, rub - Extremities Extremities: no ischemia, pulses intact, pulses symmetrical, No edema, Full ROM Peripheral Pulses: within normal limits - Abdominal General gastrointestinal: Present: soft, tender (Mild epigastric tenderness), normal bowel sounds. Absent: non-distended, mass - Integumentary Integumentary: Present: clear, warm, dry - Musculoskeletal Musculoskeletal: strength equal bilaterally - Psychiatric Psychiatric: appropriate mood/affect, intact judgment & insight, memory intact, cooperative - Neurologic Neurologic: CNII-XII intact, no focal deficits, moves all extremities Results - Labs CBC & Chem 7: 09/15/19 03:05 09/15/19 04:34 Labs: Abnormal lab results 09/15/19 09/15/19 09/15/19 Range/Units 03:05 03:05 04:06 WBC 19.7 H (4.5-11.0) K/mm3 Lymph % (Auto) 3.5 L (13.4-35.0) % [place] % (Auto) 7.7 H (0.0-7.3) % Lymph # 0.7 L (1.2-5.4) K/mm3 [place] # 1.5 H (0.0-0.8) K/mm3 Seg Neutrophils % 88.6 H (40.0-70.0) % Seg Neutrophils # 17.4 H (1.8-7.7) K/mm3 D-Dimer (0-234) ng/mlDDU Glucose 133 H (65-100) mg/dL Lactic Acid (0.7-2.0) mmol/L Calcium 12.4 H* (8.4-10.2) mg/dL Magnesium (1.7-2.3) mg/dL ALT 59 H (7-56) units/L C-Reactive Protein (0.00-1.30) mg/dL Urine pH 8.0 H (5.0-7.0) Urine WBC (Auto) 121.0 H (0.0-6.0) /HPF U Epithel Cells (Auto) 25.0 H (0-13.0) /HPF 09/15/19 09/15/19 09/15/19 Range/Units 04:34 04:34 04:34 WBC (4.5-11.0) K/mm3 Lymph % (Auto) (13.4-35.0) % [place] % (Auto) (0.0-7.3) % Lymph # (1.2-5.4) K/mm3 [place] # (0.0-0.8) K/mm3 Seg Neutrophils % (40.0-70.0) % Seg Neutrophils # (1.8-7.7) K/mm3 D-Dimer 289.47 H (0-234) ng/mlDDU Glucose 141 H (65-100) mg/dL Lactic Acid (0.7-2.0) mmol/L Calcium (8.4-10.2) mg/dL Magnesium 1.60 L (1.7-2.3) mg/dL ALT (7-56) units/L C-Reactive Protein 9.80 H (0.00-1.30) mg/dL Urine pH (5.0-7.0) Urine WBC (Auto) (0.0-6.0) /HPF U Epithel Cells (Auto) (0-13.0) /HPF 09/15/19 Range/Units 04:34 WBC (4.5-11.0) K/mm3 Lymph % (Auto) (13.4-35.0) % [place] % (Auto) (0.0-7.3) % Lymph # (1.2-5.4) K/mm3 [place] # (0.0-0.8) K/mm3 Seg Neutrophils % (40.0-70.0) % Seg Neutrophils # (1.8-7.7) K/mm3 D-Dimer (0-234) ng/mlDDU Glucose (65-100) mg/dL Lactic Acid 2.10 H* (0.7-2.0) mmol/L Calcium (8.4-10.2) mg/dL Magnesium (1.7-2.3) mg/dL ALT (7-56) units/L C-Reactive Protein (0.00-1.30) mg/dL Urine pH (5.0-7.0) Urine WBC (Auto) (0.0-6.0) /HPF U Epithel Cells (Auto) (0-13.0) /HPF Assessment and Plan - Patient Problems (1) Hypercalcemia Current Visit: Yes Status: Acute Plan to address problem: Etiology is unclear. Patient has been following up with an outside physician for hypercalcemia. Will place on IV fluid and continue to monitor chemistry. We will also check a PTH level. (2) Leukocytosis Current Visit: Yes Status: Acute Qualifiers: Leukocytosis type: unspecified Qualified Code(s): D72.829 - Elevated white blood cell count, unspecified Plan to address problem: Possibly secondary to underlying UTI. Will monitor CBC. (3) Suspected 2019 novel coronavirus infection Current Visit: Yes Status: Acute Plan to address problem: She will be placed on respiratory and droplet precautions. We will follow-up on COVID testing. Consult was placed to infectious disease for evaluation and recommendation. (4) UTI (urinary tract infection) Current Visit: Yes Status: Acute Qualifiers: Urinary tract infection type: site unspecified Hematuria presence: without hematuria Qualified Code(s): N39.0 - Urinary tract infection, site not specified Plan to address problem: Patient placed on empiric IV antibiotics. We will await urine culture result. (5) DVT prophylaxis Current Visit: No Status: Acute Plan to address problem: Patient placed on subcutaneous Lovenox. (6) Full code status Current Visit: Yes Status: Acute
--- NOTE | 2019-09-15 09:10 | Consultation ---
History of Present Illness - Reason for Consult Consult date: 09/15/19 r/o COVID Requesting physician: DOLORES JOHNSTON - History of Present Illness 34 years old female without any past medical history admitted on 09/15/2019 due to nausea, vomiting, abdominal pain, headache, some shortness of breath for 3 days. She reports chest pain but denied cough. She denies any contact with COVID-19 patients. On arrival, temperature 98.7, HR 121, RR 18, O2 97, BP 118/81. Lactate 2.1. Calcium 12. D-dimer 289, ferritin 94, CRP 9.8. Urinalysis shows 121 WBC, large leukocytes. Chest x-ray no acute findings Review of Systems: positive in bold print General: fever, chills, malaise Cutaneous: rash, pruritus Head: headaches or injury Eyes: changes in vision, eye pain, double vision Ears: ear pain, ear discharge, ringing or hearing loss Nose: nose bleeding, stuffiness Mouth & throat: bleeding gums, horseness, no dental problems, or swollen glands Neck: no pain, node enlargement/lumps, tyroid enlargement or tenderness Respiratory: SOB, cough, RAINES, wheezing, sputum, hemoptysis, pleuritic chest pain Cardiovascular: chest pain, leg edema, cyanosis, RAINES, orthopnea Musculoskeletal: edema, deformities, pain Gastrointestinal: nausea, vomiting, abdominal pain, hematemesis, diarrhea, co nstipation, melena, bright red blood in stools, fecal incontinence, jaundice Genitourinary/Reproductive: frequent urination, dysuria, hematuria, incontinence Neurogical: seizures, headaches, weakness, paresthesias, loss of speech or vision; memory loss, vertigo, tremors, numbness Psychiatric: stable mood; excessive anxiety, sadness or moodiness Past History Past Medical History: other (Hypercalcemia) Past Surgical History: (X4) Social history: no significant social history Family history: no significant family history Medications and Allergies Allergies Allergy/AdvReac Type Severity Reaction Status Date / Time morphine Allergy Severe Anaphylaxis Verified 12/15/18 01:02 Home Medications Medication Instructions Recorded Confirmed Last Taken Type Calcitonin,[place] (Nf) [Miacalcin 1 spray NS DAILY #1 bottle 12/17/18 09/15/19 Unknown Rx (Nf)] HYDROcodone/APAP 5-325 [[place] 2 each PO Q6H PRN #10 tablet 12/17/18 09/15/19 Unknown Rx 5-325 mg TAB] Active Meds: Active Medications Acetaminophen (Tylenol) 650 mg PO Q4H PRN PRN Reason: Pain MILD(1-3)/Fever >100.5/POTTS Enoxaparin Sodium (Enoxaparin) 40 mg SUB-Q QDAY@2200 PHANI Hydromorphone HCl (Dilaudid) 0.5 mg IV Q3H PRN PRN Reason: Pain , Severe (7-10) Sodium Chloride (Nacl 0.9% 1000 Ml) 1,000 mls @ 150 mls/hr IV DIRECT PHANI Ceftriaxone Sodium (Rocephin/Ns 2 Gm/100 Ml) 2 gm in 100 mls @ 200 mls/hr IV Q24HR@0600 PHANI Magnesium Hydroxide (Milk Of Magnesia) 30 ml PO Q4H PRN PRN Reason: Constipation Ondansetron HCl (Zofran) 4 mg IV Q8H PRN PRN Reason: Nausea And Vomiting Sodium Chloride (Sodium Chloride Flush Syringe 10 Ml) 10 ml IV BID PHANI Sodium Chloride (Sodium Chloride Flush Syringe 10 Ml) 10 ml IV PRN PRN PRN Reason: LINE FLUSH Physical Examination - Physical Exam Narrative exam: Limited given PPE conservation - Constitutional Vitals: Vital Signs Temp Pulse Resp BP Pulse Ox 98 F 88 20 112/66 99 09/15/19 06:15 09/15/19 06:15 09/15/19 06:15 09/15/19 06:15 09/15/19 06:15 Temperature -Last 24 Hours Temperature 98 F Temperature 98.7 F Results - Labs CBC & Chem 7: 09/15/19 03:05 09/15/19 04:34 Labs: Abnormal lab results 09/15/19 09/15/19 09/15/19 Range/Units 03:05 03:05 04:06 WBC 19.7 H (4.5-11.0) K/mm3 Lymph % (Auto) 3.5 L (13.4-35.0) % [place] % (Auto) 7.7 H (0.0-7.3) % Lymph # 0.7 L (1.2-5.4) K/mm3 [place] # 1.5 H (0.0-0.8) K/mm3 Seg Neutrophils % 88.6 H (40.0-70.0) % Seg Neutrophils # 17.4 H (1.8-7.7) K/mm3 D-Dimer (0-234) ng/mlDDU Glucose 133 H (65-100) mg/dL Lactic Acid (0.7-2.0) mmol/L Calcium 12.4 H* (8.4-10.2) mg/dL Magnesium (1.7-2.3) mg/dL ALT 59 H (7-56) units/L C-Reactive Protein (0.00-1.30) mg/dL Urine pH 8.0 H (5.0-7.0) Urine WBC (Auto) 121.0 H (0.0-6.0) /HPF U Epithel Cells (Auto) 25.0 H (0-13.0) /HPF 09/15/19 09/15/19 09/15/19 Range/Units 04:34 04:34 04:34 WBC (4.5-11.0) K/mm3 Lymph % (Auto) (13.4-35.0) % [place] % (Auto) (0.0-7.3) % Lymph # (1.2-5.4) K/mm3 [place] # (0.0-0.8) K/mm3 Seg Neutrophils % (40.0-70.0) % Seg Neutrophils # (1.8-7.7) K/mm3 D-Dimer 289.47 H (0-234) ng/mlDDU Glucose 141 H (65-100) mg/dL Lactic Acid (0.7-2.0) mmol/L Calcium (8.4-10.2) mg/dL Magnesium 1.60 L (1.7-2.3) mg/dL ALT (7-56) units/L C-Reactive Protein 9.80 H (0.00-1.30) mg/dL Urine pH (5.0-7.0) Urine WBC (Auto) (0.0-6.0) /HPF U Epithel Cells (Auto) (0-13.0) /HPF 09/15/19 Range/Units 04:34 WBC (4.5-11.0) K/mm3 Lymph % (Auto) (13.4-35.0) % [place] % (Auto) (0.0-7.3) % Lymph # (1.2-5.4) K/mm3 [place] # (0.0-0.8) K/mm3 Seg Neutrophils % (40.0-70.0) % Seg Neutrophils # (1.8-7.7) K/mm3 D-Dimer (0-234) ng/mlDDU Glucose (65-100) mg/dL Lactic Acid 2.10 H* (0.7-2.0) mmol/L Calcium (8.4-10.2) mg/dL Magnesium (1.7-2.3) mg/dL ALT (7-56) units/L C-Reactive Protein (0.00-1.30) mg/dL Urine pH (5.0-7.0) Urine WBC (Auto) (0.0-6.0) /HPF U Epithel Cells (Auto) (0-13.0) /HPF Assessment and Plan Cultures: Blood culture 09/15/2019 Assessment: 34 years old female without any past medical history admitted on 09/15/2019 due to nausea, vomiting, abdominal pain, headache, some shortness of breath for 3 days: #Severe sepsis: Present on admission with tachycardia, elevated lactate; secondary to UTI. Doubt COVID-19 infection. Chest x-ray negative. #Acute UTI: Urinalysis with 121 WBC, large leukocytes. Culture pending. #Hypercalcemia: Of unclear etiology. Per primary team. Recommendations: Continue ceftriaxone 2 g IV once a day Follow-up urine culture and blood cultures Follow-up COVID-19 test, however doubt COVID-19 infection Will follow. Renetta Burton MD Infectious Diseases [employer] [facility] M [phone] O [phone]
--- NOTE | 2019-09-15 09:29 | Consultation ---
History of Present Illness - Reason for Consult Consult date: 09/15/19 other (hypercalcemia) - History of Present Illness 34-year-old woman presents with complaints generalized body aches and pain, nausea and vomiting with associated abdominal pain. She was also noted to have dry cough and mild dyspnea. Nephrology consulted due to calcium of 12.4. From chart review, appears that patient has chronic hypercalcemia with calcium noted to be in mid to high 10 in 2019. Patient not seen directly due to COVID- rule out status, history and review of systems obtained from chart review. No major issues noted including mentation changes. Past History Past Medical History: other (Hypercalcemia) Past Surgical History: (X4) Social history: no significant social history Family history: no significant family history Medications and Allergies Allergies Allergy/AdvReac Type Severity Reaction Status Date / Time morphine Allergy Severe Anaphylaxis Verified 12/15/18 01:02 Home Medications Medication Instructions Recorded Confirmed Last Taken Type Calcitonin,[place] (Nf) [Miacalcin 1 spray NS DAILY #1 bottle 12/17/18 09/15/19 Unknown Rx (Nf)] HYDROcodone/APAP 5-325 [[place] 2 each PO Q6H PRN #10 tablet 12/17/18 09/15/19 Unknown Rx 5-325 mg TAB] Active Meds: Active Medications Acetaminophen (Tylenol) 650 mg PO Q4H PRN PRN Reason: Pain MILD(1-3)/Fever >100.5/POTTS Enoxaparin Sodium (Enoxaparin) 40 mg SUB-Q QDAY@2200 PHANI Hydromorphone HCl (Dilaudid) 0.5 mg IV Q3H PRN PRN Reason: Pain , Severe (7-10) Sodium Chloride (Nacl 0.9% 1000 Ml) 1,000 mls @ 150 mls/hr IV DIRECT PHANI Ceftriaxone Sodium (Rocephin/Ns 2 Gm/100 Ml) 2 gm in 100 mls @ 200 mls/hr IV Q24HR@0600 PHANI Magnesium Hydroxide (Milk Of Magnesia) 30 ml PO Q4H PRN PRN Reason: Constipation Ondansetron HCl (Zofran) 4 mg IV Q8H PRN PRN Reason: Nausea And Vomiting Sodium Chloride (Sodium Chloride Flush Syringe 10 Ml) 10 ml IV BID PHANI Sodium Chloride (Sodium Chloride Flush Syringe 10 Ml) 10 ml IV PRN PRN PRN Reason: LINE FLUSH Review of Systems All systems: negative (as per HPI) Exam - Vital Signs Vital signs: Vital Signs Temp Pulse Resp BP Pulse Ox 98.7 F 121 H 18 119/81 97 09/15/19 02:03 09/15/19 02:03 09/15/19 02:03 09/15/19 02:03 09/15/19 02:03 - Physical Exam Narrative exam: Not directly examined due to COVID-rule out status. Reviewed primary team exam. Results - Lab Results 09/15/19 03:05 09/15/19 04:34 Most recent lab results Calcium 12.4 mg/dL (8.4-10.2) H* 09/15/19 03:05 Magnesium 1.60 mg/dL (1.7-2.3) L 09/15/19 04:34 Assessment and Plan # Hypercalcemia Suspect this is an acute on chronic issues, not clear of underlying etiology but likely worsened in setting of dehydration. Continue IVF as needed, no role for furosemide currently. Will check PTH, vitamin D panel to start workup, will check urine calcium/creatinine if remains high. Replete Mg prn # Leukocytosis, Lactic Acidosis Possibly secondary to underlying UTI. ID following, recs appreciated. Follow up cultures. # Suspected 2019 novel coronavirus infection COVID-19 test returned negative
--- NOTE | 2019-09-15 13:07 | Event Note ---
Date: 09/15/19 Patient seen and examined clinically stable conversations with the interpretation. Reports back pain but improving. Await COVID-19 testing while continue treating noted sepsis secondary to acute cystitis.
--- NOTE | 2019-09-15 16:59 | Cat Scan Report ---
CTA CHEST WITH IV CONTRAST INDICATION: Shortness of breath CONTRAST: 100 cc Omnipaque 350 IV COMPARISON: CT abdomen and pelvis 12/14/2018 Three-plane MIP reconstructions were produced. All CT scans at this location are performed using CT d ose reduction for ALARA by means of automated exposure control. NOTE: Resolution is decreased and artifact is introduced by the patient's size. FINDINGS: I see no significant abnormalities of the axillae or chest wall. Views of the upper abdomen show prominent fatty infiltration of the liver with enlargement though incomplete visualization. No obvious focal lesions are seen. Spleen is not significantly enlarged. There is moderate stranding in the upper left pararenal spaces which was not obvious previously and could represent edema and the up per portion of the left kidney appears mildly edematous though the collecting system is not well visu alized. No mediastinal or hilar masses are seen. The lower pole the left lobe of the thyroid shows a hypodens e lesion measuring 2.1 cm appears mildly heterogenous. Trace bilateral pleural effusions are seen. No pneumothorax or pneumomediastinum are noted. No obvious endobronchial lesions are seen. Mild bilateral atelectatic changes are seen in association with the pleural effusions. No areas of co nsolidation are seen. No pulmonary nodules or masses are noted. Aorta shows no aneurysmal dilatation or evidence of dissection. Acceptable opacification of the pulmonary system was achieved. I do not see convincing evidence of pu lmonary thromboembolism. IMPRESSION: 1. No evidence of pulmonary thrombus embolism. No significant acute abnormalities are seen. 2. Lesion in the lower pole of the left lobe of thyroid. Is not a known abnormality, follow-up evalua tion with ultrasound and clinical assessment are suggested. See below. #3. Prominent fatty attrition of the liver with hepatomegaly 4. Development of possible edema surrounding the partially visualized upper pole the left kidney and surrounding tissues. On a prior CT abdomen in 2019 and there was significant pelvocaliectasis associa ken with a distal ureteral calculus but no obvious edema is seen today. Possibilities would include o bstructive process with edema or possibly pyelonephritis. Clinical assessment is suggested. Signer Name: Efrain Lund MD Signed: 09/15/2019 4:55 PM Workstation Name: [id number]
[2019-09-15] MEDS ORDERED: ENOXAPARIN 40 MG/0.4 ML INJ SUB-Q SCH (22:00)
[2019-09-15] MEDS: SODIUM CHLORIDE 0.9% 1000 ML 1,000 ML IV SCH (23:12)
[2019-09-16 05:15] LABS: Basophils % (Auto) 0.4 % (0.0-1.8); Eosinophils # (Auto) 0.1 K/mm3 (0.0-0.4); Eosinophils % (Auto) 1.1 % (0.0-4.3); Hematocrit 33.5 % (30.3-42.9); Hemoglobin 11.6 gm/dl (10.1-14.3); Lymphocytes # (Auto) 1.8 K/mm3 (1.2-5.4); Lymphocytes % (Auto) 17.1 % (13.4-35.0); Mean Corpuscular HGB Conc 35 % (30-34); Mean Corpuscular Volume 85 fl (79-97); Monocytes # (Auto) 0.8 K/mm3 (0.0-0.8); Platelet Count 244 K/mm3 (140-440); Red Blood Count 3.92 M/mm3 (3.65-5.03); Red Cell Distribution Width 15.3 % (13.2-15.2)
[2019-09-16 05:21] VITALS: BP 98/61
[2019-09-16] MEDS: SODIUM CHLORIDE 0.9% 1000 ML 1,000 ML IV SCH (05:25)
[2019-09-16 05:30] LABS: INR 1.08 (0.87-1.13)
[2019-09-16] MEDS ORDERED: cefTRIAXone/NS 2 GM/100 ML 2 GM/100 ML BAG IV SCH (06:00)
[2019-09-16 06:14] LABS: BUN/Creatinine Ratio 11; Blood Urea Nitrogen 9 mg/dL (7-17); Calcium 11.1 mg/dL (8.4-10.2); Hemolysis Index 0
--- NOTE | 2019-09-16 08:20 | Progress Note ---
Assessment and Plan Cultures: Blood culture 09/15/2019 COVID neg Assessment: 34 years old female without any past medical history admitted on 09/15/2019 due to nausea, vomiting, abdominal pain, headache, some shortness of b reath for 3 days: #Severe sepsis: improved; secondary to UTI. Doubt COVID-19 infection. Chest x-ray negative. #Acute UTI: Urinalysis with 121 WBC, large leukocytes. Culture pending. #Hypercalcemia: Of unclear etiology. Per primary team. Recommendations: Continue ceftriaxone 2 g IV once a day day 2 Follow-up urine culture and blood cultures ok to d/c on po abx - cipro 500 mg po bid for 5 days IF susceptible Will follow. Renetta Burton MD Infectious Diseases Peer Specialist [facility] M [phone] O [phone] Subjective Date of service: 09/16/19 Objective - Constitutional Vitals: Vital Signs Temp Pulse Resp BP Pulse Ox 98.2 F 86 18 98/61 98 09/16/19 04:52 09/16/19 04:52 09/16/19 04:52 09/16/19 04:52 09/16/19 04:52 Temperature -Last 24 Hours Temperature 98.2 F Temperature 101.5 F Temperature 98.8 F Temperature 99.7 F - Labs CBC & Chem 7: 09/16/19 04:23 09/16/19 04:23 Labs: Abnormal lab results 09/16/19 09/16/19 Range/Units 04:23 04:23 MCHC 35 H (30-34) % RDW 15.3 H (13.2-15.2) % [place] % (Auto) 8.0 H (0.0-7.3) % Seg Neutrophils % 73.4 H (40.0-70.0) % Sodium 136 L (137-145) mmol/L Glucose 124 H (65-100) mg/dL Calcium 11.1 H (8.4-10.2) mg/dL
--- NOTE | 2019-09-16 11:49 | Progress Note ---
Assessment and Plan # Hypercalcemia Suspect this is an acute on chronic issues, not clear of underlying etiology but likely worsened in setting of dehydration. Calcium has improved from 12.4>11.1. Continue IVF as needed, no role for furosemide currently. Follow up PTH, vitamin D panel to start workup, will check urine calcium/creatinine if remains high. Replete Mg prn. Ok to discharge from renal perspective, will arrange outpatient follow up. # Leukocytosis, Lactic Acidosis Possibly secondary to underlying UTI. ID following, recs appreciated. Follow up cultures. # Suspected 2019 novel coronavirus infection COVID-19 test returned negative Subjective Date of service: 09/16/19 Interval history: No acute noted, feeling well this AM Objective - Vital Signs Vital signs: Vital Signs - 12hr 09/16/19 04:52 Temperature 98.2 F Pulse Rate 86 Respiratory 18 Rate Blood Pressure 98/61 O2 Sat by Pulse 98 Oximetry - General Appearance General appearance: well-developed, well-nourished EENT: mucous membranes moist Neck: no JVD Respiratory: Present: Clear to Ascultation Cardiology: regular, S1S2 Gastrointestinal: normoactive bowel sounds Integumentary: no rash, warm and dry Neurologic: no focal deficit, no asterixis, alert and oriented x3 Psychiatric: mood/affect appropriate - Lab 09/16/19 04:23 09/16/19 04:23 Most recent lab results Calcium 11.1 mg/dL (8.4-10.2) H 09/16/19 04:23 Magnesium 1.60 mg/dL (1.7-2.3) L 09/15/19 04:34 Medications & Allergies - Medications Allergies/Adverse Reactions: Allergies morphine Allergy (Severe, Verified 12/15/18 01:02) Anaphylaxis Home Medications: Home Medications Medication Instructions Recorded Confirmed Last Taken Type Calcitonin,[place] (Nf) [Miacalcin 1 spray NS DAILY #1 bottle 12/17/18 09/15/19 Unknown Rx (Nf)] HYDROcodone/APAP 5-325 [[place] 2 each PO Q6H PRN #10 tablet 12/17/18 09/15/19 Unknown Rx 5-325 mg TAB] Ciprofloxacin HCl [Ciprofloxacin 500 mg PO Q12HR #10 tab 09/16/19 Unknown Rx TAB] Active Medications: Generic Name Dose Route Start Last Admin Trade Name Freq PRN Reason Stop Dose Admin Acetaminophen 650 mg 09/15/19 06:16 09/15/19 22:39 Tylenol PO 650 mg Q4H PRN Administration Pain MILD(1-3)/Fever >100.5/POTTS Enoxaparin Sodium 40 mg 09/15/19 22:00 09/15/19 21:12 Enoxaparin SUB-Q 40 mg QDAY@2200 PHANI Administration Hydromorphone HCl 0.5 mg 09/15/19 06:16 09/15/19 23:12 Dilaudid IV 0.5 mg Q3H PRN Administration Pain , Severe (7-10) Sodium Chloride 1,000 mls @ 150 mls/hr 09/15/19 06:30 09/16/19 05:25 Nacl 0.9% 1000 Ml IV 150 mls/hr DIRECT PHANI Administration Ceftriaxone Sodium 2 gm in 100 mls @ 200 mls/hr 09/16/19 06:00 09/16/19 05:23 Rocephin/Ns 2 Gm/100 Ml IV 200 mls/hr Q24HR@0600 PHANI Administration Magnesium Hydroxide 30 ml 09/15/19 06:16 Milk Of Magnesia PO Q4H PRN Constipation Ondansetron HCl 4 mg 09/15/19 06:16 09/15/19 10:55 Zofran IV 4 mg Q8H PRN Administration Nausea And Vomiting Sodium Chloride 10 ml 09/15/19 10:00 09/16/19 10:03 Sodium Chloride Flush Syringe 10 Ml IV 10 ml BID PHANI Administration Sodium Chloride 10 ml 09/15/19 06:16 Sodium Chloride Flush Syringe 10 Ml IV PRN PRN LINE FLUSH
--- NOTE | 2019-09-16 11:58 | Discharge Summary ---
Providers - Providers Date of Admission: 09/15/19 06:37 Attending physician: VANESSA VITAL MD 09/15/19 06:16 Consult to Physician [CONS] Routine Comment: Consulting Provider: KENDY VILLARREAL Physician Instructions: Reason For Exam: fever, tachycardia. R/O COVID 09/15/19 06:21 Consult to Physician [CONS] Routine Comment: Consulting Provider: MALIA GAUTAM Physician Instructions: Reason For Exam: HYPERCALCEMIA Primary care physician: ANTENNA INSTALLER Hospitalization Reason for admission: Sepsis Condition: Stable Hospital course: 34-year-old female presenting to the emergency room today complaining of generalized body aches and pain, nausea and vomiting with associated abdominal pain. She also admits that she has had some cough which is nonproductive, sore throat, nasal congestion fever and some difficulty breathing prior to reporting to the emergency room. Symptoms were said to have started earlier today. Patient denies any recent travel and no sick contacts. She denies contact with anyone with COVID-19. Upon arrival in the emergency room she was tachycardic. Her work-up was significant for leukocytosis, hypercalcemia of about 12.4 and a UTI. Chest x-ray was unremarkable. Patient during admission was ruled out for COVID-19. She did receive fluids and IV antibiotics with IV fluids. Calcium improved slightly further work-up by nephrology indicated hypercalcemia likely secondary to hyperparathyroidism primary. Patient notes that she is already working on this with the physician. Blood cultures were unrevealing. Patient was discharged on Cipro and to follow- up with primary care physician in a week to further review urinary cultures and also continue working on the noted primary hyperparathyroidism. Prior PTH noted to be elevated, may be indicative of primary hyperparathyroidism. Defer management, workup to outpatient setting. Patient notes already has physician following this. Discharge diagnosis Acute cystitis with pyelonephritis Sepsis secondary to acute cystitis Leukocytosis Lactic acidosis Suspected 2019 novel coronavirus now ruled out Hypercalcemia i Disposition: DC- TO HOME OR SELFCARE Time spent for discharge: 35 minutes Core Measure Documentation - Palliative Care Palliative Care/ Comfort Measures: Not Applicable - Core Measures Any of the following diagnoses?: none Exam - Physical Exam Narrative exam: VITAL SIGNS: Reviewed. GENERAL: The patient appears normally developed, Vital signs as documented. HEAD: No signs of head trauma. EYES: Pupils are equal. Extraocular motions intact. EARS: Hearing grossly intact. MOUTH: Oropharynx is normal. NECK: No adenopathy, no JVD. CHEST: Chest with clear breath sounds bilaterally. No wheezes, rales, or rhonchi. CARDIAC: Regular rate and rhythm. S1 and S2, without murmurs, gallops, or rubs. VASCULAR: No Edema. Peripheral pulses normal and equal in all extremities. ABDOMEN: Soft, non tender and non distended. No rebound or guarding, and no masses palpated. Bowel Sounds normal. MUSCULOSKELETAL: Good range of motion of all major joints. Extremities without clubbing, cyanosis or edema. NEUROLOGIC EXAM: Alert and oriented x 3 No focal sensory or strength deficits. Speech normal. Follows commands. PSYCHIATRIC: Mood normal. SKIN: detial exam as documented in skin assessment - Constitutional Vitals: Temp Pulse Resp BP Pulse Ox 98.2 F 86 18 98/61 98 09/16/19 04:52 09/16/19 04:52 09/16/19 04:52 09/16/19 04:52 09/16/19 04:52 Plan Activity: advance as tolerated, up only with assistance Diet: low fat Special Instructions: record daily weights, record daily BP diary Additional Instructions: Must follow up with Primary doctor for the Hypercalcemia and also possible underlying Hyperparathyrodism Follow up with: KENDY VILLARREAL MD [Staff Physician] - 7 Days PRIMARY MD HARSHA [Primary Care Provider] - 3-5 Days ROSS DE LEON MD [Staff Physician] - 7 Days Prescriptions: Ciprofloxacin HCl [Ciprofloxacin TAB] 500 mg PO Q12HR #10 tab
== END 2019-09-16 13:37 | disposition home or self-care (01) | DRG 872 ==
LOC: ED 02:01 → 3A 06:37
PROVIDERS: ADMIT Internal Medicine Geriatric Medicine; ATTEND Internal Medicine
DX: A41.9 Sepsis, unspecified organism (principal); N30.00 Acute cystitis without hematuria; N10 Acute pyelonephritis; E83.52 Hypercalcemia; R65.20 Severe sepsis without septic shock; Z20.818 Contact with and (suspected) exposure to other bacterial communicable diseases; Z87.442 Personal history of urinary calculi; Z90.49 Acquired absence of other specified parts of digestive tract
CPT/HCPCS: 36415; 71046; 71275; 80048; 80053; 81001; 82140; 82306; 82550; 82728; 82947; 83615; 83735; 83970; 84145; 84443; 85025; 85379; 85610; 86140; 87040; 87086; 87186; 93005; G0378; J0696; J1170; J1650; J2405; J7030; Q9967; U0003-CS

== ENCOUNTER 2020-08-09 22:26 | Emergency (ER) | payer SELFPAY | END 2020-08-10 01:11 | LOC: ED 22:26 | DX: R07.89 Other chest pain (principal); Z53.21 Procedure and treatment not carried out due to patient leaving prior to being seen by health care provider ==

== ENCOUNTER 2021-10-27 10:30 | Emergency (ER) | payer SELFPAY ==
[2021-10-27 14:05] LABS: Bilirubin,Urine Negative (Negative); Color,Urine Yellow (Yellow)
[2021-10-27 14:07] LABS: Blood,Urine 3+ (Negative); Protein,Urine 300 mg/dL mg/dL (Negative)
[2021-10-27 14:08] LABS: HCG Qualitative,Urine Negative (Negative)
[2021-10-27 14:15] LABS: Mucus,Urine FEW /HPF
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
[2021-10-27] MEDS ORDERED: CYCLOBENZAPRINE 10 MG TAB PO ONE (15:42)
[2021-10-27] MEDS ORDERED: oxyCODONE /ACETAMINOPHEN 5-325MG TAB PO ONE (15:42)
[2021-10-27] MEDS ORDERED: KETOROLAC 10 MG TAB PO ONE (15:42)
[2021-10-27] MEDS ORDERED: cephALEXin 500 MG CAP PO ONE (15:48)
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
[2021-10-27 16:30] VITALS: BP 145/88
== END 2021-10-27 16:30 | disposition home or self-care (01) ==
LOC: ED 10:30
DX: N20.0 Calculus of kidney (principal); M54.50 Low back pain, unspecified; Z88.5 Allergy status to narcotic agent; Z90.49 Acquired absence of other specified parts of digestive tract; V89.2XXA Person injured in unspecified motor-vehicle accident, traffic, initial encounter; Y93.89 Activity, other specified; Y92.89 Other specified places as the place of occurrence of the external cause; Y99.8 Other external cause status
CPT/HCPCS: 74176; 81001; 81025; 87086; 99284